=== PATIENT | female | born 1985 | race African-American/Black ===

== ENCOUNTER 2019-03-13 22:31 | Emergency (ER) | payer SELFPAY ==
[2019-03-13] MEDS ORDERED: SMZ./TMP. 800/160 MG TABLET ONE (23:04)
[2019-03-13] MEDS ORDERED: ONDANSETRON 4 MG (ODT) TAB ONE (23:05)
[2019-03-13] MEDS ORDERED: CODEINE 30MG/APAP 300MG TAB ONE (23:05)
--- NOTE | 2019-03-13 23:48 | ER ---
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 ak1 pt c/o nausea and fatigue. pt with steady gait to ER8. Transition of care: patient was not received from another setting of care. Onset of symptoms is unknown. Risk Assessment: Do you want to hurt yourself or someone else? Patient reports no desire to harm self or others. Initial Sepsis Screen: Does the patient meet any 2 criteria? No. Patient's initial sepsis screen is negative. Does the patient have a suspected source of infection? No. Patient's initial sepsis screen is negative. Care prior to arrival: None. 22:44 Method Of Arrival: Ambulatory ak1 22:44 Acuity: ALO 3 ak1 Triage Assessment: 22:45 General: Appears in no apparent distress. Behavior is cooperative. Pain: Complains of ak1 pain in right eye. EENT: No signs and/or symptoms were reported regarding the EENT system. Neuro: Level of Consciousness is awake, alert, obeys commands, Oriented to person, place, time, situation, Appropriate for age Fruit Cutter are equal bilaterally Moves all extremities. Full function Gait is steady, Speech is normal. Cardiovascular: No deficits noted. Respiratory: Airway is patent Respiratory effort is even, unlabored. GI: Abdomen is round obese, Reports nausea. : No signs and/or symptoms were reported regarding the genitourinary system. Derm: abscess to right eye lid. Musculoskeletal: No signs and/or symptoms reported regarding the musculoskeletal system. 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 - Social history:: Smoking status: Patient/guardian denies using tobacco. - Ebola Screening: : No symptoms or risks identified at this time. Screenin:47 Abuse screen: Denies threats or abuse. Denies injuries from another. Nutritional ak1 screening: No deficits noted. Tuberculosis screening: No symptoms or risk factors identified. Fall Risk None identified. Assessment: 03/14 00:04 Reassessment: Patient appears in no apparent distress at this time. Patient and/or jb4 family updated on plan of care and expected duration. Pain level reassessed. Patient is alert, oriented x 3, equal unlabored respirations, skin warm/dry/pink. PT verbalized understanding of d/c and follow up instructions. ambulated out of ED with family. Vital Signs: 03/13 22:44 BP 119 / 74; Pulse 87; Resp 18; Temp 98.1; Pulse Ox 100% on R/A; Weight 138.35 kg (R); ak1 Height 5 ft. 4 in. (162.56 cm) (R); Pain 6/10; 23:17 BP 99 / 52; Pulse 80; Resp 18; Pulse Ox 98% on R/A; ak1 10 00:00 BP 97 / 52; Pulse 80; Resp 16; Pulse Ox 97% on R/A; jb4 03/13 22:44 Body Mass Index 52.35 (138.35 kg, 162.56 cm) ak1 ED Course: 03/13 22:34 Patient arrived in ED. cl3 22:38 Jacqueline Thakkar FNP-C [facility] kb 22:38 Trent Juan MD is Attending Physician. kb 22:44 Arm band placed on Patient placed in an exam room, on a stretcher, on pulse oximetry, ak1 Patient notified of wait time. 22:45 Triage completed. ak1 22:47 Patient has correct armband on for positive identification. Placed in gown. Bed in low ak1 position. Call light in reach. Side rails up X2. Pulse ox on. NIBP on. 22:58 Roly Goff RN is Primary Nurse. jb4 03/14 00:06 No provider procedures requiring assistance completed. Patient did not have IV access jb4 during this emergency room visit. Administered Medications: 03/13 23:13 Drug: Tylenol #3 (300 mg-30 mg) 1 tablet {Note: Rass score 0.} Route: PO; jb4 23:40 Follow up: Response: No adverse reaction; Pain is decreased; RASS: Alert and Calm (0) jb4 23:13 Drug: Bactrim (160 mg-800 mg (DS) 1 tablet Route: PO; jb4 03/14 00:06 Follow up: Response: No adverse reaction jb4 03/13 23:14 Drug: Zofran 4 mg Route: PO; jb4 23:40 Follow up: Response: No adverse reaction; Nausea is decreased jb4 Outcome: 23:47 Discharge ordered by MD. quinn 03/14 00:06 Discharged to home ambulatory, with family. jb4 Condition: stable Discharge instructions given to patient, family, Instructed on discharge instructions, follow up and referral plans. medication usage, Demonstrated understanding of instructions, follow-up care, medications, Prescriptions given X 3. 00:07 Patient left the ED. jb4 Signatures: Jacqueline Thakkar, RUBBER COMPOUNDER-C DELANEY-Rona Andrade RN RN ak1 Roly Goff RN RN jb4 Christine Jackson cl3
--- NOTE | 2019-03-13 23:48 | EDPHYS ---
Physician Documentation [facility] Name: Delmi Cortez Age: 33 yrs Sex: Female : 1985 Arrival Date: 03/13/2019 Time: 22:34 Bed 8 Private MD: ED Physician Trent Juan HPI: 03/13 23:17 This 33 yrs old Female presents to ER via Ambulatory with complaints of Nausea/Vomiting.kb 23:17 The patient presents to the emergency department with nausea. Onset: The kb symptoms/episode began/occurred today. Possible causes: unknown. The symptoms are aggravated by nothing. The symptoms are alleviated by nothing. Associated signs and symptoms: Pertinent positives: nausea, malaise. Severity of symptoms: At their worst the symptoms were mild in the emergency department the symptoms are unchanged. The patient has not experienced similar symptoms in the past. The patient has not recently seen a physician. Pt reports malaise, nausea and abscess to right eyebrow that started today. 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 - Social history:: Smoking status: Patient/guardian denies using tobacco. - Ebola Screening: : No symptoms or risks identified at this time. ROS: 23:17 Neck: Negative for injury, pain, and swelling, Cardiovascular: Negative for chest pain, kb palpitations, and edema, Respiratory: Negative for shortness of breath, cough, wheezing, and pleuritic chest pain, Back: Negative for injury and pain, MS/Extremity: Negative for injury and deformity, Neuro: Negative for headache, weakness, numbness, tingling, and seizure. 23:17 Constitutional: Positive for malaise. 23:17 Abdomen/GI: Positive for nausea. 23:17 Skin: Positive for abscess, of the outer aspect of right eyebrow. Exam: 23:22 Constitutional: This is a well developed, well nourished patient who is awake, alert, kb and in no acute distress. Head/Face: Normocephalic, atraumatic. ENT: Nares patent. No nasal discharge, no septal abnormalities noted. Tympanic membranes are normal and external auditory canals are clear. Oropharynx with no redness, swelling, or masses, exudates, or evidence of obstruction, uvula midline. Mucous membranes moist. Neck: Trachea midline, no thyromegaly or masses palpated, and no cervical lymphadenopathy. Supple, full range of motion without nuchal rigidity, or vertebral point tenderness. No Meningismus. Chest/axilla: Normal chest wall appearance and motion. Nontender with no deformity. No lesions are appreciated. Cardiovascular: Regular rate and rhythm with a normal S1 and S2. No gallops, murmurs, or rubs. Normal PMI, no JVD. No pulse deficits. Respiratory: Lungs have equal breath sounds bilaterally, clear to auscultation and percussion. No rales, rhonchi or wheezes noted. No increased work of breathing, no retractions or nasal flaring. Abdomen/GI: Soft, non-tender, with normal bowel sounds. No distension or tympany. No guarding or rebound. No evidence of tenderness throughout. Back: No spinal tenderness. No costovertebral tenderness. Full range of motion. MS/ Extremity: Pulses equal, no cyanosis. Neurovascular intact. Full, normal range of motion. Neuro: Awake and alert, GCS 15, oriented to person, place, time, and situation. Cranial nerves II-XII grossly intact. Motor strength 5/5 in all extremities. Sensory grossly intact. Cerebellar exam normal. Normal gait. 23:22 Skin: abscess, that is small, of the outer aspect of right eyebrow, with induration. Vital Signs: 22:44 BP 119 / 74; Pulse 87; Resp 18; Temp 98.1; Pulse Ox 100% on R/A; Weight 138.35 kg (R); ak1 Height 5 ft. 4 in. (162.56 cm) (R); Pain 6/10; 23:17 BP 99 / 52; Pulse 80; Resp 18; Pulse Ox 98% on R/A; ak1 03/14 00:00 BP 97 / 52; Pulse 80; Resp 16; Pulse Ox 97% on R/A; jb4 03/13 22:44 Body Mass Index 52.35 (138.35 kg, 162.56 cm) ak1 MDM: 03/13 22:38 Patient medically screened. kb 23:22 Data reviewed: vital signs, nurses notes. Data interpreted: Pulse oximetry: on room air kb is 98 %. Interpretation: normal. Counseling: I had a detailed discussion with the patient and/or guardian regarding: the historical points, exam findings, and any diagnostic results supporting the discharge/admit diagnosis, lab results, the need for outpatient follow up, a family practitioner, to return to the emergency department if symptoms worsen or persist or if there are any questions or concerns that arise at home. 23:23 ED course: Pt denies abd pain. Reports only nausea with malaise ("I just don't feel kb good"). No abd tenderness upon exam. 03/13 23:02 Order name: Flu; Complete Time: 23:44 kb Administered Medications: 23:13 Drug: Tylenol #3 (300 mg-30 mg) 1 tablet {Note: Rass score 0.} Route: PO; [facility] 23:40 Follow up: Response: No adverse reaction; Pain is decreased; RASS: Alert and Calm (0) [facility] 23:13 Drug: Bactrim (160 mg-800 mg (DS) 1 tablet Route: PO; [facility] 03/14 00:06 Follow up: Response: No adverse reaction [facility] 03/13 23:14 Drug: Zofran 4 mg Route: PO; [facility] 23:40 Follow up: Response: No adverse reaction; Nausea is decreased [facility] Disposition: 03/14 07:12 Co-signature as Attending Physician, Trent Juan MD Available for consultation at ps1 all times . Disposition: 03/13/19 23:47 Discharged to Home. Impression: Cutaneous abscess of face - right eyebrow, Nausea, Malaise and fatigue. - Condition is Stable. - Discharge Instructions: Skin Abscess, [id number]. - Prescriptions for Zofran 4 mg Oral Tablet - take 1 tablet by ORAL route every 12 hours As needed; 20 tablet. Bactrim DS 800- 160 mg Oral Tablet - take 1 tablet by ORAL route every 12 hours for 7 days; 14 tablet. Diclofenac Sodium 75 mg Oral Tablet, Delayed Release (E.C.) - take 1 tablet by ORAL route 2 times per day As needed; 30 tablet. - Medication Reconciliation Form, Thank You Letter, Antibiotic Education, Prescription Opioid Use form. - Follow up: Emergency Department; When: As needed; Reason: Worsening of condition. Follow up: Private Physician; When: 2 - 3 days; Reason: Recheck today's complaints, Continuance of care, Re-evaluation by your physician. Signatures: Dispatcher [employer] EDMS Thakkar Jacqueline, DELANEY-C JUNIOR ARCHITECT-Rona Andrade, RN RN ak1 Roly Goff, RN RN jb4 Trent Juan MD MD ps1 Corrections: (The following items were deleted from the chart) 03/13 23:47 23:47 03/13/2019 23:47 Discharged to Home. Impression: Cutaneous abscess of face - kb right eyebrow; Nausea. Condition is Stable. Forms are Medication Reconciliation Form, Thank You Letter, Antibiotic Education, Prescription Opioid Use. Follow up: Emergency Department; When: As needed; Reason: Worsening of condition. Follow up: Private Physician; When: 2 - 3 days; Reason: Recheck today's complaints, Continuance of care, Re-evaluation by your physician. kb 03/14 00:07 03/13 23:47 03/13/2019 23:47 Discharged to Home. Impression: Cutaneous abscess of face jb4 - right eyebrow; Nausea; Malaise and fatigue. Condition is Stable. Discharge Instructions: Skin Abscess, [id number]. Prescriptions for Zofran 4 mg Oral Tablet - take 1 tablet by ORAL route every 12 hours As needed; 20 tablet, Bactrim DS 800-160 mg Oral Tablet - take 1 tablet by ORAL route every 12 hours for 7 days; 14 tablet. and Forms are Medication Reconciliation Form, Thank You Letter, Antibiotic Education, Prescription Opioid Use. Follow up: Emergency Department; When: As needed; Reason: Worsening of condition. Follow up: Private Physician; When: 2 - 3 days; Reason: Recheck today's complaints, Continuance of care, Re-evaluation by your physician. kb
[2019-03-14 00:46] VITALS: TEMP 98.1
[2019-03-14 00:48] VITALS: BP 97/52; O2SAT 97
== END 2019-03-14 00:07 | disposition home or self-care (01) ==
LOC: ER 22:31
DX: L02.01 Cutaneous abscess of face (principal); R53.81 Other malaise; R53.83 Other fatigue
CPT/HCPCS: 87804; 99283

== ENCOUNTER 2019-03-17 02:13 | Emergency (ER) | payer SELFPAY ==
[2019-03-17] MEDS ORDERED: CLINDAMYCIN 600MG/D5W 600 MG/50 ML BAG IV ONE (03:13)
--- NOTE | 2019-03-17 03:26 | EDPHYS ---
Physician Documentation [facility] Name: Victor M Cortez Age: 33 yrs Sex: Female : 1985 Arrival Date: 03/17/2019 Time: 02:16 Bed 7 Private MD: ED Physician Rajendra Bennett HPI: 03/17 03:36 This 33 yrs old Black Female presents to ER via Ambulatory with complaints of Eye gs Swelling. 03:36 The patient presents with an abscess of the right supraorbital ridge and right upper gs eyelid. Description: The affected area is small, confluent, fluctuant, warm. Onset: The symptoms/episode began/occurred 4 day(s) ago. Associated signs and symptoms: Pertinent positives: nausea, Pertinent negatives: fever. Severity of symptoms: At their worst the symptoms were severe, in the emergency department the symptoms are unchanged. The patient has not experienced similar symptoms in the past. 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 - Social history:: Smoking status: Patient/guardian denies using tobacco. - Ebola Screening: : No symptoms or risks identified at this time. ROS: 03:36 All other systems are negative. gs Exam: 03:36 Head/Face: Normocephalic, atraumatic. ENT: Nares patent. No nasal discharge, no gs septal abnormalities noted. Tympanic membranes are normal and external auditory canals are clear. Oropharynx with no redness, swelling, or masses, exudates, or evidence of obstruction, uvula midline. Mucous membranes moist. Neck: Trachea midline, no thyromegaly or masses palpated, and no cervical lymphadenopathy. Supple, full range of motion without nuchal rigidity, or vertebral point tenderness. No Meningismus. Chest/axilla: Normal chest wall appearance and motion. Nontender with no deformity. No lesions are appreciated. Cardiovascular: Regular rate and rhythm with a normal S1 and S2. No gallops, murmurs, or rubs. Normal PMI, no JVD. No pulse deficits. Respiratory: Lungs have equal breath sounds bilaterally, clear to auscultation and percussion. No rales, rhonchi or wheezes noted. No increased work of breathing, no retractions or nasal flaring. Abdomen/GI: Soft, non-tender, with normal bowel sounds. No distension or tympany. No guarding or rebound. No evidence of tenderness throughout. Back: No spinal tenderness. No costovertebral tenderness. Full range of motion. Skin: Warm, dry with normal turgor. Normal color with no rashes, no lesions, and no evidence of cellulitis. MS/ Extremity: Pulses equal, no cyanosis. Neurovascular intact. Full, normal range of motion. Neuro: Awake and alert, GCS 15, oriented to person, place, time, and situation. Cranial nerves II-XII grossly intact. Motor strength 5/5 in all extremities. Sensory grossly intact. Cerebellar exam normal. Normal gait. 03:36 Constitutional: The patient appears alert, awake. 03:36 Eyes: Periorbital structures: cellulitis, swelling, on the right supraorbital ridge and right upper eyelid, Conjunctiva: normal, Anterior chamber: normal. Vital Signs: 02:30 BP 129 / 68; Pulse 91; Resp 16 S; Temp 98.3(O); Pulse Ox 99% on R/A; Weight 138.35 kg bb (R); Height 5 ft. 4 in. (162.56 cm) (R); Pain 10/10; 03:50 BP 138 / 92; Pulse 83; Resp 18; Pulse Ox 100% ; ea 05:07 BP 107 / 53; Pulse 77; Resp 17 S; Pulse Ox 98% on R/A; Pain 4/10; cc3 02:30 Body Mass Index 52.35 (138.35 kg, 162.56 cm) bb MDM: 02:54 Patient medically screened. gs 03:36 Differential diagnosis: abscess. Data reviewed: vital signs, nurses notes. Counseling: gs I had a detailed discussion with the patient and/or guardian regarding: the historical points, exam findings, and any diagnostic results supporting the discharge/admit diagnosis, the need to transfer to another facility, for higher level of care, [facility] does not immediately have the required specialist. 03/17 02:46 Order name: CBC with Diff gs 03/17 02:46 Order name: Basic Metabolic Panel gs Administered Medications: 03:20 Drug: Clindamycin 600 mg Route: IVPB; Infused Over: 30 mins; Site: right antecubital; ea 04:43 Follow up: Response: No adverse reaction; IV Status: Completed infusion; IV Intake: ea 100ml 04:02 Drug: fentaNYL (PF) 50 mcg Route: IVP; Site: right hand; ea 04:57 Follow up: Response: No adverse reaction; Pain is decreased; RASS: Alert and Calm (0) cc3 Disposition: 03/17/19 03:25 Transfer ordered to [facility]. Diagnosis is Cutaneous abscess of face. - Reason for transfer: Higher level of care. - Accepting physician is conor. - Condition is Stable. - Problem is new. - Symptoms have improved. Signatures: Dispatcher [employer] EDTara Gong RN RN Leatha Masterson RN RN ea Starr, Gregory, MD MD gs Cordel, Charlene cc3 Corrections: (The following items were deleted from the chart) 05:13 02:45 Orbits W/Cont ordered. [facility] EDMI 05:19 03:25 03/17/2019 03:25 Transfer ordered to [facility]. Diagnosis is Cutaneous cc3 abscess of face. Reason for transfer: Higher level of care. Accepting physician is conor. Condition is Stable. Problem is new. Symptoms have improved.
--- NOTE | 2019-03-17 03:26 | ER ---
Nurse's Notes [facility] Name: Victor M Cortez Age: 33 yrs Sex: Female : 1985 Arrival Date: 03/17/2019 Time: 02:16 Bed 7 Private MD: Diagnosis: Cutaneous abscess of face Presentation: 03/17 02:28 Presenting complaint: Patient states: she was seen here 3 days ago for swelling to her bb right upper lid and given antibiotics but the swelling is getting worse and the pain is getting worse it is now 10/10 and radiating to her right ear. Transition of care: patient was not received from another setting of care. Onset of symptoms was March 11, 2019. Risk Assessment: Do you want to hurt yourself or someone else? Patient reports no desire to harm self or others. Initial Sepsis Screen: Does the patient meet any 2 criteria? No. Patient's initial sepsis screen is negative. Does the patient have a suspected source of infection? No. Patient's initial sepsis screen is negative. Care prior to arrival: None. 02:28 Method Of Arrival: Ambulatory bb 02:28 Acuity: ALO 3 bb Triage Assessment: 02:25 General: Appears in no apparent distress. uncomfortable, Behavior is cooperative, cc3 appropriate for age. Pain: Complains of pain in right upper eyelid. EENT: Lid(s) abscess on the right upper eyelid. Neuro: Level of Consciousness is awake, alert, obeys commands, Oriented to person, place, time, situation, Appropriate for age. Cardiovascular: Denies chest pain, Heart tones S1 S2 present Capillary refill < 3 seconds in bilateral fingers Patient's skin is warm and dry. Respiratory: Airway is patent Respiratory effort is even, unlabored, Respiratory pattern is regular, symmetrical, Breath sounds are clear bilaterally. GI: Abdomen is round obese, Bowel sounds present X 4 quads. : No signs and/or symptoms were reported regarding the genitourinary system. Derm: Skin is intact, is healthy with good turgor, Skin is pink, warm \\T\\ dry. normal. Musculoskeletal: Circulation, motion, and sensation intact. Range of motion: intact in all extremities. 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 - Social history:: Smoking status: Patient/guardian denies using tobacco. - Ebola Screening: : No symptoms or risks identified at this time. Screenin:25 Abuse screen: Denies threats or abuse. Denies injuries from another. Nutritional cc3 screening: No deficits noted. Tuberculosis screening: No symptoms or risk factors identified. Fall Risk Ambulatory Aid- None/Bed Rest/Nurse Assist (0 pts). Gait- Normal/Bed Rest/Wheelchair (0 pts) Mental Status- Oriented to own ability (0 pts). Assessment: 02:25 General: see triage assessment. cc3 03:20 Reassessment: Report called to Diana MENJIVAR at [facility]. ea 04:45 Reassessment: Patient appears in no apparent distress at this time. Patient and/or cc3 family updated on plan of care and expected duration. Pain level reassessed. Patient is alert, oriented x 3, equal unlabored respirations, skin warm/dry/pink. Patient came back from CT scan department but alarm installation technician Tawanna said CT scan procedure was not done because patient's IV cannula got infiltrated when she pushed the IV contrast and that the patient refused for another IV, Dr. Bennett informed. Moist compress applied to left antecubital area infiltration. 05:10 Reassessment: Patient appears in no apparent distress at this time. Patient and/or cc3 family updated on plan of care and expected duration. Pain level reassessed. Patient is alert, oriented x 3, equal unlabored respirations, skin warm/dry/pink. [facility] came for patient transport. Patient left ER vitally stable by EMS stretcher, no valuables left in the patient's room. Patient denies pain at this time. Vital Signs: 02:30 BP 129 / 68; Pulse 91; Resp 16 S; Temp 98.3(O); Pulse Ox 99% on R/A; Weight 138.35 kg bb (R); Height 5 ft. 4 in. (162.56 cm) (R); Pain 10/10; 03:50 BP 138 / 92; Pulse 83; Resp 18; Pulse Ox 100% ; ea 05:07 BP 107 / 53; Pulse 77; Resp 17 S; Pulse Ox 98% on R/A; Pain 4/10; cc3 02:30 Body Mass Index 52.35 (138.35 kg, 162.56 cm) bb ED Course: 02:16 Patient arrived in ED. cf2 02:19 Rajendra Bennett MD is Attending Physician. gs 02:25 Judith Webb is Primary Nurse. cc3 02:29 Triage completed. bb 02:30 Arm band placed on Patient placed in an exam room, on a stretcher, on pulse oximetry. bb 03:00 Patient has correct armband on for positive identification. Bed in low position. Call ea light in reach. Side rails up X2. 03:17 Radiology exam delayed due to lab results not completed at this time. (BUN/Creatinine) kw1 test not completed at this time. 03:20 Inserted saline lock: 20 gauge in right antecubital area, using aseptic technique. cc3 Blood collected. 03:37 Radiology exam delayed due to lab results not completed at this time. (BUN/Creatinine) kw1 test not completed at this time. 03:45 IV discontinued, intact, bleeding controlled, No redness/swelling at site. Pressure cc3 dressing applied. 04:00 Inserted saline lock: 20 gauge in right hand, using aseptic technique. inserted by RN orin Zhang. 04:12 Radiology exam delayed due to IV insertion attempt and/or patient not having kw1 appropriate IV at this time. Patient requested that original AC IV be DC'd due to "discomfort." Now only has IV in hand. 04:30 Inserted saline lock: 18 gauge in left antecubital area, using aseptic technique. cc3 inserted by charge nurse TIARA Pacheco. 04:50 IV discontinued, intact, bleeding controlled, No redness/swelling at site. Pressure cc3 dressing applied. 04:57 No provider procedures requiring assistance completed. ea Administered Medications: 03:20 Drug: Clindamycin 600 mg Route: IVPB; Infused Over: 30 mins; Site: right antecubital; ea 04:43 Follow up: Response: No adverse reaction; IV Status: Completed infusion; IV Intake: ea 100ml 04:02 Drug: fentaNYL (PF) 50 mcg Route: IVP; Site: right hand; ea 04:57 Follow up: Response: No adverse reaction; Pain is decreased; RASS: Alert and Calm (0) cc3 Intake: 04:43 IV: 100ml; Total: 100ml. ea Outcome: 03:25 ER care complete, transfer ordered by . 04:58 Instructed on the need for transfer. ea 05:10 Transferred by ground EMS Transfer form completed. Note: [facility] cc3 05:10 Condition: stable 05:19 Patient left the ED. cc3 Signatures: Tara Alexandra RN RN bb Antunez, Elena, RN RN ea Starr, Gregory, MD MD gs Wilhelm, Kimberly kw1 Judith Webb cc3 Omari Cabrera cf2 Corrections: (The following items were deleted from the chart) 05:17 04:45 Reassessment: Patient appears in no apparent distress at this time. Patient cc3 and/or family updated on plan of care and expected duration. Pain level reassessed. Patient is alert, oriented x 3, equal unlabored respirations, skin warm/dry/pink. Patient came back from CT scan department but alarm installation technician Tawanna said CT scan procedure was not done because patient's IV cannula got infiltrated when she pushed the IV contrast, Dr. Bennett informed. cc3 05:19 05:07 BP 107 / 53; Pulse 77bpm; Resp 17bpm; Spontaneous; Pulse Ox 98% RA; cc3 cc3 05:19 04:45 Reassessment: Patient appears in no apparent distress at this time. Patient cc3 and/or family updated on plan of care and expected duration. Pain level reassessed. Patient is alert, oriented x 3, equal unlabored respirations, skin warm/dry/pink. Patient came back from CT scan department but alarm installation technician Tawanna said CT scan procedure was not done because patient's IV cannula got infiltrated when she pushed the IV contrast, Dr. Bennett informed. Moist compress applied to left antecubital area infiltration. cc3
[2019-03-17] MEDS ORDERED: FENTANYL CITR 100 MCG/2 ML ONE (03:33)
[2019-03-17 04:06] LABS: Absolute Lymphocytes (CBC) 2.9 K/uL (0.7-4.9); Basophils % 0.5 % (0-1.3); Hematocrit 30.5 % (36.0-45.0); Lymphocytes % 39.7 % (15.3-44.8); MPV 8.9 fL (7.6-11.3); RBC Red Blood Cell Count 3.73 M/uL (3.86-4.86)
[2019-03-17 04:13] LABS: BUN Blood Urea Nitrogen 10 mg/dL (7-18); Bicarbonate 29 mmol/L (21-32); Glucose Level 75 mg/dL (74-106); Potassium 3.6 mmol/L (3.5-5.1); Sodium Level 141 mmol/L (136-145)
[2019-03-17 05:29] VITALS: TEMP 98.3
[2019-03-17 05:31] VITALS: BP 107/53; O2SAT 98
== END 2019-03-17 05:19 | disposition short-term general hospital (02) ==
LOC: ER 02:13
DX: L02.01 Cutaneous abscess of face (principal)
CPT/HCPCS: 36415; 80048; 85025; 96365; 96375; 99285; J3010

== ENCOUNTER 2019-04-11 17:07 | Emergency (ER) | payer OTHER, SELFPAY ==
--- NOTE | 2019-04-11 19:39 | EDPHYS ---
Physician Documentation [facility] Name: Victor M Cortez Age: 33 yrs Sex: Female : 1985 Arrival Date: 04/11/2019 Time: 17:09 Bed 14 Private MD: ED Physician Frederick Lim HPI: 04/11 18:37 This 33 yrs old Black Female presents to ER via Ambulatory with complaints of Flu jr8 Symptoms. 18:37 Patient for two days has had body aches, chills, cough, congestion, and runny nose. jr8 Denies fevers or shortness of breath. Severity of symptoms: At their worst the symptoms were mild in the emergency department the symptoms are unchanged. The patient has not experienced similar symptoms in the past. The patient has not recently seen a physician. 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 - Ebola Screening: : Patient negative for fever greater than or equal to 101.5 degrees Fahrenheit, and additional compatible Ebola Virus Disease symptoms. - Social history:: Smoking status: Patient uses tobacco products, denies chronic smoking, but will smoke occasionally. ROS: 18:37 Constitutional: Positive for body aches, chills, malaise, Negative for fever, poor PO jr8 intake. 18:37 ENT: Positive for rhinorrhea, sinus congestion, Negative for sore throat. 18:37 Respiratory: Positive for cough, Negative for dyspnea on exertion, shortness of breath, sputum production, wheezing. 18:37 All other systems are negative. Exam: 18:37 Eyes: Pupils equal round and reactive to light, extra-ocular motions intact. Lids and jr8 lashes normal. Conjunctiva and sclera are non-icteric and not injected. Cornea within normal limits. Periorbital areas with no swelling, redness, or edema. ENT: Nares patent. No nasal discharge, no septal abnormalities noted. Tympanic membranes are normal and external auditory canals are clear. Oropharynx with no redness, swelling, or masses, exudates, or evidence of obstruction, uvula midline. Mucous membranes moist. Neck: Trachea midline, no thyromegaly or masses palpated, and no cervical lymphadenopathy. Supple, full range of motion without nuchal rigidity, or vertebral point tenderness. No Meningismus. Cardiovascular: Regular rate and rhythm with a normal S1 and S2. No gallops, murmurs, or rubs. Normal PMI, no JVD. No pulse deficits. Respiratory: Lungs have equal breath sounds bilaterally, clear to auscultation and percussion. No rales, rhonchi or wheezes noted. No increased work of breathing, no retractions or nasal flaring. Abdomen/GI: Soft, non-tender, with normal bowel sounds. No distension or tympany. No guarding or rebound. No evidence of tenderness throughout. Back: No spinal tenderness. No costovertebral tenderness. Full range of motion. Skin: Warm, dry with normal turgor. Normal color with no rashes, no lesions, and no evidence of cellulitis. MS/ Extremity: Pulses equal, no cyanosis. Neurovascular intact. Full, normal range of motion. Neuro: Awake and alert, GCS 15, oriented to person, place, time, and situation. Cranial nerves II-XII grossly intact. Motor strength 5/5 in all extremities. Sensory grossly intact. Cerebellar exam normal. Normal gait. Vital Signs: 17:33 Pulse 83; Resp 22; Temp 98.9(O); Pulse Ox 100% ; Weight 145.15 kg; Height 5 ft. 4 in. sv (162.56 cm); 17:46 BP 112 / 58; rb1 18:33 BP 143 / 83; Pulse 79; Resp 19; Pulse Ox 100% on R/A; rb1 19:30 BP 118 / 73; Pulse 77; Resp 16; Pulse Ox 100% on R/A; jb4 17:33 Body Mass Index 54.93 (145.15 kg, 162.56 cm) sv MDM: 18:04 Patient medically screened. jr8 19:38 Data reviewed: vital signs, nurses notes, lab test result(s), Flu: negative and as a jr8 result, I will discharge patient. Data interpreted: Pulse oximetry: on room air is 100 %. Interpretation: normal. Counseling: I had a detailed discussion with the patient and/or guardian regarding: the historical points, exam findings, and any diagnostic results supporting the discharge/admit diagnosis, lab results, the need for outpatient follow up, a family practitioner, to return to the emergency department if symptoms worsen or persist or if there are any questions or concerns that arise at home. 04/11 18:05 Order name: Flu; Complete Time: 19:37 rb1 Administered Medications: No medications were administered Disposition: 04/12 07:20 Co-signature as Attending Physician, Frederick Lim MD I agree with the assessment and kdr plan of care. Disposition: 04/11/19 19:38 Discharged to Home. Impression: Acute upper respiratory infection, unspecified. - Condition is Stable. - Discharge Instructions: Upper Respiratory Infection, Adult. - Prescriptions for Prednisone 20 mg Oral Tablet - take 1 tablet by ORAL route once daily for 5 days; 5 tablet. Zithromax Z- Ravi 250 mg Oral Tablet - take 1 tablet by ORAL route as directed for 5 days Day 1 - take two (2) tablets one time. Day 2, 3, 4 , 5 take one (1) tablet once daily.; 6 tablet. Guaifenesin AC 10- 100 mg/5 mL Oral Liquid - take 10 milliliter by ORAL route every 4 hours As needed; 240 milliliter. - Medication Reconciliation Form, Thank You Letter, Antibiotic Education, Prescription Opioid Use form. - Follow up: Private Physician; When: 2 - 3 days; Reason: Recheck today's complaints, Continuance of care, Re-evaluation by your physician. - Problem is new. - Symptoms have improved. Signatures: Dispatcher [employer] EDND Sole Valencia RN RN sv Rittger, Kevin, MD MD [facility] Krishna Manuel PA PA jr8 Nina Aguilera, RN RN rb1 Roly Goff RN RN jb4 Corrections: (The following items were deleted from the chart) 04/11 17:33 17:33 PMHx: None; sv sv 20:01 19:38 04/11/2019 19:38 Discharged to Home. Impression: Acute upper respiratory jb4 infection, unspecified. Condition is Stable. Forms are Medication Reconciliation Form, Thank You Letter, Antibiotic Education, Prescription Opioid Use. Follow up: Private Physician; When: 2 - 3 days; Reason: Recheck today's complaints, Continuance of care, Re-evaluation by your physician. Problem is new. Symptoms have improved. jr8
--- NOTE | 2019-04-11 19:39 | ER ---
Nurse's Notes [facility] Name: Victor M Cortez Age: 33 yrs Sex: Female : 1985 Arrival Date: 04/11/2019 Time: 17:09 Bed 14 Private MD: Diagnosis: Acute upper respiratory infection, unspecified Presentation: 04/11 17:32 Presenting complaint: Patient states: cough, body aches, subjective fever,fatigue 2 sv days. Transition of care: patient was not received from another setting of care. Onset of symptoms was April 09, 2019. Risk Assessment: Do you want to hurt yourself or someone else? Patient reports no desire to harm self or others. Care prior to arrival: None. 17:32 Method Of Arrival: Ambulatory sv 17:32 Acuity: ALO 4 sv 17:35 Initial Sepsis Screen: Does the patient have a suspected source of infection? No. rb1 Patient's initial sepsis screen is negative. 17:47 Initial Sepsis Screen: Does the patient meet any 2 criteria? No. Patient's initial rb1 sepsis screen is negative. 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 - Ebola Screening: : Patient negative for fever greater than or equal to 101.5 degrees Fahrenheit, and additional compatible Ebola Virus Disease symptoms. - Social history:: Smoking status: Patient uses tobacco products, denies chronic smoking, but will smoke occasionally. Screenin:35 Abuse screen: Denies threats or abuse. Nutritional screening: No deficits noted. rb1 Tuberculosis screening: No symptoms or risk factors identified. Fall Risk None identified. Assessment: 17:35 General: Appears uncomfortable, obese, Behavior is cooperative, Reports fever for rb1 fatigue for x 2 days. Pain: Complains of pain in bodyaches Pain currently is 8 out of 10 on a pain scale. Pain began x 2 days. Neuro: Level of Consciousness is awake, alert, obeys commands, Oriented to person, place, time, situation. Cardiovascular: Capillary refill < 3 seconds is brisk in bilateral fingers. Respiratory: Reports cough that is Airway is patent Respiratory effort is even, unlabored, Respiratory pattern is regular, symmetrical. GI: Reports nausea, vomiting, since x 2 days. : No signs and/or symptoms were reported regarding the genitourinary system. Derm: Skin is dry, Skin is normal, Skin temperature is warm. 18:33 Reassessment: Patient appears in no apparent distress at this time. No changes from rb1 previously documented assessment. 19:15 Reassessment: Patient appears in no apparent distress at this time. Patient and/or jb4 family updated on plan of care and expected duration. Pain level reassessed. PT is resting in bed with family at the bedside. Respirations are even and unlabored, no s/s of distress noted. 20:00 Reassessment: Patient appears in no apparent distress at this time. Patient and/or jb4 family updated on plan of care and expected duration. Pain level reassessed. Patient is alert, oriented x 3, equal unlabored respirations, skin warm/dry/pink. PT verbalized understanding of d/c and follow up instructions. Vital Signs: 17:33 Pulse 83; Resp 22; Temp 98.9(O); Pulse Ox 100% ; Weight 145.15 kg; Height 5 ft. 4 in. sv (162.56 cm); 17:46 BP 112 / 58; rb1 18:33 BP 143 / 83; Pulse 79; Resp 19; Pulse Ox 100% on R/A; rb1 19:30 BP 118 / 73; Pulse 77; Resp 16; Pulse Ox 100% on R/A; jb4 17:33 Body Mass Index 54.93 (145.15 kg, 162.56 cm) sv ED Course: 17:09 Patient arrived in ED. as 17:33 Triage completed. sv 17:34 Nina Aguilera, RN is Primary Nurse. rb1 17:34 Arm band placed on. sv 17:35 Patient has correct armband on for positive identification. Bed in low position. Call rb1 light in reach. Side rails up X 1. Pulse ox on. NIBP on. 18:04 Krishna Manuel PA is PHCP. jr8 18:04 Frederick Lim MD is Attending Physician. 8 18:10 Flu Sent. 5 18:12 Warm blanket given. Pillow given. 5 18:12 Flu and/or RSV swab sent to lab. 5 20:00 No provider procedures requiring assistance completed. Patient did not have IV access jb4 during this emergency room visit. Administered Medications: No medications were administered Outcome: 19:38 Discharge ordered by . kimberley 20:00 Discharged to home ambulatory, with family. jb4 20:00 Condition: stable 20:00 Discharge instructions given to patient, Instructed on discharge instructions, follow up and referral plans. medication usage, Demonstrated understanding of instructions, follow-up care, medications, Prescriptions given X 3. 20:01 Patient left the ED. jb4 Signatures: Sole Valencia, TIARA RN Gisel Varela Josh, PA PA jr8 Barber, Rebecca, RN RN [facility] Roly Goff RN RN jb4 Martinez, Maria [facility] Corrections: (The following items were deleted from the chart) 17:33 17:33 PMHx: None; sv sv 17:35 17:33 145.15 kg; Height 5 ft. 4 in.; BMI: 54.9; sv sv 17:35 17:33 Pulse 83bpm; Resp 22bpm; Pulse Ox 100%; Temp 98.9F Oral; 145.15 kg; Height 5 ft. sv 4 in.; BMI: 54.9; sv 17:36 17:33 Pulse 83bpm; Resp 22bpm; Pulse Ox 100%; Temp 98.9F Oral; 145.15 kg; Height 5 ft. sv 4 in.; BMI: 54.9; sv
[2019-04-11 20:39] VITALS: TEMP 98.9; O2SAT 100
[2019-04-11 20:44] VITALS: BP 118/73
--- OUTSIDE RECORDS SUMMARY | 2019-04-15 04:30 | XMS REPORT ---
:1985 [facility] Address [address] [place] [address] Care Team Providers Name Role Phone DR GIANA HODGE Unavailable Unavailable PUNEET, MS GUEVARA Rodriguez Unavailable Unavailable MERLE NICHOLS Unavailable Unavailable Payers Payer Name Policy Type Policy Number Effective Date Expiration Date Problems This patient has no known problems. Allergies, Adverse Reactions, Alerts Allergy Allergy Status Severity Reaction(s) Onset Inactive Treating Comments Name Type Date Date Clinician aspirin DA Active DE 2015-03 00:00:0 0 Medications This patient has no known medications. Encounters Start End Encounter Admission Attending Care Care Encounter Date/Time Date/Time Type Type Clinicians Facility Department ID 2018-07-08 2018-07-08 Emergency E [facility] [id number] 17:05:00 18:50:00 GIANA 2018-07-08 2018-07-08 Emergency E [facility] [id number] 17:03:00 17:03:00 2017-09-18 2017-09-18 Emergency E [facility] [id number] 07:05:00 08:40:00 GUEVARA 2017-02-17 2017-02-17 Emergency E [facility] [id number] 13:04:00 13:45:00 GIANA Results Test Description Test Time Test Comments Text Results Atomic Results Result Comments - XR FOREARM 2 VIEWS RT 2019-03-03 17:02:00 Name: MARIAM CURIEL [facility] : 1985 Age/S: 33 / F [address] [address] Unit #: [id number] Loc: [place]io [place] [address] Phys: Lina Blair MD Acct: [id number] Dis Date: Status: REG ER PHONE #: [phone] Exam Date: 03/03/2019 1651 FAX #: Reason: right forearm and hand injury EXAMS: CPT: [id number] XR [place] [address] [place] [address] Fluoro Time: DAP (Gy m2): Air Kerma (mGy): EXAMINATION: - XR HAND 3+V RT, - XR FOREARM 2 VIEWS RT. LOCATION: R16. HISTORY: Right forearm and hand injury. COMPARISON: None. FINDINGS/ IMPRESSION: Two views of RIGHT forearm demonstrates no radiographic evidence of acute osseous abnormality no radiopaque foreign body. Visualized left elbow joint appears intact. Three views of RIGHT hand demonstrates no dorsal soft tissue swelling. No radiographic evidence of acute osseous abnormality. Articular spaces are well-maintained. There are lucencies involving capitate, nonspecific. at 1702 Reported and signed by: Iza Granados M.D. CC: Lina Blair MD; Kirsten PLASENCIA PAGE 1 Signed Report Name: MARIAM CURIEL : 1985 Age/S: 33 / F [address] [facility] Unit #: [id number] Loc: Buffy Mag[place] [address] Phys: Lina Blair MD Acct: [id number] Dis Date: Status: REG ER PHONE #: [phone] Exam Date: 03/03/2019 1651 FAX #: Reason: right forearm and hand injury EXAMS: CPT: [id number] XR FORE[place] [address] [place] [address] Fluoro Time: DAP (Gy m2): Air Kerma (mGy): <Continued> Technologist: Nayana Hodge, RT(R)(CT)(MRI) Trnscb Date/Time: 03/03/2019 (1702) [email or web address] Orig Print D/T: S: 03/03/2019 (2978) PAGE 2 Signed Report - XR HAND 3+V RT 2019-03-03 17:02:00 Name: MARIAM CURIEL [facility] : 1985 Age/S: 33 / F [address] [address] Unit #: [id number] Loc: [place]y Mag[place]anes [address] Phys: Lina Blair MD Acct: [id number] Dis Date: Status: REG ER PHONE #: [phone] Exam Date: 03/03/2019 1651 FAX #: Reason: right forearm and hand injury EXAMS: CPT: [id number] XR HAND 3+[place] [address] Fluoro Time: DAP (Gy m2): Air Kerma (mGy): EXAMINATION: - XR HAND 3+V RT, - XR FOREARM 2 VIEWS RT. LOCATION: R16. HISTORY: Right forearm and hand injury. COMPARISON: None. FINDINGS/ IMPRESSION: Two views of RIGHT forearm demonstrates no radiographic evidence of acute osseous abnormality no radiopaque foreign body. Visualized left elbow joint appears intact. Three views of RIGHT hand demonstrates no dorsal soft tissue swelling. No radiographic evidence of acute osseous abnormality. Articular spaces are well-maintained. There are lucencies involving capitate, nonspecific. at 1702 Reported and signed by: Iza Granados M.D. CC: Lina Blair MD; Kirsten PLASENCIA PAGE 1 Signed Report [facility] 1985 Age/S: 33 / F [address] [facility] Unit #: [id number] Loc: Buffy Magallanes [address] Phys: Lina Blair MD Acct: [id number] Dis Date: Status: REG ER PHONE #: [phone] Exam Date: 03/03/2019 165 FAX #: Reason: right forearm and hand injury EXAMS: CPT: [id number] XR HAND 3+[place] [address] Fluoro Time: DAP (Gy m2): Air Kerma (mGy): <Continued> Technologist: Nayana Hodge, RT(R)(CT)(MRI) Trnscb Date/Time: 03/03/2019 (1702) [email or web address] Orig Print D/T: S: 03/03/2019 (1706) PAGE 2 Signed Report UR HCG QUAL 2019-03-03 16:35:00 Test Item Value Reference Range Comments UR HCG QUAL (test code=HCGQLU) NEGATIVE NEGATIVE XR CHEST 1 VIEW [id number] 18:54:47LOCATION: V20 EXAM: XR CHEST 1 VIEW PORTABLEHISTORY: [id number]: Chest pain TECHNIQUE: Frontal view ofthe chest.COMPARISON: None.FINDINGS:The study is limited due to underpenetration of the overlying soft tissues.No confluent consolidation. No evidence of pneumothorax or pleural effusion. The heart is normal in size. The mediastinal contours are unremarkable. Osseous structures are intact. IMPRESSION:Limited examination, without evidence of acute cardiopulmonary disease.COMPREHENSIVE METABOLIC [id number] 18:20:00 Test Item Value Reference Range Comments GLUCOSE (test code=06D) 85 mg/dL 75-100 SODIUM (test code=01A) 139 mmol/L 136-145 POTASSIUM (test code=01B) 3.6 mmol/L 3.6-5.1 CHLORIDE (test code=04A) 105 mmol/L 98-107 CO2 (test code=02A) 27 mmol/L 22-32 ANION GAP (test code=ANG) 10.6 mmol/L BUN (test code=05D) 14 mg/dL 7-18 CREATININE (test code=03E) 0.8 mg/dL 0.4-1.1 BUN/CREA (test code=BCR) 18 12-20 CALCIUM (test code=09D) 8.3 mg/dL 8.3-9.5 BILI TOTAL (test code=11A) 0.3 mg/dL 0.2-1.0 PROTEIN (test code=07D) 7.9 g/dL 6.4-8.2 ALBUMIN (test code=08D) 3.6 g/dL 3.5-4.8 GLOBULIN (test code=GLB) 4.3 g/dL 1.5-3.8 ALB/GLOB (test code=AGRR) 0.8 1.0-2.6 ALK PHOS (test code=35A) 80 IU/L 42-121 AST (test code=30A) 77 IU/L <=42 ALT (test code=31A) 47 IU/L <=78 TROPONIN [id number] 18:19:00 Test Item Value Reference Range Comments TROPONIN I (test code=A84) <0.015 ng/mL 0.000-0.045 CBC (INCLUDES AUTOMATED DIFFERENTIAL)2018-07-08 18:02:00 Test Item Value Reference Range Comments WBC (test code=WBC) 9.7 10\S\3/uL 4.5-11.0 RBC (test code=RBC) 4.19 10\S\6/uL 4.30-5.70 HGB (test code=HBG) 11.0 g/dL 12.0-15.5 HCT (test code=HCT) 35.4 % 35.0-44.0 MCV (test code=MCV) 84.5 fL 81.0-99.0 MCH (test code=MCH) 26.3 pg 27.0-31.0 MCHC (test code=MCHC) 31.1 g/dL 32.0-36.0 RDW (test code=RDW) 15.9 % 11.5-14.5 PLT (test code=PLT) 237 10\S\3/uL 130-400 MPV (test code=MPV) 10.4 fL 9.4-12.4 NEUTROP # (test code=NE#) 6.9 10\S\3/uL 1.6-8.0 LYMPH # (test code=LY#) 2.0 10\S\3/uL 1.1-3.5 MONOCYTE # (test code=MO#) 0.7 10\S\3/uL 0.0-1.1 EOSINOPH # (test code=EO#) 0.1 10\S\3/uL 0.0-0.7 BASOPHIL # (test code=BA#) 0.0 10\S\3/uL 0.0-0.3 IG # (test code=IG#) 0.03 10\S\3/uL 0.00-0.06 NRBC # (test code=NRBC#) 0.00 10\S\3/uL 0.00-0.01 NEUTROPH % (test code=NE%) 70.9 % 35.0-73.0 LYMPH % (test code=LY%) 20.6 % 20.0-55.0 MONO % (test code=MO%) 7.3 % 2.5-10.0 EOSINOPH % (test code=EO%) 0.6 % 0.0-5.0 BASOPHIL % (test code=BA%) 0.3 % 0.0-2.0 IG % (test code=IG%) 0.3 % 0.0-0.8 NRBC% (test code=NRBC%) 0.0 % 0.0-0.2 MANDIFF (test code=MDIFF) NO NO RBC MORPH (test code=RBCMOR) NORMAL DIRECT CHLAMYDIA [id number] 15:43:00 Test Item Value Reference Range Comments CHLAMYDIA TRACHOMATIS NOT DETECTED NOT DETECTED (test pora=[id number]) NEISSERIA GONORRHOEAE NOT DETECTED NOT DETECTED (test uhbs=[id number]) Endnote (test This test was performed using shey=[id number]) the APTIMA COMBO2 Assay([employer]The analytical performance characteristics of thisassay, when used to test SurePath specimens havebeen determined by [employer].TEST PERFORMED AT:[employer] [id number] [place] [id number] ORO M.D. URINALYSIS WITH [id number] 08:22:00 Test Item Value Reference Range Comments COLOR (test code=COLU) YELLOW YELLOW CLARITY (test code=CLA) CLOUDY CLEAR GLUCOSE UR (test code=UA GLUCOSE) NEGATIVE NEGATIVE BILI UR (test code=BILE) NEGATIVE NEGATIVE KETONES UR (test code=DELIA) NEGATIVE NEGATIVE SP GRAVITY (test code=SPGR) 1.022 1.005-1.030 PH UR (test code=PH) 6.0 4.5-8.0 PROTEIN UR (test code=PU) NEGATIVE NEGATIVE UROBIL UR (test code=UROQ) 1.0 EU/dL 0.2-1.0 NITRITE UR (test code=NITRITE) NEGATIVE NEGATIVE BLOOD UR (test code=UA BLOOD) NEGATIVE NEGATIVE LEUK ES UR (test code=LEUK) NEGATIVE NEGATIVE WBC UR (test code=UWBC) 0 /HPF 0-5 RBC UR (test code=URBC) 0 /HPF 0-2 EPITH UR (test code=UEPC) MODERATE /LPF FEW BACTERIA UR (test code=UBACT) FEW /HPF NONE CAST UR (test code=CAST) /LPF NONE CRYSTAL UR (test code=CRYU) / LPF NONE MUCUS UR (test code=MUC) / HPF NONE AMORPH UR (test code=LORI) MANY / HPF NONE TRICH UR (test code=UTRICH) /HPF NONE YEAST UR (test code=UY) /HPF NONE SPERM UR (test code=USPERM) /HPF NONE WET [id number] 08:06:00 Test Item Value Reference Range Comments Direct Exam (test code=DE1) RARE WHITE BLOOD CELLS SEEN Direct Exam (test code=DE2) FEW CLUE CELLS SEEN Direct Exam (test code=DE3) NO TRICHOMONAS SEEN Direct Exam (test code=DE4) NO YEAST SEEN CREATINE KINASE (CK), TOTAL AND [id number] 09:27:00 Test Item Value Reference Range Comments CREATINE KINASE TOTAL (BEAKER) (test gktd=695) 224 U/L 25-235 CREATINE KINASE-MB (BEAKER) (test kwsn=645) 1.0 ng/mL 0.0-4.9 CREATINE KINASE-MB INDEX (BEAKER) (test xoxd=423) 0.4 % CK-MB Reference Range:<5 Normal5-10 Borderline>10 AbnormalTROPONIN [id number] 09:27:00 Test Item Value Reference Range Comments TROPONIN I (BEAKER) (test oqul=644) < ng/mL 0.00-0.15 Troponin I (TnI) levels must be interpreted in the context of the presenting symptoms and the clinical findings. Elevated TnI levels indicate myocardial damage, but are not specific for ischemic heart disease. Elevated TnI levels are seen in patients with other cardiac conditions (including myocarditis and congestive heart failure), and slight TnI elevations occur in patients with other conditions, including sepsis, renal failure, acidosis, acute neurological disease, and persistent tachyarrhythmia.TROPONIN [id number] 22:50:00 Test Item Value Reference Range Comments TROPONIN I (BEAKER) (test tmui=425) < ng/mL 0.00-0.15 Troponin I (TnI) levels must be interpreted in the context of the presenting symptoms and the clinical findings. Elevated TnI levels indicate myocardial damage, but are not specific for ischemic heart disease. Elevated TnI levels are seen in patients with other cardiac conditions (including myocarditis and congestive heart failure), and slight TnI elevations occur in patients with other conditions, including sepsis, renal failure, acidosis, acute neurological disease, and persistent tachyarrhythmia.CREATINE KINASE (CK), TOTAL AND [id number] 22:49:00 Test Item Value Reference Range Comments CREATINE KINASE TOTAL (BEAKER) (test gaad=361) 264 U/L 25-235 CREATINE KINASE-MB (BEAKER) (test uriu=884) 1.4 ng/mL 0.0-4.9 CREATINE KINASE-MB INDEX (BEAKER) (test jitt=235) 0.5 % CK-MB Reference Range:<5 Normal5-10 Borderline>10 AbnormalCBC W/PLT COUNT & AUTO [id number] 15:34:00 Test Item Value Reference Range Comments WHITE BLOOD CELL COUNT (BEAKER) (test vbgh=677) 8.8 K/ L 4.0-10.0 RED BLOOD CELL COUNT (BEAKER) (test gmfz=459) 4.14 M/ L 4.00-5.00 HEMOGLOBIN (BEAKER) (test olbo=183) 10.1 GM/DL 12.0-15.0 HEMATOCRIT (BEAKER) (test fqve=364) 31.9 % 36.0-45.0 MEAN CORPUSCULAR VOLUME (BEAKER) (test wuib=260) 77.1 fL 82.0-99.0 MEAN CORPUSCULAR HEMOGLOBIN (BEAKER) (test 24.4 pg 27.0-33.0 loes=757) MEAN CORPUSCULAR HEMOGLOBIN CONC (BEAKER) (test 31.6 GM/DL 32.0-36.0 vsnh=120) RED CELL DISTRIBUTION WIDTH (BEAKER) (test 17.4 % 10.3-14.2 kzcy=769) PLATELET COUNT (BEAKER) (test dffd=866) 263 K/CU MM 150-430 MEAN PLATELET VOLUME (BEAKER) (test vxzq=720) 8.5 fL 6.5-10.5 NEUTROPHILS RELATIVE PERCENT (BEAKER) (test 52 % jlbp=382) LYMPHOCYTES RELATIVE PERCENT (BEAKER) (test 37 % qcct=165) MONOCYTES RELATIVE PERCENT (BEAKER) (test 8 % ozfq=759) EOSINOPHILS RELATIVE PERCENT (BEAKER) (test 3 % mbmg=698) BASOPHILS RELATIVE PERCENT (BEAKER) (test 1 % vwid=855) NEUTROPHILS ABSOLUTE COUNT (BEAKER) (test 4.50 K/ L 1.80-8.00 bdlx=309) LYMPHOCYTES ABSOLUTE COUNT (BEAKER) (test 3.30 K/ L 1.48-4.50 yicc=156) MONOCYTES ABSOLUTE COUNT (BEAKER) (test 0.70 K/ L 0.00-1.30 xzps=883) EOSINOPHILS ABSOLUTE COUNT (BEAKER) (test 0.30 K/ L 0.00-0.50 zuxf=651) BASOPHILS ABSOLUTE COUNT (BEAKER) (test 0.00 K/ L 0.00-0.20 yghm=235) (MANUAL DIFFERENTIAL)[id number] 15:34:00 Test Item Value Reference Range Comments NEUTROPHILS - REL (DIFF) (BEAKER) (test 48 % hghq=4618) LYMPHOCYTES - REL (DIFF) (BEAKER) (test 43 % fdeh=4258) MONOCYTES - REL (DIFF) (BEAKER) (test ffji=3037) 5 % EOSINOPHILS - REL (DIFF) (BEAKER) (test 2 % rqzt=1205) BANDS - REL (DIFF) (BEAKER) (test ntua=7410) 2 % 0-10 NEUTROPHILS - ABS (DIFF) (BEAKER) (test 4.22 K/ L 1.80-8.00 nptu=6251) LYMPHOCYTES - ABS (DIFF) (BEAKER) (test 3.78 K/ L 1.48-4.50 tiof=1764) MONOCYTES - ABS (DIFF) (BEAKER) (test pnsf=3347) 0.44 K/ L 0.00-1.30 EOSINOPHILS - ABS (DIFF) (BEAKER) (test 0.18 K/ L 0.00-0.50 rref=6344) BANDS-ABS (DIFF) (BEAKER) (test udxh=6770) 0.2 K/ L 0.0-0.8 TOTAL COUNTED (BEAKER) (test rcck=6152) 100 BANDS + SEGMENTED NEUTROPHILS (BEAKER) (test 4.40 ifta=2145) WBC MORPHOLOGY (BEAKER) (test plyq=632) Normal PLT MORPHOLOGY (BEAKER) (test ipvx=150) Normal HYPOCHROMIA (BEAKER) (test dsjr=735) 2+ moderate [id number] 15:30:00 Test Item Value Reference Range Comments D-DIMER QUANTITATIVE (BEAKER) (test chsd=286) 0.33 MG/L FEU <0.50 REGARDING D-DIMER RESULTS: The 98% NPV (Negative Predictive Value) for DVT/PE exclusion is 0.50 mg/LFEU as suggested by the brace maker and as approved by the FDA.RAPID DRUG SCREEN, [id number] 15:16:00 Test Item Value Reference Range Comments BARBITURATE URINE (BEAKER) (test alqm=050) Negative Negative BENZODIAZEPINE SCREEN URINE (BEAKER) (test Negative Negative zfuw=225) COCAINE (METAB.) SCREEN (BEAKER) (test lfws=8330) Negative Negative METHADONE SCREEN (BEAKER) (test xwso=8868) Negative Negative OPIATE SCREEN URINE (BEAKER) (test nkcr=428) Negative Negative CANNABINOID SCREEN URINE (BEAKER) (test agax=063) Negative Negative AMPH/METHAMPH SCREEN (BEAKER) (test smwk=9806) Negative Negative PHENCYCLIDINE SCREEN URINE (BEAKER) (test qtkr=153) Negative Negative DRUG CUTOFF CONC.Cocaine 300 ng/mL Cannabinoid 50 ng/mLBenzodiazepine 200 ng/mLBarbiturate 200 ng/ mLPhencyclidine 25 ng/mLOpiate 300 ng/mLMethadone 300 ng/mLAmphetamine/ 1000 ng/mL MethamphetamineThis assay provides an unconfirmed qualitative test result for the clinical management of patients in emergency situations. Chain of custody not maintained. Some izlk-yfx-fpxfrgy medications, as well as adulterants, may cause inaccurate results. Clinical correlation should be applied. A more comprehensivedrug screen or confirmation of a detected drug may be performed upon request.CREATINE KINASE (CK), TOTAL AND [id number] 15:13:00 Test Item Value Reference Range Comments CREATINE KINASE TOTAL (BEAKER) (test mzeq=503) 329 U/L 25-235 CREATINE KINASE-MB (BEAKER) (test gkzh=544) 1.5 ng/mL 0.0-4.9 CREATINE KINASE-MB INDEX (BEAKER) (test ftmc=633) 0.5 % CK-MB Reference Range:<5 Normal5-10 Borderline>10 AbnormalTROPONIN [id number] 15:13:00 Test Item Value Reference Range Comments TROPONIN I (BEAKER) (test dupm=609) < ng/mL 0.00-0.15 Troponin I (TnI) levels must be interpreted in the context of the presenting symptoms and the clinical findings. Elevated TnI levels indicate myocardial damage, but are not specific for ischemic heart disease. Elevated TnI levels are seen in patients with other cardiac conditions (including myocarditis and congestive heart failure), and slight TnI elevations occur in patients with other conditions, including sepsis, renal failure, acidosis, acute neurological disease, and persistent tachyarrhythmia.URINALYSIS W/ REFLEX URINE [id number] 15:12:00 Test Item Value Reference Range Comments COLOR (BEAKER) (test emvm=013) Yellow CLARITY (BEAKER) (test drca=288) Clear SPECIFIC GRAVITY UA (BEAKER) (test wxfk=002) 1.010 1.001-1.035 PH UA (BEAKER) (test hcbd=538) 7.0 5.0-8.0 PROTEIN UA (BEAKER) (test hayo=896) Negative Negative GLUCOSE UA (BEAKER) (test oawd=787) Negative Negative KETONES UA (BEAKER) (test altr=255) Negative Negative BILIRUBIN UA (BEAKER) (test igtv=612) Negative Negative BLOOD UA (BEAKER) (test ucrm=992) Negative Negative NITRITE UA (BEAKER) (test tgyv=662) Negative Negative LEUKOCYTE ESTERASE UA (BEAKER) (test regi=473) Negative Negative UROBILINOGEN UA (BEAKER) (test ddrb=173) 1.0 mg/dL 0.2-1.0 BACTERIA (BEAKER) (test qimx=854) Few RBC UA-MANUAL (BEAKER) (test yrmk=2805) <5 /HPF WBC UA-MANUAL (BEAKER) (test beij=9227) <5 /HPF SQUAMOUS EPITHELIAL MANUAL (BEAKER) (test 5-10 /HPF qnhb=2487) SOURCE(BEAKER) (test aesg=3707) B-TYPE NATRIURETIC FACTOR (BNP)2016-11-21 15:12:00 Test Item Value Reference Range Comments B-TYPE NATRIURETIC PEPTIDE (BEAKER) (test epjg=950) < pg/mL 0-100 COMPREHENSIVE METABOLIC [id number] 15:05:00 Test Item Value Reference Range Comments TOTAL PROTEIN (BEAKER) 7.5 gm/dL 6.0-8.5 (test omgb=278) ALBUMIN (BEAKER) (test 3.8 g/dL 3.5-5.0 mcif=5238) ALKALINE PHOSPHATASE 78 U/L 30-115 (BEAKER) (test oiob=068) BILIRUBIN TOTAL (BEAKER) 0.2 mg/dL 0.1-1.2 (test atwi=447) SODIUM (BEAKER) (test 141 meq/L 135-148 fovr=428) POTASSIUM (BEAKER) (test 3.8 meq/L 3.6-5.5 ujqc=037) CHLORIDE (BEAKER) (test 107 meq/L 98-106 lrmt=477) CO2 (BEAKER) (test 26 meq/L 20-29 hcuk=678) BLOOD UREA NITROGEN 13 mg/dL 10-26 (BEAKER) (test sdpj=767) CREATININE (BEAKER) (test 0.90 mg/dL 0.50-1.20 oavd=722) GLUCOSE RANDOM (BEAKER) 89 mg/dL 70-110 (test iewm=386) CALCIUM (BEAKER) (test 8.8 mg/dL 8.5-10.5 vdoq=819) AST (SGOT) (BEAKER) (test 16 U/L 5-40 rlbm=947) ALT (SGPT) (BEAKER) (test 11 U/L 5-50 fcef=518) EGFR (BEAKER) (test 90 mL/min/1.73 sq m ESTIMATED GFR IS NOT vlsv=9914) ACCURATE CREATININE CLEARANCE IN PREDICTING GLOMERULAR FILTRATION RATE. ESTIMATED GFR IS NOT APPLICABLE FOR DIALYSIS PATIENTS. SCREEN, [id number] 15:02:00 Test Item Value Reference Range Comments TEST URINE (BEAKER) (test jnjf=710) Negative
== END 2019-04-11 20:01 | disposition home or self-care (01) ==
LOC: ER 17:07
DX: J06.9 Acute upper respiratory infection, unspecified (principal)
CPT/HCPCS: 87804; 99283

== ENCOUNTER 2019-06-16 09:21 | Emergency (ER) | payer OTHER ==
--- OUTSIDE RECORDS SUMMARY | 2019-06-16 09:23 | XMS REPORT ---
:1985 [facility] Address [address] [place] [address] Care Team Providers Name Role Phone DR GIANA HODGE Unavailable Unavailable PUNEET, RICHARD Unavailable Unavailable SIMONEMERLE Unavailable Unavailable Payers Payer Name Policy Type Policy Number Effective Date Expiration Date Problems This patient has no known problems. Allergies, Adverse Reactions, Alerts Allergy Allergy Status Severity Reaction(s) Onset Inactive Treating Comments Name Type Date Date Clinician aspirin DA Active PA 2015-03 00:00:0 0 Medications This patient has no known medications. Encounters Start End Encounter Admission Attending Care Care Encounter Date/Time Date/Time Type Type Clinicians Facility Department ID 2018-07-08 2018-07-08 Emergency E AYESHA [facility] [id number] 17:05:00 18:50:00 GIANA 2018-07-08 2018-07-08 Emergency E [facility] [id number] 17:03:00 17:03:00 2017-09-18 2017-09-18 Emergency E PUNEET [facility] [id number] 07:05:00 08:40:00 GUEVARA 2017-02-17 2017-02-17 Emergency E AYESHA [facility] [id number] 13:04:00 13:45:00 GIANA Results Test Description Test Time Test Comments Text Results Atomic Results Result Comments - XR FOREARM 2 VIEWS RT 2019-03-03 17:02:00 Name: MARIAM CURIEL [facility] [place] : 1985 Age/S: 33 / F [address] [address] [place] Unit #: [id number] Loc: [place] [address] Phys: Lina Blair MD Acct: [id number] Dis Date: Status: REG ER PHONE #: [phone] Exam Date: 03/03/2019 1651 FAX #: Reason: right forearm and hand injury EXAMS: CPT: [id number] XR FOREARM [address] [place] [address] Fluoro Time: DAP (Gy m2): Air Kerma [...] PLASENCIA PAGE 1 Signed [facility] 1985 Age/S: 33 / F [address] [facility] [place] Unit #: [id number] Loc: [place] [address] Phys: Lina Blair MD Acct: [id number] Dis Date: Status: REG ER PHONE #: [phone] Exam Date: 03/03/2019 1651 FAX #: Reason: right forearm and hand injury EXAMS: CPT: [id number] XR FOREARM [address] [place] [address] Fluoro Time: DAP (Gy m2): Air Kerma (mGy): <Continued> Technologist: Nayana Hodge RT(R)(CT)(MRI) Trnscb Date/Time: 03/03/2019 (170) NereidaANS4 Orig Print D/T: S: 03/03/2019 (1706) PAGE 2 Signed Report - XR HAND 3+V RT 2019-03-03 17:02:00 Name: MARIAM CURIEL [facility] : 1985 Age/S: 33 / F [address] [facility] Unit #: [id number] Loc: [place] [address] Phys: Lina Blair MD Acct: [id number] Dis Date: Status: REG ER PHONE #: [phone] Exam Date: 03/03/2019 1651 FAX #: Reason: right forearm and hand injury EXAMS: CPT: [id number] XR HAND 3+[place] [address] Fluoro Time: DAP (Gy m2): Air Kerma [...] PLASENCIA PAGE 1 Signed Report [facility] 1985 Age/S: 33 / F [id number] [place] [address] Unit #: [id number] Loc: [place] [address] Phys: Lina Blair MD Acct: [id number] Dis Date: Status: REG ER PHONE #: [phone] Exam Date: 03/03/2019 1651 FAX #: Reason: right forearm and hand injury EXAMS: CPT: [id number] XR HAND 3+[place] [address] Fluoro Time: DAP (Gy m2): Air Kerma (mGy): <Continued> Technologist: Nayana Hodge RT(R)(CT)(MRI) Trnscb Date/Time: 03/03/2019 (1702) NereidaANS4 Orig Print D/T: S: 03/03/2019 (2573) PAGE 2 Signed Report UR HCG QUAL 2019-03-03 16:35:00 Test Item Value Reference Range Comments UR HCG QUAL (test code=HCGQLU) NEGATIVE NEGATIVE XR CHEST 1 VIEW [id number] 18:54:47LOCATION: V20 EXAM: XR CHEST 1 VIEW PORTABLEHISTORY: [id number]: Chest pain TECHNIQUE: Frontal view ofthe chest.COMPARISON: None.FINDINGS:The study is limited due to underpenetration of the overlying soft tissues.No confluent consolidation. No evidence of pneumothorax or pleural effusion. The heart is normal in size. The mediastinal contours are unremarkable. Osseous structures are intact. IMPRESSION:Limited examination, without evidence of acute cardiopulmonary disease.COMPREHENSIVE METABOLIC [id number] 18:20:00 Test Item Value Reference Range Comments [...] ALT (test code=31A) 47 IU/L <=78 TROPONIN [id number] 18:19:00 Test Item Value Reference Range Comments [...] RBC MORPH (test code=RBCMOR) NORMAL DIRECT CHLAMYDIA [id number] 15:43:00 Test Item Value Reference Range Comments CHLAMYDIA TRACHOMATIS NOT DETECTED NOT DETECTED (test jcyz=45279022) NEISSERIA GONORRHOEAE NOT DETECTED NOT DETECTED (test lxxc=47149436) Endnote (test This test was performed using phxq=84985475) the APTIMA COMBO2 Assay([employer]The analytical performance characteristics of thisassay, when used to test SurePath specimens havebeen determined by [facility].TEST PERFORMED AT:[employer] [address] [address]CTYVWGRAYSON ORO M.D. URINALYSIS WITH [id number] 08:22:00 Test Item Value Reference Range Comments [...] SPERM UR (test code=USPERM) /HPF NONE WET [id number] 08:06:00 Test Item Value Reference Range Comments Direct Exam (test code=DE1) RARE WHITE BLOOD CELLS SEEN Direct Exam (test code=DE2) FEW CLUE CELLS SEEN Direct Exam (test code=DE3) NO TRICHOMONAS SEEN Direct Exam (test code=DE4) NO YEAST SEEN CREATINE KINASE (CK), TOTAL AND [id number] 09:27:00 Test Item Value Reference Range Comments CREATINE KINASE TOTAL (BEAKER) (test mmpt=825) 224 U/L 25-235 CREATINE KINASE-MB (BEAKER) (test bjyk=306) 1.0 ng/mL 0.0-4.9 CREATINE KINASE-MB INDEX (BEAKER) (test swdu=490) 0.4 % CK-MB Reference Range:<5 Normal5-10 Borderline>10 AbnormalTROPONIN [id number] 09:27:00 Test Item Value Reference Range Comments TROPONIN I (BEAKER) (test vzhu=725) < ng/mL 0.00-0.15 Troponin I (TnI) levels [...] acidosis, acute neurological disease, and persistent tachyarrhythmia.TROPONIN [id number] 22:50:00 Test Item Value Reference Range Comments TROPONIN I (BEAKER) (test qmqc=196) < ng/mL 0.00-0.15 Troponin I (TnI) levels [...] and persistent tachyarrhythmia.CREATINE KINASE (CK), TOTAL AND [id number] 22:49:00 Test Item Value Reference Range Comments CREATINE KINASE TOTAL (BEAKER) (test nmvf=194) 264 U/L 25-235 CREATINE KINASE-MB (BEAKER) (test wiaj=339) 1.4 ng/mL 0.0-4.9 CREATINE KINASE-MB INDEX (BEAKER) (test rqbl=428) 0.5 % CK-MB Reference Range:<5 Normal5-10 Borderline>10 AbnormalCBC W/PLT COUNT & AUTO [id number] 15:34:00 Test Item Value Reference Range Comments WHITE BLOOD CELL COUNT (BEAKER) (test uass=760) 8.8 K/ L 4.0-10.0 RED BLOOD CELL COUNT (BEAKER) (test ygjp=448) 4.14 M/ L 4.00-5.00 HEMOGLOBIN (BEAKER) (test ghdg=180) 10.1 GM/DL 12.0-15.0 HEMATOCRIT (BEAKER) (test aztj=399) 31.9 % 36.0-45.0 MEAN CORPUSCULAR VOLUME (BEAKER) (test hnwn=823) 77.1 fL 82.0-99.0 MEAN CORPUSCULAR HEMOGLOBIN (BEAKER) (test 24.4 pg 27.0-33.0 blpn=509) MEAN CORPUSCULAR HEMOGLOBIN CONC (BEAKER) (test 31.6 GM/DL 32.0-36.0 mdzy=839) RED CELL DISTRIBUTION WIDTH (BEAKER) (test 17.4 % 10.3-14.2 fkuf=556) PLATELET COUNT (BEAKER) (test vgmh=152) 263 K/CU MM 150-430 MEAN PLATELET VOLUME (BEAKER) (test xzpb=156) 8.5 fL 6.5-10.5 NEUTROPHILS RELATIVE PERCENT (BEAKER) (test 52 % vffv=099) LYMPHOCYTES RELATIVE PERCENT (BEAKER) (test 37 % jwnp=346) MONOCYTES RELATIVE PERCENT (BEAKER) (test 8 % nayj=032) EOSINOPHILS RELATIVE PERCENT (BEAKER) (test 3 % ihsc=485) BASOPHILS RELATIVE PERCENT (BEAKER) (test 1 % msdg=207) NEUTROPHILS ABSOLUTE COUNT (BEAKER) (test 4.50 K/ L 1.80-8.00 kgrd=455) LYMPHOCYTES ABSOLUTE COUNT (BEAKER) (test 3.30 K/ L 1.48-4.50 rowd=250) MONOCYTES ABSOLUTE COUNT (BEAKER) (test 0.70 K/ L 0.00-1.30 meof=978) EOSINOPHILS ABSOLUTE COUNT (BEAKER) (test 0.30 K/ L 0.00-0.50 vuow=574) BASOPHILS ABSOLUTE COUNT (BEAKER) (test 0.00 K/ L 0.00-0.20 brgr=896) (MANUAL DIFFERENTIAL)2016-11-21 15:34:00 Test Item Value Reference Range Comments NEUTROPHILS - REL (DIFF) (BEAKER) (test 48 % bdlx=8314) LYMPHOCYTES - REL (DIFF) (BEAKER) (test 43 % tnrm=3129) MONOCYTES - REL (DIFF) (BEAKER) (test aasz=5776) 5 % EOSINOPHILS - REL (DIFF) (BEAKER) (test 2 % gfad=6083) BANDS - REL (DIFF) (BEAKER) (test yfsa=0591) 2 % 0-10 NEUTROPHILS - ABS (DIFF) (BEAKER) (test 4.22 K/ L 1.80-8.00 ekwt=4027) LYMPHOCYTES - ABS (DIFF) (BEAKER) (test 3.78 K/ L 1.48-4.50 hwrk=0060) MONOCYTES - ABS (DIFF) (BEAKER) (test lgil=6649) 0.44 K/ L 0.00-1.30 EOSINOPHILS - ABS (DIFF) (BEAKER) (test 0.18 K/ L 0.00-0.50 sdgq=0146) BANDS-ABS (DIFF) (BEAKER) (test gonp=4191) 0.2 K/ L 0.0-0.8 TOTAL COUNTED (BEAKER) (test cgci=2070) 100 BANDS + SEGMENTED NEUTROPHILS (BEAKER) (test 4.40 eqfg=5603) WBC MORPHOLOGY (BEAKER) (test ytph=563) Normal PLT MORPHOLOGY (BEAKER) (test jecv=361) Normal HYPOCHROMIA (BEAKER) (test vbwx=173) 2+ moderate [id number] 15:30:00 Test Item Value Reference Range Comments D-DIMER QUANTITATIVE (BEAKER) (test bvfv=358) 0.33 MG/L FEU <0.50 REGARDING D-DIMER RESULTS: The 98% NPV (Negative Predictive Value) for DVT/PE exclusion is 0.50 mg/LFEU as suggested by the product advisor and as approved by the FDA.RAPID DRUG SCREEN, [id number] 15:16:00 Test Item Value Reference Range Comments BARBITURATE URINE (BEAKER) (test tavj=107) Negative Negative BENZODIAZEPINE SCREEN URINE (BEAKER) (test Negative Negative rrct=239) COCAINE (METAB.) SCREEN (BEAKER) (test ovjy=0961) Negative Negative METHADONE SCREEN (BEAKER) (test jvpn=0148) Negative Negative OPIATE SCREEN URINE (BEAKER) (test kypx=935) Negative Negative CANNABINOID SCREEN URINE (BEAKER) (test msbx=908) Negative Negative AMPH/METHAMPH SCREEN (BEAKER) (test txdm=3411) Negative Negative PHENCYCLIDINE SCREEN URINE (BEAKER) (test gbvd=810) Negative Negative DRUG CUTOFF CONC.Cocaine 300 ng/mL Cannabinoid 50 ng/mLBenzodiazepine 200 ng/mLBarbiturate 200 ng/ mLPhencyclidine 25 ng/mLOpiate 300 ng/mLMethadone 300 ng/mLAmphetamine/ 1000 ng/mL MethamphetamineThis assay provides an unconfirmed qualitative test result for the clinical management of patients in emergency situations. Chain of custody not maintained. Some solo-dyf-cvefxmy medications, as well as adulterants, may cause inaccurate results. Clinical correlation should be applied. A more comprehensivedrug screen or confirmation of a detected drug may be performed upon request.CREATINE KINASE (CK), TOTAL AND [id number] 15:13:00 Test Item Value Reference Range Comments CREATINE KINASE TOTAL (BEAKER) (test rlos=838) 329 U/L 25-235 CREATINE KINASE-MB (BEAKER) (test fsxg=015) 1.5 ng/mL 0.0-4.9 CREATINE KINASE-MB INDEX (BEAKER) (test oihc=490) 0.5 % CK-MB Reference Range:<5 Normal5-10 Borderline>10 AbnormalTROPONIN [id number] 15:13:00 Test Item Value Reference Range Comments TROPONIN I (BEAKER) (test vrjm=196) < ng/mL 0.00-0.15 Troponin I (TnI) levels [...] disease, and persistent tachyarrhythmia.URINALYSIS W/ REFLEX URINE [id number] 15:12:00 Test Item Value Reference Range Comments COLOR (BEAKER) (test svbi=241) Yellow CLARITY (BEAKER) (test addv=521) Clear SPECIFIC GRAVITY UA (BEAKER) (test rmjw=927) 1.010 1.001-1.035 PH UA (BEAKER) (test mrcy=058) 7.0 5.0-8.0 PROTEIN UA (BEAKER) (test tvcu=639) Negative Negative GLUCOSE UA (BEAKER) (test pifq=110) Negative Negative KETONES UA (BEAKER) (test wpdf=119) Negative Negative BILIRUBIN UA (BEAKER) (test vqlf=983) Negative Negative BLOOD UA (BEAKER) (test pfzm=863) Negative Negative NITRITE UA (BEAKER) (test haem=383) Negative Negative LEUKOCYTE ESTERASE UA (BEAKER) (test fbvw=846) Negative Negative UROBILINOGEN UA (BEAKER) (test yrhl=725) 1.0 mg/dL 0.2-1.0 BACTERIA (BEAKER) (test tigh=791) Few RBC UA-MANUAL (BEAKER) (test psoh=5270) <5 /HPF WBC UA-MANUAL (BEAKER) (test ckgi=1450) <5 /HPF SQUAMOUS EPITHELIAL MANUAL (BEAKER) (test 5-10 /HPF vqwt=0656) SOURCE(BEAKER) (test szsx=2266) B-TYPE NATRIURETIC FACTOR (BNP)2016-11-21 15:12:00 Test Item Value Reference Range Comments B-TYPE NATRIURETIC PEPTIDE (BEAKER) (test odsu=629) < pg/mL 0-100 COMPREHENSIVE METABOLIC [id number] 15:05:00 Test Item Value Reference Range Comments TOTAL PROTEIN (BEAKER) 7.5 gm/dL 6.0-8.5 (test oteh=485) ALBUMIN (BEAKER) (test 3.8 g/dL 3.5-5.0 oybl=0573) ALKALINE PHOSPHATASE 78 U/L 30-115 (BEAKER) (test bufx=606) BILIRUBIN TOTAL (BEAKER) 0.2 mg/dL 0.1-1.2 (test cptd=923) SODIUM (BEAKER) (test 141 meq/L 135-148 fibw=767) POTASSIUM (BEAKER) (test 3.8 meq/L 3.6-5.5 gufz=047) CHLORIDE (BEAKER) (test 107 meq/L 98-106 mfik=698) CO2 (BEAKER) (test 26 meq/L 20-29 fhjg=033) BLOOD UREA NITROGEN 13 mg/dL 10-26 (BEAKER) (test ouot=605) CREATININE (BEAKER) (test 0.90 mg/dL 0.50-1.20 gqfp=624) GLUCOSE RANDOM (BEAKER) 89 mg/dL 70-110 (test ufxv=691) CALCIUM (BEAKER) (test 8.8 mg/dL 8.5-10.5 nnyq=948) AST (SGOT) (BEAKER) (test 16 U/L 5-40 pgrb=123) ALT (SGPT) (BEAKER) (test 11 U/L 5-50 dsas=886) EGFR (BEAKER) (test 90 mL/min/1.73 sq m ESTIMATED GFR IS NOT irig=7505) ACCURATE CREATININE CLEARANCE IN PREDICTING GLOMERULAR FILTRATION RATE. ESTIMATED GFR IS NOT APPLICABLE FOR DIALYSIS PATIENTS. SCREEN, [id number] 15:02:00 Test Item Value Reference Range Comments TEST URINE (BEAKER) (test tpew=960) Negative
[2019-06-16] MEDS ORDERED: IBUPROFEN 200 MG TAB PO ONE (10:27)
[2019-06-16] MEDS ORDERED: IBUPROFEN 400 MG TAB ONE (10:27)
[2019-06-16] MEDS ORDERED: ONDANSETRON 4 MG (ODT) TAB ONE (10:27)
--- NOTE | 2019-06-16 11:29 | EDPHYS ---
Physician Documentation [facility] Name: Victor M Cortez Age: 34 yrs Sex: Female : 1985 Arrival Date: 06/16/2019 Time: 09:23 Bed 15 Private MD: ED Physician Prince Johansen HPI: 06/16 10:26 This 34 yrs old Black Female presents to ER via Ambulatory with complaints of snw Congestion, Chest Pain, Headache, High Blood Pressure. 10:26 Onset: The symptoms/episode began/occurred suddenly, 3 day(s) ago, and became snw persistent. Associated signs and symptoms: Pertinent positives: chest pain, congestion, cough, earache, fever, headache, nasal discharge, sore throat. It is unknown whether or not the patient has had similar symptoms in the past. It is unknown whether or not the patient has recently seen a physician. DISPLAY TRIMMER: 09:50 LMP N/A - tw2 Historical: - Allergies: 09:40 No Known Allergies; ss - PMHx: 09:40 CHF; Hypertension; Bipolar disorder; ss - PSHx: 09:40 ; ss - Immunization history:: Flu vaccine is not up to date. - Social history:: Smoking status: Patient/guardian denies using tobacco. - Ebola Screening: : Patient denies exposure to infectious person Patient denies travel to an Ebola-affected area in the 21 days before illness onset. ROS: 10:21 Eyes: Negative for injury, pain, redness, and discharge, Neck: Negative for injury, snw pain, and swelling. 10:21 Cardiovascular: Negative for chest pain, palpitations, and edema, Respiratory: Negative for shortness of breath, cough, wheezing, and pleuritic chest pain, Abdomen/GI: Negative for abdominal pain, nausea, vomiting, diarrhea, and constipation, Back: Negative for injury and pain, : Negative for injury, bleeding, discharge, and swelling, MS/Extremity: Negative for injury and deformity, Skin: Negative for injury, rash, and discoloration. 10:21 Constitutional: Positive for body aches, fatigue, malaise. 10:21 ENT: Positive for nasal discharge, sinus congestion, sore throat. 10:21 Neuro: Positive for headache. Exam: 10:21 Constitutional: This is a well developed, well nourished patient who is awake, alert, snw and in no acute distress. Head/Face: Normocephalic, atraumatic. Eyes: Pupils equal round and reactive to light, extra-ocular motions intact. Lids and lashes normal. Conjunctiva and sclera are non-icteric and not injected. Cornea within normal limits. Periorbital areas with no swelling, redness, or edema. 10:21 Neck: Trachea midline, no thyromegaly or masses palpated, and no cervical lymphadenopathy. Supple, full range of motion without nuchal rigidity, or vertebral point tenderness. No Meningismus. Chest/axilla: Normal chest wall appearance and motion. Nontender with no deformity. No lesions are appreciated. Cardiovascular: Regular rate and rhythm with a normal S1 and S2. No gallops, murmurs, or rubs. Normal PMI, no JVD. No pulse deficits. Respiratory: Lungs have equal breath sounds bilaterally, clear to auscultation and percussion. No rales, rhonchi or wheezes noted. No increased work of breathing, no retractions or nasal flaring. Abdomen/GI: Soft, non-tender, with normal bowel sounds. No distension or tympany. No guarding or rebound. No evidence of tenderness throughout. Back: No spinal tenderness. No costovertebral tenderness. Full range of motion. Skin: Warm, dry with normal turgor. Normal color with no rashes, no lesions, and no evidence of cellulitis. MS/ Extremity: Pulses equal, no cyanosis. Neurovascular intact. Full, normal range of motion. Neuro: Awake and alert, GCS 15, oriented to person, place, time, and situation. Cranial nerves II-XII grossly intact. Motor strength 5/5 in all extremities. Sensory grossly intact. Cerebellar exam normal. Normal gait. 10:21 ENT: TM's: are normal, Nose: Nasal mucosa: edematous, nasal drainage, that is moderate, and is seen coming from both nares, that is thick, Mouth: is normal, Posterior pharynx: is normal, Voice: is normal. Vital Signs: 09:40 BP 138 / 81; Pulse 81; Resp 20; Temp 97.2(TE); Pulse Ox 100% on R/A; Weight 138.35 kg; ss Height 5 ft. 4 in. (162.56 cm); Pain 6/10; 11:53 BP 118 / 90; Pulse 48; Pulse Ox 100% on R/A; tw2 09:40 Body Mass Index 52.35 (138.35 kg, 162.56 cm) ss MDM: 10:03 Patient medically screened. snw 11:33 Data reviewed: vital signs, nurses notes. Data interpreted: Pulse oximetry: on room air snw is 100 %. Interpretation: normal. Counseling: I had a detailed discussion with the patient and/or guardian regarding: the historical points, exam findings, and any diagnostic results supporting the discharge/admit diagnosis, the presence of at least one elevated blood pressure reading (>120/80) during this emergency department visit, lab results, the need for outpatient follow up, to return to the emergency department if symptoms worsen or persist or if there are any questions or concerns that arise at home. Response to treatment: There is no appreciated change of the patient's symptoms at this time. Special discussion: I have referred the patient to see his PCP for further evaluation of high blood pressure. Based on the history and exam findings, there is no indication for further emergent testing or inpatient evaluation. I discussed with the patient/guardian the need to see the primary care provider for further evaluation of the symptoms. 06/16 10:20 Order name: Flu; Complete Time: 11:03 snw 06/16 10:20 Order name: Strep; Complete Time: 10:50 snw 06/16 10:50 Order name: Throat Culture EDMS Administered Medications: 10:30 Drug: Zofran 4 mg Route: PO; tw2 11:13 Follow up: Response: No adverse reaction; Nausea is decreased tw2 10:50 Drug: Motrin 600 mg Route: PO; tw2 11:13 Follow up: Response: No adverse reaction tw2 11:47 Drug: Rocephin (cefTRIAXone) 1 grams Route: IM; Site: right gluteus; tw2 12:02 Follow up: Response: No adverse reaction tw2 Disposition: 13:51 Co-signature as Attending Physician, Prince Johansen MD. rn Disposition: 06/16/19 11:28 Discharged to Home. Impression: Chest pain, unspecified, Acute sinusitis, unspecified. - Condition is Stable. - Discharge Instructions: Hypertension, Sinusitis, Adult, Upper Respiratory Infection, Adult. - Prescriptions for Augmentin 875- 125 mg Oral Tablet - take 1 tablet by ORAL route every 12 hours for 10 days; 20 tablet. Mobic 7.5 mg Oral Tablet - take 1 tablet by ORAL route 2 times per day take with food; 20 tablet. - Medication Reconciliation Form, Thank You Letter, Antibiotic Education, Prescription Opioid Use, Work release form form. - Follow up: Emergency Department; When: As needed; Reason: Worsening of condition. Follow up: Private Physician; When: 2 - 3 days; Reason: Recheck today's complaints, Continuance of care, Re-evaluation by your physician. Signatures: Dispatcher [employer] EDOH Veronica Galvez, [employer] Prince Johansen MD MD rn MauriceShannon RN RN ss Chyna Feliciano RN RN tw2 Corrections: (The following items were deleted from the chart) 12:03 11:28 06/16/2019 11:28 Discharged to Home. Impression: Chest pain, unspecified; Acute tw2 sinusitis, unspecified. Condition is Stable. Forms are Work release form, Medication Reconciliation Form, Thank You Letter, Antibiotic Education, Prescription Opioid Use. Follow up: Emergency Department; When: As needed; Reason: Worsening of condition. Follow up: Private Physician; When: 2 - 3 days; Reason: Recheck today's complaints, Continuance of care, Re-evaluation by your physician. snw
--- NOTE | 2019-06-16 11:29 | ER ---
Nurse's Notes [facility] Name: Victor M Cortez Age: 34 yrs Sex: Female : 1985 Arrival Date: 06/16/2019 Time: 09:23 Bed 15 Private MD: Diagnosis: Chest pain, unspecified;Acute sinusitis, unspecified Presentation: 06/16 09:39 Presenting complaint: Patient states: cough, sneezing, body aches and headaches that ss began 2 days ago. Transition of care: patient was not received from another setting of care. Resp Distress? No respiratory distress is noted at this time. Onset of symptoms was June 14, 2019. Risk Assessment: Do you want to hurt yourself or someone else? Patient reports no desire to harm self or others. Initial Sepsis Screen: Does the patient meet any 2 criteria? No. Patient's initial sepsis screen is negative. Does the patient have a suspected source of infection? No. Patient's initial sepsis screen is negative. Care prior to arrival: None. 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 - Social history:: Smoking status: Patient/guardian denies using tobacco. - Ebola Screening: : Patient denies exposure to infectious person Patient denies travel to an Ebola-affected area in the 21 days before illness onset. Screenin:49 Abuse screen: Denies threats or abuse. Nutritional screening: No deficits noted. tw2 Tuberculosis screening: No symptoms or risk factors identified. Fall Risk None identified. Assessment: 09:45 General: Appears in no apparent distress. obese, Behavior is calm, cooperative, tw2 appropriate for age. Pain: Complains of pain in "Body aches and chest congestion". Neuro: Level of Consciousness is awake, alert, obeys commands, Oriented to person, place, time, situation. Cardiovascular: Heart tones S1 S2 Patient's skin is warm and dry. Respiratory: Reports cough that is non-productive, Airway is patent Respiratory effort is even, unlabored, Respiratory pattern is regular, symmetrical, Breath sounds are clear bilaterally. GI: Abdomen is round non-distended, obese, Bowel sounds present X 4 quads. : No signs and/or symptoms were reported regarding the genitourinary system. EENT: Reports nasal congestion nasal discharge. Derm: No signs and/or symptoms reported regarding the dermatologic system. Musculoskeletal: Range of motion: intact in all extremities. 11:13 Reassessment: Patient appears in no apparent distress at this time. Patient and/or tw2 family updated on plan of care and expected duration. Pain level reassessed. Patient is alert, oriented x 3, equal unlabored respirations, skin warm/dry/pink. 11:53 Reassessment: Patient appears in no apparent distress at this time. Patient and/or tw2 family updated on plan of care and expected duration. Pain level reassessed. Patient is alert, oriented x 3, equal unlabored respirations, skin warm/dry/pink. 12:02 Reassessment: Patient appears in no apparent distress at this time. Patient and/or tw2 family updated on plan of care and expected duration. Pain level reassessed. Patient is alert, oriented x 3, equal unlabored respirations, skin warm/dry/pink. Vital Signs: 09:40 BP 138 / 81; Pulse 81; Resp 20; Temp 97.2(TE); Pulse Ox 100% on R/A; Weight 138.35 kg; ss Height 5 ft. 4 in. (162.56 cm); Pain 6/10; 11:53 BP 118 / 90; Pulse 48; Pulse Ox 100% on R/A; tw2 09:40 Body Mass Index 52.35 (138.35 kg, 162.56 cm) ED Course: 09:23 Patient arrived in ED. as 09:24 [facility]C [facility] snw 09:24 Prince Johansen MD is Attending Physician. snw 09:40 Triage completed. ss 09:40 Arm band placed on right wrist. ss 09:49 Chyna Feliciano, TIARA is Primary Nurse. tw2 09:50 Bed in low position. Call light in reach. tw2 12:02 No provider procedures requiring assistance completed. IV discontinued, intact, tw2 bleeding controlled, No redness/swelling at site. Pressure dressing applied. Administered Medications: 10:30 Drug: Zofran 4 mg Route: PO; tw2 11:13 Follow up: Response: No adverse reaction; Nausea is decreased tw2 10:50 Drug: Motrin 600 mg Route: PO; tw2 11:13 Follow up: Response: No adverse reaction tw2 11:47 Drug: Rocephin (cefTRIAXone) 1 grams Route: IM; Site: right gluteus; tw2 12:02 Follow up: Response: No adverse reaction tw2 Outcome: 11:28 Discharge ordered by . carla 12:02 Discharged to home ambulatory, with significant other. tw2 12:02 Condition: stable 12:02 Discharge instructions given to patient, significant other, Instructed on discharge instructions, follow up and referral plans. medication usage, Demonstrated understanding of instructions, follow-up care, medications, Prescriptions given X 2. 12:03 Patient left the ED. tw2 Signatures: Veronica Galvez, DRILL SHARPENER-C DRILL SHARPENER-Csnw Gisel Lock Shelby, RN RN Chyna Feliciano RN RN tw2
[2019-06-16] MEDS ORDERED: CEFTRIAXONE 1000 MG/VIAL ONE (11:38)
[2019-06-16] MEDS ORDERED: WATER FOR INJ,STERILE 10 ML ONE (11:38)
[2019-06-16 12:40] VITALS: TEMP 97.2; O2SAT 100
[2019-06-16 12:41] VITALS: BP 118/90
== END 2019-06-16 12:03 | disposition home or self-care (01) ==
LOC: ER 09:21
DX: J01.90 Acute sinusitis, unspecified (principal); I10 Essential (primary) hypertension
CPT/HCPCS: 87070; 87081; 87804; 96372; 99283

== ENCOUNTER 2019-08-12 17:15 | Emergency (ER) | payer OTHER ==
--- OUTSIDE RECORDS SUMMARY | 2019-08-12 17:17 | XMS REPORT ---
:1985 [facility] Address [address] [place] [address] Care Team Providers Name Role Phone DR GIANA HODGE Unavailable Unavailable PUNEET, MS GUEVARA Rodriguez Unavailable Unavailable MERLE NICHOLS Unavailable Unavailable Payers Payer Name Policy Type Policy Number Effective Date Expiration Date Problems This patient has no known problems. Allergies, Adverse Reactions, Alerts Allergy Allergy Status Severity Reaction(s) Onset Inactive Treating Comments Name Type Date Date Clinician aspirin DA Active SC 2015-03 00:00:0 0 Medications This patient has no known medications. Encounters Start End Encounter Admission Attending Care Care Encounter Date/Time Date/Time Type Type Clinicians Facility Department ID 2018-07-08 2018-07-08 Emergency E AYESHA [facility] [id number] 17:05:00 18:50:00 GIANA 2018-07-08 2018-07-08 Emergency E [facility] [id number] 17:03:00 17:03:00 2017-09-18 2017-09-18 Emergency E PUNEET [facility] [id number] 07:05:00 08:40:00 GUEVARA 2017-02-17 2017-02-17 Emergency E AYESHA [facility] [id number] 13:04:00 13:45:00 GIANA Results Test Description Test Time Test Comments Text Results Atomic Results Result Comments - XR FOREARM 2 VIEWS RT 2019-03-03 17:02:00 Name: MARIAM CURIEL [facility] : 1985 Age/S: 33 / F [id number] Unit #: [id number] Loc: [place] [address] Phys: Lina Blair MD Acct: [id number] Dis Date: Status: REG ER PHONE #: [phone] Exam Date: 03/03/2019 1651 FAX #: Reason: right forearm and hand injury EXAMS: CPT: [id number] XR [place] [address] [place] [address] Fluoro Time: DAP (Gy m2): Air Kerma [...] nonspecific. at 1702 Reported and signed by: Iaz Granados M.D. CC: Lina Blair MD; Kirsten PLASENCIA PAGE 1 Signed Report Name: MARIAM CURIEL : 1985 Age/S: 33 / F [address] [address] Unit #: [id number] Loc: [place] [address] Phys: Lina Blair MD Acct: [id number] Dis Date: Status: REG ER PHONE #: [phone] Exam Date: 03/03/2019 1651 FAX #: Reason: right forearm and hand injury EXAMS: CPT: [id number] XR FOREARM [address] [place] [address] Fluoro Time: DAP (Gy m2): Air Kerma (mGy): <Continued> Technologist: Nayana Hodge, RT(R)(CT)(MRI) Trnscb Date/Time: 03/03/2019 (1702) NereidaANS4 Orig Print D/T: S: 03/03/2019 (1434) PAGE 2 Signed Report - XR HAND 3+V RT 2019-03-03 17:02:00 Name: MARIAM CURIEL [facility] : 1985 Age/S: 33 / F [address] [address] Unit #: [id number] Loc: [place] [address] Phys: Lina Blair MD Acct: [id number] Dis Date: Status: REG ER PHONE #: [phone] Exam Date: 03/03/2019 1651 FAX #: Reason: right forearm and hand injury EXAMS: CPT: [id number] XR HAND 3+[place] [address] Fluoro Time: DAP (Gy m2): Air Kerma [...] PAGE 1 Signed [facility] [place] [facility] 1985 Age/S: 33 / F [address] [address] Unit #: [id number] Loc: [place] [address] Phys: Lina Blair MD Acct: [id number] Dis Date: Status: REG ER PHONE #: [phone] Exam Date: 03/03/2019 1650 FAX #: Reason: right forearm and hand injury EXAMS: CPT: [id number] XR HAND 3+[place] [address] Fluoro Time: DAP (Gy m2): Air Kerma (mGy): <Continued> Technologist: Nayana Hodge, RT(R)(CT)(MRI) Trnscb Date/Time: 03/03/2019 (1702) [email or web address] Orig Print D/T: S: 03/03/2019 (1706) PAGE 2 Signed Report UR HCG QUAL 2019-03-03 16:35:00 Test Item Value Reference Range Comments UR HCG QUAL (test code=HCGQLU) NEGATIVE NEGATIVE XR CHEST 1 VIEW [id number] 18:54:47LOCATION: V20 EXAM: XR CHEST 1 VIEW PORTABLEHISTORY: [id number]: Chest pain TECHNIQUE: Frontal view ofthe chest.COMPARISON: None.FINDINGS:The study is limited due to underpenetration of the overlying soft tissues.No confluent consolidation. No evidence of pneumothorax or pleural effusion. The heart is normal in size. The mediastinal contours are unremarkable. Osseous structures are intact. IMPRESSION:Limited examination, without evidence of acute cardiopulmonary disease.COMPREHENSIVE METABOLIC [id number] 18:20:00 Test Item Value Reference Range Comments [...] ALT (test code=31A) 47 IU/L <=78 TROPONIN [id number] 18:19:00 Test Item Value Reference Range Comments [...] RBC MORPH (test code=RBCMOR) NORMAL DIRECT CHLAMYDIA [id number] 15:43:00 Test Item Value Reference Range Comments CHLAMYDIA TRACHOMATIS NOT DETECTED NOT DETECTED (test sjiq=[id number]) NEISSERIA GONORRHOEAE NOT DETECTED NOT DETECTED (test oytj=73414641) Endnote (test This test was performed using laqc=[id number]) the APTIMA COMBO2 Assay([employer]The analytical performance characteristics of thisassay, when used to test SurePath specimens havebeen determined by [employer].TEST PERFORMED AT:[facility] [id number] [place] [id number] ORO M.D. URINALYSIS WITH [id number] 08:22:00 Test Item Value Reference Range Comments [...] SPERM UR (test code=USPERM) /HPF NONE WET [id number] 08:06:00 Test Item Value Reference Range Comments Direct Exam (test code=DE1) RARE WHITE BLOOD CELLS SEEN Direct Exam (test code=DE2) FEW CLUE CELLS SEEN Direct Exam (test code=DE3) NO TRICHOMONAS SEEN Direct Exam (test code=DE4) NO YEAST SEEN CREATINE KINASE (CK), TOTAL AND [id number] 09:27:00 Test Item Value Reference Range Comments CREATINE KINASE TOTAL (BEAKER) (test ielu=927) 224 U/L 25-235 CREATINE KINASE-MB (BEAKER) (test xqnf=462) 1.0 ng/mL 0.0-4.9 CREATINE KINASE-MB INDEX (BEAKER) (test grgn=233) 0.4 % CK-MB Reference Range:<5 Normal5-10 Borderline>10 AbnormalTROPONIN [id number] 09:27:00 Test Item Value Reference Range Comments TROPONIN I (BEAKER) (test awgc=201) < ng/mL 0.00-0.15 Troponin I (TnI) levels [...] acidosis, acute neurological disease, and persistent tachyarrhythmia.TROPONIN [id number] 22:50:00 Test Item Value Reference Range Comments TROPONIN I (BEAKER) (test lpvp=120) < ng/mL 0.00-0.15 Troponin I (TnI) levels [...] and persistent tachyarrhythmia.CREATINE KINASE (CK), TOTAL AND [id number] 22:49:00 Test Item Value Reference Range Comments CREATINE KINASE TOTAL (BEAKER) (test twhr=575) 264 U/L 25-235 CREATINE KINASE-MB (BEAKER) (test vefm=179) 1.4 ng/mL 0.0-4.9 CREATINE KINASE-MB INDEX (BEAKER) (test jxik=710) 0.5 % CK-MB Reference Range:<5 Normal5-10 Borderline>10 AbnormalCBC W/PLT COUNT & AUTO [id number] 15:34:00 Test Item Value Reference Range Comments WHITE BLOOD CELL COUNT (BEAKER) (test ykgf=632) 8.8 K/ L 4.0-10.0 RED BLOOD CELL COUNT (BEAKER) (test sadr=273) 4.14 M/ L 4.00-5.00 HEMOGLOBIN (BEAKER) (test bjlv=771) 10.1 GM/DL 12.0-15.0 HEMATOCRIT (BEAKER) (test vtgm=628) 31.9 % 36.0-45.0 MEAN CORPUSCULAR VOLUME (BEAKER) (test vbke=108) 77.1 fL 82.0-99.0 MEAN CORPUSCULAR HEMOGLOBIN (BEAKER) (test 24.4 pg 27.0-33.0 bowx=545) MEAN CORPUSCULAR HEMOGLOBIN CONC (BEAKER) (test 31.6 GM/DL 32.0-36.0 ghyp=618) RED CELL DISTRIBUTION WIDTH (BEAKER) (test 17.4 % 10.3-14.2 rbyt=296) PLATELET COUNT (BEAKER) (test qcnl=012) 263 K/CU MM 150-430 MEAN PLATELET VOLUME (BEAKER) (test lahk=312) 8.5 fL 6.5-10.5 NEUTROPHILS RELATIVE PERCENT (BEAKER) (test 52 % tmet=174) LYMPHOCYTES RELATIVE PERCENT (BEAKER) (test 37 % lcmu=899) MONOCYTES RELATIVE PERCENT (BEAKER) (test 8 % jlhs=578) EOSINOPHILS RELATIVE PERCENT (BEAKER) (test 3 % khxo=723) BASOPHILS RELATIVE PERCENT (BEAKER) (test 1 % bebr=287) NEUTROPHILS ABSOLUTE COUNT (BEAKER) (test 4.50 K/ L 1.80-8.00 qqcf=775) LYMPHOCYTES ABSOLUTE COUNT (BEAKER) (test 3.30 K/ L 1.48-4.50 rgaq=068) MONOCYTES ABSOLUTE COUNT (BEAKER) (test 0.70 K/ L 0.00-1.30 gatn=730) EOSINOPHILS ABSOLUTE COUNT (BEAKER) (test 0.30 K/ L 0.00-0.50 mqqo=678) BASOPHILS ABSOLUTE COUNT (BEAKER) (test 0.00 K/ L 0.00-0.20 kzlb=587) (MANUAL DIFFERENTIAL)[id number] 15:34:00 Test Item Value Reference Range Comments NEUTROPHILS - REL (DIFF) (BEAKER) (test 48 % ybhy=7119) LYMPHOCYTES - REL (DIFF) (BEAKER) (test 43 % gpmu=4504) MONOCYTES - REL (DIFF) (BEAKER) (test ijyv=6850) 5 % EOSINOPHILS - REL (DIFF) (BEAKER) (test 2 % kdyd=8791) BANDS - REL (DIFF) (BEAKER) (test ohya=2170) 2 % 0-10 NEUTROPHILS - ABS (DIFF) (BEAKER) (test 4.22 K/ L 1.80-8.00 erfo=1935) LYMPHOCYTES - ABS (DIFF) (BEAKER) (test 3.78 K/ L 1.48-4.50 shmg=5666) MONOCYTES - ABS (DIFF) (BEAKER) (test pppc=4028) 0.44 K/ L 0.00-1.30 EOSINOPHILS - ABS (DIFF) (BEAKER) (test 0.18 K/ L 0.00-0.50 vyhv=9215) BANDS-ABS (DIFF) (BEAKER) (test srdm=0544) 0.2 K/ L 0.0-0.8 TOTAL COUNTED (BEAKER) (test mxks=2999) 100 BANDS + SEGMENTED NEUTROPHILS (BEAKER) (test 4.40 jntc=0668) WBC MORPHOLOGY (BEAKER) (test bgdo=330) Normal PLT MORPHOLOGY (BEAKER) (test xcjj=511) Normal HYPOCHROMIA (BEAKER) (test kfcx=957) 2+ moderate [id number] 15:30:00 Test Item Value Reference Range Comments D-DIMER QUANTITATIVE (BEAKER) (test oatj=353) 0.33 MG/L FEU <0.50 REGARDING D-DIMER RESULTS: The 98% NPV (Negative Predictive Value) for DVT/PE exclusion is 0.50 mg/LFEU as suggested by the clinical resource manager and as approved by the FDA.RAPID DRUG SCREEN, [id number] 15:16:00 Test Item Value Reference Range Comments BARBITURATE URINE (BEAKER) (test eijo=166) Negative Negative BENZODIAZEPINE SCREEN URINE (BEAKER) (test Negative Negative acod=857) COCAINE (METAB.) SCREEN (BEAKER) (test ikmd=9869) Negative Negative METHADONE SCREEN (BEAKER) (test ykax=3197) Negative Negative OPIATE SCREEN URINE (BEAKER) (test qdbb=487) Negative Negative CANNABINOID SCREEN URINE (BEAKER) (test tyjo=200) Negative Negative AMPH/METHAMPH SCREEN (BEAKER) (test ratg=7660) Negative Negative PHENCYCLIDINE SCREEN URINE (BEAKER) (test ccce=970) Negative Negative DRUG CUTOFF CONC.Cocaine 300 ng/mL Cannabinoid 50 ng/mLBenzodiazepine 200 ng/mLBarbiturate 200 ng/ mLPhencyclidine 25 ng/mLOpiate 300 ng/mLMethadone 300 ng/mLAmphetamine/ 1000 ng/mL MethamphetamineThis assay provides an unconfirmed qualitative test result for the clinical management of patients in emergency situations. Chain of custody not maintained. Some udvh-nmh-hoztjxd medications, as well as adulterants, may cause inaccurate results. Clinical correlation should be applied. A more comprehensivedrug screen or confirmation of a detected drug may be performed upon request.CREATINE KINASE (CK), TOTAL AND [id number] 15:13:00 Test Item Value Reference Range Comments CREATINE KINASE TOTAL (BEAKER) (test kspv=568) 329 U/L 25-235 CREATINE KINASE-MB (BEAKER) (test qgcm=657) 1.5 ng/mL 0.0-4.9 CREATINE KINASE-MB INDEX (BEAKER) (test nnmz=743) 0.5 % CK-MB Reference Range:<5 Normal5-10 Borderline>10 AbnormalTROPONIN [id number] 15:13:00 Test Item Value Reference Range Comments TROPONIN I (BEAKER) (test pngc=057) < ng/mL 0.00-0.15 Troponin I (TnI) levels [...] disease, and persistent tachyarrhythmia.URINALYSIS W/ REFLEX URINE [id number] 15:12:00 Test Item Value Reference Range Comments COLOR (BEAKER) (test tipy=182) Yellow CLARITY (BEAKER) (test pwnu=603) Clear SPECIFIC GRAVITY UA (BEAKER) (test wpul=016) 1.010 1.001-1.035 PH UA (BEAKER) (test ntcx=706) 7.0 5.0-8.0 PROTEIN UA (BEAKER) (test obfi=048) Negative Negative GLUCOSE UA (BEAKER) (test mzbw=905) Negative Negative KETONES UA (BEAKER) (test yspn=203) Negative Negative BILIRUBIN UA (BEAKER) (test oril=836) Negative Negative BLOOD UA (BEAKER) (test dmtn=787) Negative Negative NITRITE UA (BEAKER) (test yjhi=838) Negative Negative LEUKOCYTE ESTERASE UA (BEAKER) (test odhn=145) Negative Negative UROBILINOGEN UA (BEAKER) (test cyhr=830) 1.0 mg/dL 0.2-1.0 BACTERIA (BEAKER) (test iqtg=803) Few RBC UA-MANUAL (BEAKER) (test pbgs=2333) <5 /HPF WBC UA-MANUAL (BEAKER) (test iodr=2868) <5 /HPF SQUAMOUS EPITHELIAL MANUAL (BEAKER) (test 5-10 /HPF pyeg=8976) SOURCE(BEAKER) (test dihz=6230) B-TYPE NATRIURETIC FACTOR (BNP)2016-11-21 15:12:00 Test Item Value Reference Range Comments B-TYPE NATRIURETIC PEPTIDE (BEAKER) (test ixso=921) < pg/mL 0-100 COMPREHENSIVE METABOLIC [id number] 15:05:00 Test Item Value Reference Range Comments TOTAL PROTEIN (BEAKER) 7.5 gm/dL 6.0-8.5 (test phfe=434) ALBUMIN (BEAKER) (test 3.8 g/dL 3.5-5.0 iahm=5665) ALKALINE PHOSPHATASE 78 U/L 30-115 (BEAKER) (test voyt=182) BILIRUBIN TOTAL (BEAKER) 0.2 mg/dL 0.1-1.2 (test abku=201) SODIUM (BEAKER) (test 141 meq/L 135-148 vmlt=459) POTASSIUM (BEAKER) (test 3.8 meq/L 3.6-5.5 otiy=092) CHLORIDE (BEAKER) (test 107 meq/L 98-106 wyie=715) CO2 (BEAKER) (test 26 meq/L 20-29 xowm=971) BLOOD UREA NITROGEN 13 mg/dL 10-26 (BEAKER) (test iomm=997) CREATININE (BEAKER) (test 0.90 mg/dL 0.50-1.20 pcib=513) GLUCOSE RANDOM (BEAKER) 89 mg/dL 70-110 (test zjkc=506) CALCIUM (BEAKER) (test 8.8 mg/dL 8.5-10.5 nsdb=145) AST (SGOT) (BEAKER) (test 16 U/L 5-40 wkzi=202) ALT (SGPT) (BEAKER) (test 11 U/L 5-50 walr=847) EGFR (BEAKER) (test 90 mL/min/1.73 sq m ESTIMATED GFR IS NOT ybgi=2752) ACCURATE CREATININE CLEARANCE IN PREDICTING GLOMERULAR FILTRATION RATE. ESTIMATED GFR IS NOT APPLICABLE FOR DIALYSIS PATIENTS. SCREEN, [id number] 15:02:00 Test Item Value Reference Range Comments TEST URINE (BEAKER) (test zvhh=881) Negative
--- NOTE | 2019-08-12 17:53 | EDPHYS ---
Physician Documentation [facility] Name: Victor M Cortez Age: 34 yrs Sex: Female : 1985 Arrival Date: 08/12/2019 Time: 17:16 Bed 10 Private MD: ED Physician Prince Johansen HPI: 08/11 17:48 This 34 yrs old Black Female presents to ER via Ambulatory with complaints of Eye rn Problem. 17:48 The patient is experiencing burning, matting or discharge, pain, redness, tearing. rn Onset: The symptoms/episode began/occurred 1 week(s) ago. Duration: the symptoms are continuous. Aggravated by rubbing, Alleviated by nothing. Severity of symptoms: At their worst the symptoms were mild in the emergency department the symptoms are unchanged. The patient has not experienced similar symptoms in the past. Reports 1 week of eye pain and drainage, began in left eye, then involved right eye. Gage snot wear contacts and denies trauma. NO vision changes. . Historical: - Allergies: 17:29 No Known Allergies; ss - Home Meds: 17:29 None [Active]; ss - PMHx: 17:29 Bipolar disorder; CHF; Hypertension; ss - PSHx: 17:29 None; ss - Immunization history:: Adult Immunizations unknown. - Social history:: Smoking status: Patient reports the use of cigarette tobacco products, denies chronic smoking, but will smoke occasionally. - Family history:: not pertinent. - Hospitalizations: : No recent hospitalization is reported. ROS: 17:48 Constitutional: Negative for fever, chills, and weight loss, Eyes: + bilateral eye pain rn and drainage. ENT: Negative for injury, pain, and discharge, Neuro: Negative for weakness, numbness, tingling, and seizure. Exam: 17:48 Constitutional: This is a well developed, well nourished patient who is awake, alert, rn and in no acute distress. Head/Face: Normocephalic, atraumatic. Eyes: Pupils equal round and reactive to light, extra-ocular motions intact.+ mild swelling bilateral upper eyelids with mild erythema, no fluctuance, + clear ocular drainage, no foreign body identified. No periorbital erythema or tenderness. Vital Signs: 17:28 BP 126 / 94; Pulse 86; Resp 16; Temp 98.0(TE); Pulse Ox 99% on R/A; Weight 138.35 kg; ss Height 5 ft. 4 in. (162.56 cm); 17:28 Body Mass Index 52.35 (138.35 kg, 162.56 cm) ss MDM: 17:44 Patient medically screened. rn 17:48 Differential diagnosis: Data reviewed: vital signs, nurses notes, and as a result, I rn will discharge patient. Counseling: I had a detailed discussion with the patient and/or guardian regarding: the historical points, exam findings, and any diagnostic results supporting the discharge/admit diagnosis, the need for outpatient follow up, to return to the emergency department if symptoms worsen or persist or if there are any questions or concerns that arise at home. Special discussion: I discussed with the patient/guardian in detail that at this point there is no indication for admission to the hospital. It is understood, however, that if the symptoms persist or worsen the patient needs to return immediately for re-evaluation. Administered Medications: No medications were administered Disposition: 08/12/19 17:52 Discharged to Home. Impression: Conjunctivitis. - Condition is Stable. - Discharge Instructions: Chemical Conjunctivitis, Adult, Bacterial Conjunctivitis, Viral Conjunctivitis. - Prescriptions for Vigamox 0.5 % Ophthalmic Drops - instill 1 drop by OPHTHALMIC route every 8 hours for 7 days; 5 milliliter. - Medication Reconciliation Form, Thank You Letter, Antibiotic Education, Prescription Opioid Use form. - Follow up: Private Physician; When: As needed; Reason: Recheck today's complaints, Re-evaluation by your physician. - Problem is new. - Symptoms are unchanged. Signatures: Prince Johansen MD MD rn Smirch, Shelby, RN RN ss Corrections: (The following items were deleted from the chart) 18:02 17:52 08/12/2019 17:52 Discharged to Home. Impression: Conjunctivitis. Condition is ss Stable. Forms are Medication Reconciliation Form, Thank You Letter, Antibiotic Education, Prescription Opioid Use. Follow up: Private Physician; When: As needed; Reason: Recheck today's complaints, Re-evaluation by your physician. Problem is new. Symptoms are unchanged. rn
--- NOTE | 2019-08-12 17:53 | ER ---
Nurse's Notes [facility] Name: Victor M Cortez Age: 34 yrs Sex: Female : 1985 Arrival Date: 08/12/2019 Time: 17:16 Bed 10 Private MD: Diagnosis: Conjunctivitis Presentation: 08/11 17:28 Chief complaint: Patient states: pain, redness, swelling and drainage to L eye x 2 ss weeks. Coronavirus screen: The patient has NOT traveled to a country currently being monitored by the CDC within the last 14 days. Ebola Screen: Patient denies exposure to infectious person. Patient denies travel to an Ebola-affected area in the 21 days before illness onset. Initial Sepsis Screen: Does the patient meet any 2 criteria? No. Patient's initial sepsis screen is negative. Does the patient have a suspected source of infection? No. Patient's initial sepsis screen is negative. Risk Assessment: Do you want to hurt yourself or someone else? Patient reports no desire to harm self or others. 17:28 Method Of Arrival: Ambulatory ss 17:28 Acuity: ALO 5 ss Historical: - Allergies: 17:29 No Known Allergies; ss - Home Meds: 17:29 None [Active]; ss - PMHx: 17:29 Bipolar disorder; CHF; Hypertension; ss - PSHx: 17:29 None; ss - Immunization history:: Adult Immunizations unknown. - Social history:: Smoking status: Patient reports the use of cigarette tobacco products, denies chronic smoking, but will smoke occasionally. - Family history:: not pertinent. - Hospitalizations: : No recent hospitalization is reported. Screenin:30 Abuse screen: Denies threats or abuse. Denies injuries from another. Nutritional ss screening: No deficits noted. Tuberculosis screening: Never had TB. Fall Risk None identified. Assessment: 17:30 General: Appears in no apparent distress. comfortable, Behavior is calm, cooperative, ss Denies fever, feeling ill, fatigue, chills. Pain: Complains of pain in left eye Pain currently is 10 out of 10 on a pain scale. Quality of pain is described as tender. Neuro: Level of Consciousness is awake, alert, obeys commands, Oriented to person, place, time, situation. Respiratory: Respiratory effort is even, unlabored. EENT: Eyes with exudate noted from outer aspect of conjuctiva of left eye and inner aspect of conjunctiva of left eye. Derm: Skin is pink, warm \T\ dry. normal. Musculoskeletal: Swelling present in left upper eyelid. Vital Signs: 17:28 BP 126 / 94; Pulse 86; Resp 16; Temp 98.0(TE); Pulse Ox 99% on R/A; Weight 138.35 kg; ss Height 5 ft. 4 in. (162.56 cm); 17:28 Body Mass Index 52.35 (138.35 kg, 162.56 cm) ED Course: 17:16 Patient arrived in ED. rg4 17:29 Triage completed. ss 17:29 Arm band placed on right wrist. ss 17:30 Patient has correct armband on for positive identification. Bed in low position. ss 17:33 Shannon Edwards RN is Primary Nurse. 17:44 Prince Johansen MD is Attending Physician. rn 18:01 No provider procedures requiring assistance completed. Patient did not have IV access ss during this emergency room visit. Administered Medications: No medications were administered Outcome: 17:52 Discharge ordered by . rn 18:01 Discharged to home ambulatory. ss 18:01 Condition: good 18:01 Discharge instructions given to patient, family, Instructed on discharge instructions, follow up and referral plans. medication usage, Demonstrated understanding of instructions, follow-up care, medications, Prescriptions given X 1. 18:02 Patient left the ED. Signatures: Prince Johansen MD MD rn Smirch, Shelby, RN RN ss Garcia, Rubi rg4
== END 2019-08-12 18:02 | disposition home or self-care (01) ==
LOC: ER 17:15
DX: H10.9 Unspecified conjunctivitis (principal); F17.210 Nicotine dependence, cigarettes, uncomplicated
CPT/HCPCS: 99282

== ENCOUNTER 2019-08-13 12:52 | Emergency (ER) | payer OTHER ==
--- OUTSIDE RECORDS SUMMARY | 2019-08-13 12:55 | XMS REPORT ---
:1985 [facility] Address [address] [place] [address] Care Team Providers Name Role Phone DR GIANA HODGE Unavailable Unavailable UP[place], MS GUEVARA Rodriguez Unavailable Unavailable MERLE NICHOLS Unavailable Unavailable Payers Payer Name Policy Type Policy Number Effective Date Expiration Date Problems This patient has no known problems. Allergies, Adverse Reactions, Alerts Allergy Allergy Status Severity Reaction(s) Onset Inactive Treating Comments Name Type Date Date Clinician aspirin DA Active MD 2015-03 00:00:0 0 Medications This patient has no known medications. Encounters Start End Encounter Admission Attending Care Care Encounter Date/Time Date/Time Type Type Clinicians Facility Department ID 2018-07-08 2018-07-08 Emergency E AYESHA [facility] [id number] 17:05:00 18:50:00 GIANA 2018-07-08 2018-07-08 Emergency E [facility] [id number] 17:03:00 17:03:00 2017-09-18 2017-09-18 Emergency E PUNEET [facility] [id number] 07:05:00 08:40:00 GUEVARA 2017-02-17 2017-02-17 Emergency E AYESHA [facility] [id number] 13:04:00 13:45:00 GIANA Results Test Description Test Time Test Comments Text Results Atomic Results Result Comments - XR FOREARM 2 VIEWS RT 2019-03-03 17:02:00 Name: MARIAM CURIEL [facility] : 1985 Age/S: 33 / F [address] [address] [place] Unit #: [id number] Loc: [place] [address] Phys: Lina Blair MD Acct: [id number] Dis Date: Status: REG ER PHONE #: [phone] Exam Date: 03/03/2019 1651 FAX #: Reason: right forearm and hand injury EXAMS: CPT: [id number] XR FOREARM [address] [place] [address] Fluoro Time: DAP (Gy m2): Air Kerma [...] signed by: Iza Granados M.D. CC: Lina Blari MD; Kirsten PLASENCIA PAGE 1 Signed Report Name: MARIAM CURIEL : 1985 Age/S: 33 / F [address] [facility]ly [facility] Unit #: [id number] Loc: [place] [address] Phys: Lina Blair MD Acct: [id number] Dis Date: Status: REG ER PHONE #: [phone] Exam Date: 03/03/2019 1651 FAX #: Reason: right forearm and hand injury EXAMS: CPT: [id number] XR FOREARM [address] [place] [address] Fluoro Time: DAP (Gy m2): Air Kerma (mGy): <Continued> Technologist: Nayana Hodge, RT(R)(CT)(MRI) Trnscb Date/Time: 03/03/2019 (1702) NereidaANS4 Orig Print D/T: S: 03/03/2019 (2660) PAGE 2 Signed Report - XR HAND 3+V RT 2019-03-03 17:02:00 Name: MARIAM CURIEL [facility] : 1985 Age/S: 33 / F [address] [address] [place] Unit #: [id number] Loc: [place] [address] Phys: Lina Blair MD Acct: [id number] Dis Date: Status: REG ER PHONE #: [phone] Exam Date: 03/03/2019 1651 FAX #: Reason: right forearm and hand injury EXAMS: CPT: [id number] XR HAND 3+[place] [address] Fluoro Time: DAP (Gy m2): Air Kerma [...] PAGE 1 Signed Report [facility] 1985 Age/S: 33 / F [address] [facility] Unit #: [id number] Loc: [place] [address] Phys: Lina Blair MD Acct: [id number] Dis Date: Status: REG ER PHONE #: [phone] Exam Date: 03/03/2019 1654 FAX #: Reason: right forearm and hand injury EXAMS: CPT: [id number] XR HAND 3+[place] [address] Fluoro Time: DAP (Gy m2): Air Kerma (mGy): <Continued> Technologist: Nayana Hodge, RT(R)(CT)(MRI) Trnscb Date/Time: 03/03/2019 (1702) [email or web address] Orig Print D/T: S: 03/03/2019 (1706) PAGE 2 Signed Report UR HCG QUAL 2019-03-03 16:35:00 Test Item Value Reference Range Comments UR HCG QUAL (test code=HCGQLU) NEGATIVE NEGATIVE XR CHEST 1 VIEW [id number] 18:54:47LOCATION: V20 EXAM: XR CHEST 1 VIEW PORTABLEHISTORY: [id number]: Chest pain TECHNIQUE: Frontal view ofthe chest.COMPARISON: None.FINDINGS:The study is limited due to underpenetration of the overlying soft tissues.No confluent consolidation. No evidence of pneumothorax or pleural effusion. The heart is normal in size. The mediastinal contours are unremarkable. Osseous structures are intact. IMPRESSION:Limited examination, without evidence of acute cardiopulmonary disease.COMPREHENSIVE METABOLIC [id number] 18:20:00 Test Item Value Reference Range Comments [...] ALT (test code=31A) 47 IU/L <=78 TROPONIN [id number] 18:19:00 Test Item Value Reference Range Comments [...] RBC MORPH (test code=RBCMOR) NORMAL DIRECT CHLAMYDIA [id number] 15:43:00 Test Item Value Reference Range Comments CHLAMYDIA TRACHOMATIS NOT DETECTED NOT DETECTED (test bxpo=25764156) NEISSERIA GONORRHOEAE NOT DETECTED NOT DETECTED (test gkgi=19213087) Endnote (test This test was performed using vpid=[id number]) the APTIMA COMBO2 Assay([employer]The analytical performance characteristics of thisassay, when used to test SurePath specimens havebeen determined by [employer].TEST PERFORMED AT:[employer] [id number] [place] [id number] ORO M.D. URINALYSIS WITH [id number] 08:22:00 Test Item Value Reference Range Comments [...] SPERM UR (test code=USPERM) /HPF NONE WET [id number] 08:06:00 Test Item Value Reference Range Comments Direct Exam (test code=DE1) RARE WHITE BLOOD CELLS SEEN Direct Exam (test code=DE2) FEW CLUE CELLS SEEN Direct Exam (test code=DE3) NO TRICHOMONAS SEEN Direct Exam (test code=DE4) NO YEAST SEEN CREATINE KINASE (CK), TOTAL AND [id number] 09:27:00 Test Item Value Reference Range Comments CREATINE KINASE TOTAL (BEAKER) (test ipvr=364) 224 U/L 25-235 CREATINE KINASE-MB (BEAKER) (test ixgj=717) 1.0 ng/mL 0.0-4.9 CREATINE KINASE-MB INDEX (BEAKER) (test hjtd=940) 0.4 % CK-MB Reference Range:<5 Normal5-10 Borderline>10 AbnormalTROPONIN [id number] 09:27:00 Test Item Value Reference Range Comments TROPONIN I (BEAKER) (test qfql=079) < ng/mL 0.00-0.15 Troponin I (TnI) levels [...] acidosis, acute neurological disease, and persistent tachyarrhythmia.TROPONIN [id number] 22:50:00 Test Item Value Reference Range Comments TROPONIN I (BEAKER) (test nzmc=043) < ng/mL 0.00-0.15 Troponin I (TnI) levels [...] and persistent tachyarrhythmia.CREATINE KINASE (CK), TOTAL AND [id number] 22:49:00 Test Item Value Reference Range Comments CREATINE KINASE TOTAL (BEAKER) (test cibk=002) 264 U/L 25-235 CREATINE KINASE-MB (BEAKER) (test nhli=892) 1.4 ng/mL 0.0-4.9 CREATINE KINASE-MB INDEX (BEAKER) (test qzhr=259) 0.5 % CK-MB Reference Range:<5 Normal5-10 Borderline>10 AbnormalCBC W/PLT COUNT & AUTO [id number] 15:34:00 Test Item Value Reference Range Comments WHITE BLOOD CELL COUNT (BEAKER) (test ngmq=484) 8.8 K/ L 4.0-10.0 RED BLOOD CELL COUNT (BEAKER) (test fwvh=166) 4.14 M/ L 4.00-5.00 HEMOGLOBIN (BEAKER) (test mwxc=849) 10.1 GM/DL 12.0-15.0 HEMATOCRIT (BEAKER) (test vmgu=330) 31.9 % 36.0-45.0 MEAN CORPUSCULAR VOLUME (BEAKER) (test ptyy=883) 77.1 fL 82.0-99.0 MEAN CORPUSCULAR HEMOGLOBIN (BEAKER) (test 24.4 pg 27.0-33.0 zvsg=988) MEAN CORPUSCULAR HEMOGLOBIN CONC (BEAKER) (test 31.6 GM/DL 32.0-36.0 fzjn=014) RED CELL DISTRIBUTION WIDTH (BEAKER) (test 17.4 % 10.3-14.2 rlxu=805) PLATELET COUNT (BEAKER) (test xidz=536) 263 K/CU MM 150-430 MEAN PLATELET VOLUME (BEAKER) (test breg=605) 8.5 fL 6.5-10.5 NEUTROPHILS RELATIVE PERCENT (BEAKER) (test 52 % imfm=114) LYMPHOCYTES RELATIVE PERCENT (BEAKER) (test 37 % azqz=386) MONOCYTES RELATIVE PERCENT (BEAKER) (test 8 % itue=239) EOSINOPHILS RELATIVE PERCENT (BEAKER) (test 3 % ihjm=393) BASOPHILS RELATIVE PERCENT (BEAKER) (test 1 % akfl=440) NEUTROPHILS ABSOLUTE COUNT (BEAKER) (test 4.50 K/ L 1.80-8.00 rvar=278) LYMPHOCYTES ABSOLUTE COUNT (BEAKER) (test 3.30 K/ L 1.48-4.50 pzwg=086) MONOCYTES ABSOLUTE COUNT (BEAKER) (test 0.70 K/ L 0.00-1.30 dmdv=329) EOSINOPHILS ABSOLUTE COUNT (BEAKER) (test 0.30 K/ L 0.00-0.50 wsui=829) BASOPHILS ABSOLUTE COUNT (BEAKER) (test 0.00 K/ L 0.00-0.20 tlqa=080) (MANUAL DIFFERENTIAL)2016-11-21 15:34:00 Test Item Value Reference Range Comments NEUTROPHILS - REL (DIFF) (BEAKER) (test 48 % ffwc=6057) LYMPHOCYTES - REL (DIFF) (BEAKER) (test 43 % ceeq=8434) MONOCYTES - REL (DIFF) (BEAKER) (test gcmf=4860) 5 % EOSINOPHILS - REL (DIFF) (BEAKER) (test 2 % fbyc=0708) BANDS - REL (DIFF) (BEAKER) (test ikke=1191) 2 % 0-10 NEUTROPHILS - ABS (DIFF) (BEAKER) (test 4.22 K/ L 1.80-8.00 flme=3494) LYMPHOCYTES - ABS (DIFF) (BEAKER) (test 3.78 K/ L 1.48-4.50 ysft=8313) MONOCYTES - ABS (DIFF) (BEAKER) (test fjcm=5018) 0.44 K/ L 0.00-1.30 EOSINOPHILS - ABS (DIFF) (BEAKER) (test 0.18 K/ L 0.00-0.50 nwln=0190) BANDS-ABS (DIFF) (BEAKER) (test elsh=8118) 0.2 K/ L 0.0-0.8 TOTAL COUNTED (BEAKER) (test znen=7046) 100 BANDS + SEGMENTED NEUTROPHILS (BEAKER) (test 4.40 dbjq=0569) WBC MORPHOLOGY (BEAKER) (test rziu=163) Normal PLT MORPHOLOGY (BEAKER) (test hcak=864) Normal HYPOCHROMIA (BEAKER) (test mcxl=761) 2+ moderate [id number] 15:30:00 Test Item Value Reference Range Comments D-DIMER QUANTITATIVE (BEAKER) (test nwvw=728) 0.33 MG/L FEU <0.50 REGARDING D-DIMER RESULTS: The 98% NPV (Negative Predictive Value) for DVT/PE exclusion is 0.50 mg/LFEU as suggested by the chain builder loom control and as approved by the FDA.RAPID DRUG SCREEN, [id number] 15:16:00 Test Item Value Reference Range Comments BARBITURATE URINE (BEAKER) (test aymc=667) Negative Negative BENZODIAZEPINE SCREEN URINE (BEAKER) (test Negative Negative skdg=114) COCAINE (METAB.) SCREEN (BEAKER) (test adir=0394) Negative Negative METHADONE SCREEN (BEAKER) (test nsau=7014) Negative Negative OPIATE SCREEN URINE (BEAKER) (test pbky=072) Negative Negative CANNABINOID SCREEN URINE (BEAKER) (test ouiy=966) Negative Negative AMPH/METHAMPH SCREEN (BEAKER) (test rfoe=1929) Negative Negative PHENCYCLIDINE SCREEN URINE (BEAKER) (test wrtz=440) Negative Negative DRUG CUTOFF CONC.Cocaine 300 ng/mL Cannabinoid 50 ng/mLBenzodiazepine 200 ng/mLBarbiturate 200 ng/ mLPhencyclidine 25 ng/mLOpiate 300 ng/mLMethadone 300 ng/mLAmphetamine/ 1000 ng/mL MethamphetamineThis assay provides an unconfirmed qualitative test result for the clinical management of patients in emergency situations. Chain of custody not maintained. Some zxjd-rzi-lbswezy medications, as well as adulterants, may cause inaccurate results. Clinical correlation should be applied. A more comprehensivedrug screen or confirmation of a detected drug may be performed upon request.CREATINE KINASE (CK), TOTAL AND [id number] 15:13:00 Test Item Value Reference Range Comments CREATINE KINASE TOTAL (BEAKER) (test roap=966) 329 U/L 25-235 CREATINE KINASE-MB (BEAKER) (test wxwx=250) 1.5 ng/mL 0.0-4.9 CREATINE KINASE-MB INDEX (BEAKER) (test cjfp=339) 0.5 % CK-MB Reference Range:<5 Normal5-10 Borderline>10 AbnormalTROPONIN [id number] 15:13:00 Test Item Value Reference Range Comments TROPONIN I (BEAKER) (test hdzx=898) < ng/mL 0.00-0.15 Troponin I (TnI) levels [...] disease, and persistent tachyarrhythmia.URINALYSIS W/ REFLEX URINE [id number] 15:12:00 Test Item Value Reference Range Comments COLOR (BEAKER) (test jyto=529) Yellow CLARITY (BEAKER) (test mqyb=191) Clear SPECIFIC GRAVITY UA (BEAKER) (test xbbk=444) 1.010 1.001-1.035 PH UA (BEAKER) (test jtfg=739) 7.0 5.0-8.0 PROTEIN UA (BEAKER) (test cumk=113) Negative Negative GLUCOSE UA (BEAKER) (test zoxf=479) Negative Negative KETONES UA (BEAKER) (test rxly=585) Negative Negative BILIRUBIN UA (BEAKER) (test rrxl=603) Negative Negative BLOOD UA (BEAKER) (test nhjb=825) Negative Negative NITRITE UA (BEAKER) (test nsan=585) Negative Negative LEUKOCYTE ESTERASE UA (BEAKER) (test zwgc=316) Negative Negative UROBILINOGEN UA (BEAKER) (test asnh=570) 1.0 mg/dL 0.2-1.0 BACTERIA (BEAKER) (test rpcc=970) Few RBC UA-MANUAL (BEAKER) (test gcjn=6331) <5 /HPF WBC UA-MANUAL (BEAKER) (test nbim=8550) <5 /HPF SQUAMOUS EPITHELIAL MANUAL (BEAKER) (test 5-10 /HPF etpt=7382) SOURCE(BEAKER) (test ocme=4562) B-TYPE NATRIURETIC FACTOR (BNP)2016-11-21 15:12:00 Test Item Value Reference Range Comments B-TYPE NATRIURETIC PEPTIDE (BEAKER) (test ldhm=571) < pg/mL 0-100 COMPREHENSIVE METABOLIC [id number] 15:05:00 Test Item Value Reference Range Comments TOTAL PROTEIN (BEAKER) 7.5 gm/dL 6.0-8.5 (test ajbp=798) ALBUMIN (BEAKER) (test 3.8 g/dL 3.5-5.0 mlkt=0678) ALKALINE PHOSPHATASE 78 U/L 30-115 (BEAKER) (test shhs=422) BILIRUBIN TOTAL (BEAKER) 0.2 mg/dL 0.1-1.2 (test unrl=240) SODIUM (BEAKER) (test 141 meq/L 135-148 qytq=121) POTASSIUM (BEAKER) (test 3.8 meq/L 3.6-5.5 uhhq=143) CHLORIDE (BEAKER) (test 107 meq/L 98-106 wlkv=317) CO2 (BEAKER) (test 26 meq/L 20-29 pzfr=720) BLOOD UREA NITROGEN 13 mg/dL 10-26 (BEAKER) (test vghd=353) CREATININE (BEAKER) (test 0.90 mg/dL 0.50-1.20 nvvb=878) GLUCOSE RANDOM (BEAKER) 89 mg/dL 70-110 (test bhnf=016) CALCIUM (BEAKER) (test 8.8 mg/dL 8.5-10.5 vwrl=346) AST (SGOT) (BEAKER) (test 16 U/L 5-40 ifbx=573) ALT (SGPT) (BEAKER) (test 11 U/L 5-50 swkq=515) EGFR (BEAKER) (test 90 mL/min/1.73 sq m ESTIMATED GFR IS NOT iase=4734) ACCURATE CREATININE CLEARANCE IN PREDICTING GLOMERULAR FILTRATION RATE. ESTIMATED GFR IS NOT APPLICABLE FOR DIALYSIS PATIENTS. SCREEN, [id number] 15:02:00 Test Item Value Reference Range Comments TEST URINE (BEAKER) (test tlzi=116) Negative
--- NOTE | 2019-08-13 14:37 | ER ---
Nurse's Notes [facility] Name: Victor M Cortez Age: 34 yrs Sex: Female : 1985 Arrival Date: 08/13/2019 Time: 12:55 Bed 16 Private MD: Diagnosis: Abscess of eyelid Presentation: 08/12 13:31 Chief complaint: Patient states: Pt seen this morning and diagnosed with eye infection. ss Given antibiotics, but states Medicaid does not pay for that certain medication and she needs pain medication other than over the counter meds. Coronavirus screen: The patient has NOT traveled to a country currently being monitored by the [facility] within the last 14 days. Ebola Screen: Patient denies exposure to infectious person. Patient denies travel to an Ebola-affected area in the 21 days before illness onset. Initial Sepsis Screen: Does the patient meet any 2 criteria? No. Patient's initial sepsis screen is negative. Does the patient have a suspected source of infection? No. Patient's initial sepsis screen is negative. Risk Assessment: Do you want to hurt yourself or someone else? Patient reports no desire to harm self or others. 13:31 Method Of Arrival: Ambulatory ss 13:31 Acuity: ALO 5 ss Historical: - Allergies: 13:33 No Known Allergies; ss - PMHx: 13:33 Bipolar disorder; CHF; Hypertension; ss - PSHx: 13:33 None; ss - Immunization history:: Adult Immunizations unknown. - Social history:: Smoking status: Patient reports the use of cigarette tobacco products, denies chronic smoking, but will smoke occasionally. - Family history:: not pertinent. Screenin:49 Abuse screen: Denies threats or abuse. Nutritional screening: No deficits noted. tw2 Tuberculosis screening: No symptoms or risk factors identified. Fall Risk None identified. Assessment: 13:48 General: Appears in no apparent distress. obese, Behavior is cooperative, appropriate tw2 for age. Pain: Complains of pain in left eye. Neuro: Level of Consciousness is awake, alert, obeys commands, Oriented to person, place, time, situation. Cardiovascular: Patient's skin is warm and dry. Respiratory: Airway is patent Respiratory effort is even, unlabored, Respiratory pattern is regular, symmetrical. GI: No signs and/or symptoms were reported involving the gastrointestinal system. EENT: Reports pain in left eye. Derm: Skin is intact, multiple bumps noted on pts face, arms and legs that are raised Skin temperature is warm. 14:45 Reassessment: pt states " i have been taking the ibuprofen it hasnt helped man they tw2 gonna have to give me something stronger", pt educated as to the need for warm compressed and oral and topical ointment will help and to make a follow up appt with the eye dtr. pt on phone at this time states "man they are getting on my nerves with this". 14:47 Reassessment: Patient appears in no apparent distress at this time. No changes from tw2 previously documented assessment. Patient and/or family updated on plan of care and expected duration. Pain level reassessed. Patient is alert, oriented x 3, equal unlabored respirations, skin warm/dry/pink. 14:52 Reassessment: Patient appears in no apparent distress at this time. No changes from tw2 previously documented assessment. Patient and/or family updated on plan of care and expected duration. Pain level reassessed. Patient is alert, oriented x 3, equal unlabored respirations, skin warm/dry/pink. Vital Signs: 13:31 BP 136 / 85; Pulse 80; Resp 16; Temp 98.0(TE); Pulse Ox 100% on R/A; ss ED Course: 12:55 Patient arrived in ED. rg4 13:33 Triage completed. ss 13:33 Arm band placed on right wrist. ss 13:42 Bed in low position. Call light in reach. tw2 13:43 Gadiel Donahue MD is Attending Physician. tee 13:45 Chyna Feliciano RN is Primary Nurse. tw2 14:35 Robert Toro MD is Referral Physician. tee 14:46 No provider procedures requiring assistance completed. Patient did not have IV access tw2 during this emergency room visit. Administered Medications: 14:34 CANCELLED (Duplicate Order): Doxycycline 100 mg PO once tee 14:36 Drug: Tobramycin Ointment (0.3 %) 1 application Route: Ophthalmic; Site: left eye; tw2 14:36 Drug: Bactrim (160 mg-800 mg (DS) 1 tablet Route: PO; tw2 14:51 Follow up: Response: No adverse reaction tw2 14:36 Drug: Motrin 600 mg Route: PO; tw2 14:51 Follow up: Response: No adverse reaction tw2 14:36 Drug: Doxycycline 200 mg Route: PO; tw2 14:51 Follow up: Response: No adverse reaction tw2 Outcome: 14:36 Discharge ordered by MD. oliveira 14:46 Discharged to home ambulatory, with significant other. tw2 14:46 Condition: stable 14:46 Discharge instructions given to patient, significant other, Instructed on discharge instructions, follow up and referral plans. medication usage, Demonstrated understanding of instructions, follow-up care, medications, Prescriptions given X 4. 14:52 Patient left the ED. tw2 Signatures: Gadiel Donahue MD MD cha Smirch, Shelby, RN RN ss Chyna Feliciano RN RN tw2 Elly Young rg4
--- NOTE | 2019-08-13 14:38 | EDPHYS ---
Physician Documentation [facility] Name: Victor M Cortez Age: 34 yrs Sex: Female : 1985 Arrival Date: 08/13/2019 Time: 12:55 Bed 16 Private MD: ED Physician Gadiel Donahue HPI: 08/12 14:31 This 34 yrs old Black Female presents to ER via Ambulatory with complaints of Eye tee Problem. 14:31 The patient is experiencing pain, redness, The patient sustained None. Onset: The tee symptoms/episode began/occurred 2 day(s) ago. Duration: the symptoms are continuous. Aggravated by closing eye, Alleviated by blinking. Associated signs and symptoms: Pertinent positives: None. Pertinent negatives: None. Severity of symptoms: At their worst the symptoms were mild in the emergency department the symptoms are worse. Historical: - Allergies: 13:33 No Known Allergies; ss - PMHx: 13:33 Bipolar disorder; CHF; Hypertension; ss - PSHx: 13:33 None; ss - Immunization history:: Adult Immunizations unknown. - Social history:: Smoking status: Patient reports the use of cigarette tobacco products, denies chronic smoking, but will smoke occasionally. - Family history:: not pertinent. ROS: 14:31 Constitutional: Negative for fever, chills, and weight loss, ENT: Negative for injury, tee pain, and discharge, Neck: Negative for injury, pain, and swelling, Cardiovascular: Negative for chest pain, palpitations, and edema, Respiratory: Negative for shortness of breath, cough, wheezing, and pleuritic chest pain, Abdomen/GI: Negative for abdominal pain, nausea, vomiting, diarrhea, and constipation, Back: Negative for injury and pain, : Negative for injury, bleeding, discharge, and swelling, MS/Extremity: Negative for injury and deformity, Skin: Negative for injury, rash, and discoloration, Neuro: Negative for headache, weakness, numbness, tingling, and seizure, Psych: Negative for depression, anxiety, suicide ideation, homicidal ideation, and hallucinations, Allergy/Immunology: Negative for hives, rash, and allergies, Endocrine: Negative for neck swelling, polydipsia, polyuria, polyphagia, and marked weight changes, Hematologic/Lymphatic: Negative for swollen nodes, abnormal bleeding, and unusual bruising. 14:31 Eyes: Positive for pain, redness. Exam: 14:31 Constitutional: This is a well developed, well nourished patient who is awake, alert, tee and in no acute distress. Head/Face: Normocephalic, atraumatic. ENT: Nares patent. No nasal discharge, no septal abnormalities noted. Tympanic membranes are normal and external auditory canals are clear. Oropharynx with no redness, swelling, or masses, exudates, or evidence of obstruction, uvula midline. Mucous membranes moist. Neck: Trachea midline, no thyromegaly or masses palpated, and no cervical lymphadenopathy. Supple, full range of motion without nuchal rigidity, or vertebral point tenderness. No Meningismus. Chest/axilla: Normal chest wall appearance and motion. Nontender with no deformity. No lesions are appreciated. Cardiovascular: Regular rate and rhythm with a normal S1 and S2. No gallops, murmurs, or rubs. Normal PMI, no JVD. No pulse deficits. Respiratory: Lungs have equal breath sounds bilaterally, clear to auscultation and percussion. No rales, rhonchi or wheezes noted. No increased work of breathing, no retractions or nasal flaring. Abdomen/GI: Soft, non-tender, with normal bowel sounds. No distension or tympany. No guarding or rebound. No evidence of tenderness throughout. Back: No spinal tenderness. No costovertebral tenderness. Full range of motion. Skin: Warm, dry with normal turgor. Normal color with no rashes, no lesions, and no evidence of cellulitis. MS/ Extremity: Pulses equal, no cyanosis. Neurovascular intact. Full, normal range of motion. Neuro: Awake and alert, GCS 15, oriented to person, place, time, and situation. Cranial nerves II-XII grossly intact. Motor strength 5/5 in all extremities. Sensory grossly intact. Cerebellar exam normal. Normal gait. Psych: Awake, alert, with orientation to person, place and time. Behavior, mood, and affect are within normal limits. 14:31 Eyes: Lids and lashes: edema, of the left eye, erythema. Vital Signs: 13:31 BP 136 / 85; Pulse 80; Resp 16; Temp 98.0(TE); Pulse Ox 100% on R/A; ss MDM: 13:43 Patient medically screened. [facility] 14:33 Data reviewed: vital signs, nurses notes. [facility] Administered Medications: 14:34 CANCELLED (Duplicate Order): Doxycycline 100 mg PO once [facility] 14:36 Drug: Tobramycin Ointment (0.3 %) 1 application Route: Ophthalmic; Site: left eye; tw2 14:36 Drug: Bactrim (160 mg-800 mg (DS) 1 tablet Route: PO; tw2 14:51 Follow up: Response: No adverse reaction tw2 14:36 Drug: Motrin 600 mg Route: PO; tw2 14:51 Follow up: Response: No adverse reaction tw2 14:36 Drug: Doxycycline 200 mg Route: PO; tw2 14:51 Follow up: Response: No adverse reaction tw2 Disposition: 08/13/19 14:36 Discharged to Home. Impression: Abscess of eyelid. - Condition is Stable. - Discharge Instructions: Skin Abscess, Stye. - Prescriptions for Tobrex 0.3 % Ophthalmic ointment - apply 1 inch ribbon by OPHTHALMIC route 2-3 times daily; 3.5 gram. Ibuprofen 600 mg Oral Tablet - take 1 tablet by ORAL route every 6 hours As needed take with food; 20 tablet. Doxycycline Hyclate 100 mg Oral Tablet - take 1 tablet by ORAL route every 12 hours; 20 tablet. Bactrim DS 800- 160 mg Oral Tablet - take 1 tablet by ORAL route every 12 hours for 10 days; 20 tablet. - Medication Reconciliation Form, Thank You Letter, Antibiotic Education, Prescription Opioid Use form. - Follow up: Private Physician; When: 2 - 3 days; Reason: Recheck today's complaints, Continuance of care, Re-evaluation by your physician. Follow up: Robert Toro MD; When: 2 - 3 days; Reason: Recheck today's complaints, Continuance of care, Re-evaluation by your physician. - Problem is new. - Symptoms have improved. Signatures: Gadiel Donahue MD MD cha Smirch, Shelby, RN RN Chyna Nixon RN RN tw2 Corrections: (The following items were deleted from the chart) 14:34 14:31 Doxycycline 100 mg PO once ordered. [facility] 14:52 14:36 08/13/2019 14:36 Discharged to Home. Impression: Abscess of eyelid. Condition is tw2 Stable. Forms are Medication Reconciliation Form, Thank You Letter, Antibiotic Education, Prescription Opioid Use. Follow up: Private Physician; When: 2 - 3 days; Reason: Recheck today's complaints, Continuance of care, Re-evaluation by your physician. Follow up: Robert Toro; When: 2 - 3 days; Reason: Recheck today's complaints, Continuance of care, Re-evaluation by your physician. Problem is new. Symptoms have improved. tee
[2019-08-13] MEDS ORDERED: SMZ./TMP. 800/160 MG TABLET ONE (14:44)
[2019-08-13] MEDS ORDERED: TOBRAMYCIN SULF 0.3% OPTH OINT ONE (14:44)
[2019-08-13] MEDS ORDERED: DOXYCYCLINE 100 MG CAP PO ONE (14:45)
[2019-08-13] MEDS ORDERED: IBUPROFEN 200 MG TAB PO ONE (14:45)
[2019-08-13] MEDS ORDERED: IBUPROFEN 400 MG TAB ONE (14:45)
[2019-08-13 15:02] VITALS: BP 136/85; TEMP 98; O2SAT 100
== END 2019-08-13 14:52 | disposition home or self-care (01) ==
LOC: ER 12:52
DX: H00.036 Abscess of eyelid left eye, unspecified eyelid (principal); F17.210 Nicotine dependence, cigarettes, uncomplicated
CPT/HCPCS: 99283

== ENCOUNTER 2019-09-24 20:12 | Emergency (ER) | payer OTHER ==
--- OUTSIDE RECORDS SUMMARY | 2019-09-24 20:15 | XMS REPORT ---
:1985 Author Organization [facility] t Address [address] [place] [address] Care Team Providers Name Role Phone DR AYESHA Unavailable Unavailable PUNEET MS Michael Unavailable Unavailable SIMONE Unavailable Unavailable Payers Payer Name Policy Type Policy Number Effective Date Expiration D ate Problems This patient has no known problems. Allergies, Adverse Reactions, Alerts Allergy Allergy Status Severity Reaction(s) Onset Inactive Treating C omments Name Type Date Date Clinician aspirin DA Active DE 2015-03 00:00:0 0 Medications This patient has no known medications. Encounters Start End Encounter Admission Attending Care Care Encounter Date/Time Date/Time Type Type Clinicians Facility Department ID 2018-07-08 2018-07-08 Emergency E AYESHA [facility] [id number] 17:05:00 18:50:00 GIANA 2018-07-08 2018-07-08 Emergency E [facility] [id number] 84 17:03:00 17:03:00 2017-09-18 2017-09-18 Emergency E PUNEET [facility] [id number] 07:05:00 08:40:00 GUEVARA 2017-02-17 2017-02-17 Emergency E AYESHA [facility] [id number] 13:04:00 13:45:00 GIANA Results Test Description Test Time Test Comments Text Results Atomic Results Result Comments - XR FOREARM 2 VIEWS RT 2019-03-03 17:02:00 Name: MARIAM LONGORIA [facility] [place] : 1985 Age/S: 33 / F [id number] [address] [place] Unit #: [id number] Loc: [place] [address] Phys: Lina Blair Acct: [id number] Dis Date : Status: REG ER PHONE #: Exam Date: 03/03/2019 1 651 FAX #: Reason: right forearm and gabriel nd injury EXAMS: CPT: [id number] XR FOREARM 2 [place] [id number] Fluoro Time: DAP (Gy m2): Air Kerma (mGy): EXAMINATION: - XR HAND 3+V RT, - XR FOREARM 2 VIEWS RT . LOCATION: R16. HISTORY: Right forearm and h and injury. COMPAR SHAWN: None. FINDINGS / IMPRESSION: Two views of RIGHT forearm demon strates no radiographic evidence of acute osseous abnormality no radiopaque foreign body. Vi sualized left elbow joint vinh ears intact. Th ree views of RIGHT hand demonstrates n o dorsal soft tissue swelling. No radiographic evidence of acu te osseous abnormality. Articu lar spaces are well-maintained . There are lucencies involving capi celis, nonspecific. at 1 278 Reported and signed by: Keira Granados M.D. CC: Lina Blair MD; Kirsten PLASENCIA PAGE 1 Sign ed Report Name: MARIAM CURIELland : 1985 Age/S: 33 / F [id number] [address] Unit #: [id number] Loc: [place] [address] Phys: Lina Blair Acct: [id number] Dis Date : Status: REG ER PHONE #: Exam Date: 03/03/2019 1 651 FAX #: Reason: right forearm and gabriel nd injury EXAMS: CPT: [id number] XR FOREARM [address] [place] [id number] Fluoro Time: DAP (Gy m2): Air Kerma (mGy): <Continued> Technologis t: Tri Ayesha, RT(R)(CT)(MRI) Trnscb Date/Viraj e: 03/03/2019 (5644) [email or web address] Orig Print D/T: S: 03/03/2019 (1171) PAGE 2 Signed Repor t - XR HAND 3+V RT 2019-03-03 17:02:00 Name: HARPAL CURIEL [facility] : 1985 Age/S: 33 / F [address] [facility] Unit #: [id number] Loc: [place] [address] Phys: Lina Blair Acct: [id number] Dis Date : Status: REG ER PHONE #: [phone] Exam Date: 03/03/2019 1 651 FAX #: Reason: right forearm and gabriel nd injury EXAMS: CPT: [id number] XR HAND 3+[place] [id number] Fluoro Time: DAP (Gy m2): Air Ke rma (mGy): EXAMINAT ION: - XR HAND 3+V RT, - XR FOREAR M 2 VIEWS RT. LOCATION: R16. HISTORY: Right fore arm and hand injury. COMPARISON: None. FINDINGS/ IMPRESSION : Two views of RIGHT forearm demonstrates no radiographic evidence of acute osseous abn ormality no radiopaque foreign body. Visualized left elbo w joint appears intact. Three views of RIGHT hand demonstrates no dorsal soft tissue swelling. No radiog raphic evidence of acute osseous abnormality. Articular spaces are well-maintained. There are lucencies involving capi celis, nonspecific. at 1 082 Reported and signed by: Keira Granados M.D. CC: Lina Blair MD; Kirsten PLASENCIA PAGE 1 Sign ed Report Name: MARIAM CURIEL [facility] : 1985 Age/S: 33 / F [address] [facility] Unit #: [id number] Loc: [place] [address] Phys: Lina Blair Acct: [id number] Dis Date : Status: REG ER PHONE #: Exam Date: 03/03/2019 1 651 FAX #: Reason: right forearm and gabriel nd injury EXAMS: CPT: [id number] XR HAND 3+[place] [id number] Fluoro Time: DAP (Gy m2): Air Ke rma (mGy): <Continued> Technologist: Nayana Marrufo, RT(R)(CT)(MRI) Trnscb Date/Time: 03/03 (2554) t.[email or web address] Orig Print D/T: S: 019 (6035) PAGE 2 Signed Report UR HCG QUAL 2019-03-03 16:35:00 Test Item Value Reference Range Comments UR HCG QUAL (test code = HCGQLU) NEGATIVE NEGATIVE XR CHEST 1 VIEW [id number] 18:54:47LOCATION: V20 EXAM: XR CHEST 1 VIEW PORTABLEHISTORY: [id number]: Chest pain TECHNIQUE: Frontal view ofthe chest.COMPARISON: None.FINDINGS:The study is limited due to underpenetration of the overlying soft tissues.No confluent consolidation. No evidence of pneumothorax or pleural effusion. The heart is normal in size. The mediastinal contours are unremarkable. Osseous structures are intact. IMPRESSION:Limited examination, without evidence of acute cardiopulmonary disease.COMPREHENSIVE METABOLIC [id number] 18:20:00 Test Item Value Reference Range Comments GLUCOSE (test code = 06D) 85 mg/dL 75-100 SODIUM (test code = 01A) 139 mmol/L 136-145 POTASSIUM (test code = 01B) 3.6 mmol/L 3.6-5.1 CHLORIDE (test code = 04A) 105 mmol/L 98-107 CO2 (test code = 02A) 27 mmol/L 22-32 ANION GAP (test code = ANG) 10.6 mmol/L BUN (test code = 05D) 14 mg/dL 7-18 CREATININE (test code = 03E) 0.8 mg/dL 0.4-1.1 BUN/CREA (test code = BCR) 18 12-20 CALCIUM (test code = 09D) 8.3 mg/dL 8.3-9.5 BILI TOTAL (test code = 11A) 0.3 mg/dL 0.2-1.0 PROTEIN (test code = 07D) 7.9 g/dL 6.4-8.2 ALBUMIN (test code = 08D) 3.6 g/dL 3.5-4.8 GLOBULIN (test code = GLB) 4.3 g/dL 1.5-3.8 ALB/GLOB (test code = AGRR) 0.8 1.0-2.6 ALK PHOS (test code = 35A) 80 IU/L 42-121 AST (test code = 30A) 77 IU/L <=42 ALT (test code = 31A) 47 IU/L <=78 TROPONIN [id number] 18:19:00 Test Item Value Reference Range Comments TROPONIN I (test code = A84) <0.015 ng/mL 0.000-0.045 CBC (INCLUDES AUTOMATED DIFFERENTIAL)2018-07-08 18:02:00 Test Item Value Reference Range Comments WBC (test code = WBC) 9.7 10\S\3/uL 4.5-11.0 RBC (test code = RBC) 4.19 10\S\6/uL 4.30-5.70 HGB (test code = HBG) 11.0 g/dL 12.0-15.5 HCT (test code = HCT) 35.4 % 35.0-44.0 MCV (test code = MCV) 84.5 fL 81.0-99.0 MCH (test code = MCH) 26.3 pg 27.0-31.0 MCHC (test code = MCHC) 31.1 g/dL 32.0-36.0 RDW (test code = RDW) 15.9 % 11.5-14.5 PLT (test code = PLT) 237 10\S\3/uL 130-400 MPV (test code = MPV) 10.4 fL 9.4-12.4 NEUTROP # (test code = NE#) 6.9 10\S\3/uL 1.6-8.0 LYMPH # (test code = LY#) 2.0 10\S\3/uL 1.1-3.5 MONOCYTE # (test code = MO#) 0.7 10\S\3/uL 0.0-1.1 EOSINOPH # (test code = EO#) 0.1 10\S\3/uL 0.0-0.7 BASOPHIL # (test code = BA#) 0.0 10\S\3/uL 0.0-0.3 IG # (test code = IG#) 0.03 10\S\3/uL 0.00-0.06 NRBC # (test code = NRBC#) 0.00 10\S\3/uL 0.00-0.01 NEUTROPH % (test code = NE%) 70.9 % 35.0-73.0 LYMPH % (test code = LY%) 20.6 % 20.0-55.0 MONO % (test code = MO%) 7.3 % 2.5-10.0 EOSINOPH % (test code = EO%) 0.6 % 0.0-5.0 BASOPHIL % (test code = BA%) 0.3 % 0.0-2.0 IG % (test code = IG%) 0.3 % 0.0-0.8 NRBC% (test code = NRBC%) 0.0 % 0.0-0.2 MANDIFF (test code = MDIFF) NO NO RBC MORPH (test code = RBCMOR) NORMAL DIRECT CHLAMYDIA [id number] 15:43:00 Test Item Value Reference Range Comments CHLAMYDIA TRACHOMATIS NOT DETECTED NOT DETECTED (test code = 28887678) NEISSERIA GONORRHOEAE NOT DETECTED NOT DETECTED (test code = 52197462) Endnote (test code = This test w as performed using [id number]) the APTIMA COMBO 2 Assay([employer]The analytical perfo rmance characteristics of thisassay, when used to izabel t [employer] specimens havebe en determined by [employer].TEST PERFORMED AT:[facility] [employer] [address] [id number] ORO M.D. URINALYSIS WITH [id number] 08:22:00 Test Item Value Reference Range Comments COLOR (test code = COLU) YELLOW YELLOW CLARITY (test code = CLA) CLOUDY CLEAR GLUCOSE UR (test code = UA GLUCOSE) NEGATIVE NEGATIVE BILI UR (test code = BILE) NEGATIVE NEGATIVE KETONES UR (test code = DELIA) NEGATIVE NEGATIVE SP GRAVITY (test code = SPGR) 1.022 1.005-1.030 PH UR (test code = PH) 6.0 4.5-8.0 PROTEIN UR (test code = PU) NEGATIVE NEGATIVE UROBIL UR (test code = UROQ) 1.0 EU/dL 0.2-1.0 NITRITE UR (test code = NITRITE) NEGATIVE NEGATIVE BLOOD UR (test code = UA BLOOD) NEGATIVE NEGATIVE LEUK ES UR (test code = LEUK) NEGATIVE NEGATIVE WBC UR (test code = UWBC) 0 /HPF 0-5 RBC UR (test code = URBC) 0 /HPF 0-2 EPITH UR (test code = UEPC) MODERATE /LPF FEW BACTERIA UR (test code = UBACT) FEW /HPF NONE CAST UR (test code = CAST) /LPF NONE CRYSTAL UR (test code = CRYU) / LPF NONE MUCUS UR (test code = MUC) / HPF NONE AMORPH UR (test code = LORI) MANY / HPF NONE TRICH UR (test code = UTRICH) /HPF NONE YEAST UR (test code = UY) /HPF NONE SPERM UR (test code = USPERM) /HPF NONE WET [id number] 08:06:00 Test Item Value Reference Range Comments Direct Exam (test code = DE1) RARE WHITE BLOOD CELLS SEEN Direct Exam (test code = DE2) FEW CLUE CELLS SEEN Direct Exam (test code = DE3) NO TRICHOMONAS SEEN Direct Exam (test code = DE4) NO YEAST SEEN CREATINE KINASE (CK), TOTAL AND [id number] 09:27:00 Test Item Value Reference Range Comments CREATINE KINASE TOTAL (BEAKER) (test code = 380) 224 U/L 25-235 CREATINE KINASE-MB (BEAKER) (test code = 750) 1.0 ng/mL 0. 0-4.9 CREATINE KINASE-MB INDEX (BEAKER) (test code = 0.4 % 395) CK-MB Reference Range:<5 Normal5-10 Borderline>10 AbnormalTROPONIN I 2016-11-22 09:27:00 Test Item Value Reference Range Comments TROPONIN I (BEAKER) (test code = 397) < ng/mL 0.00-0.15 Troponin I (TnI) levels [...] acidosis, acute neurological disease, and persistent tachyarrhythmia.TROPONIN [id number] 22:50:00 Test Item Value Reference Range Comments TROPONIN I (BEAKER) (test code = 397) < ng/mL 0.00-0.15 Troponin I (TnI) levels [...] and persistent tachyarrhythmia.CREATINE KINASE (CK), TOTAL AND MB 2016-11-21 22:49:00 Test Item Value Reference Range Comments CREATINE KINASE TOTAL (BEAKER) (test code = 380) 264 U/L 25-235 CREATINE KINASE-MB (BEAKER) (test code = 750) 1.4 ng/mL 0. 0-4.9 CREATINE KINASE-MB INDEX (BEAKER) (test code = 0.5 % 395) CK-MB Reference Range:<5 Normal5-10 Borderline>10 AbnormalCBC W/PLT COUNT & AUTO [id number] 15:34:00 Test Item Value Reference Range Comments WHITE BLOOD CELL COUNT (BEAKER) (test code = 8.8 K/ L 4.0 -10.0 775) RED BLOOD CELL COUNT (BEAKER) (test code = 761) 4.14 M/ L 4.00-5.00 HEMOGLOBIN (BEAKER) (test code = 410) 10.1 GM/DL 12.0-15.0 HEMATOCRIT (BEAKER) (test code = 411) 31.9 % 36.0-45.0 MEAN CORPUSCULAR VOLUME (BEAKER) (test code = 77.1 fL 82 .0-99.0 753) MEAN CORPUSCULAR HEMOGLOBIN (BEAKER) (test code 24.4 pg 27.0-33.0 = 751) MEAN CORPUSCULAR HEMOGLOBIN CONC (BEAKER) (test 31.6 GM/DL 32.0-36.0 code = 752) RED CELL DISTRIBUTION WIDTH (BEAKER) (test code 17.4 % 10.3-14.2 = 412) PLATELET COUNT (BEAKER) (test code = 756) 263 K/CU MM 150-43 0 MEAN PLATELET VOLUME (BEAKER) (test code = 754) 8.5 fL 6.5-10.5 NEUTROPHILS RELATIVE PERCENT (BEAKER) (test code 52 % = 429) LYMPHOCYTES RELATIVE PERCENT (BEAKER) (test code 37 % = 430) MONOCYTES RELATIVE PERCENT (BEAKER) (test code = 8 % 431) EOSINOPHILS RELATIVE PERCENT (BEAKER) (test code 3 % = 432) BASOPHILS RELATIVE PERCENT (BEAKER) (test code = 1 % 437) NEUTROPHILS ABSOLUTE COUNT (BEAKER) (test code = 4.50 K/ L 1.80-8.00 670) LYMPHOCYTES ABSOLUTE COUNT (BEAKER) (test code = 3.30 K/ L 1.48-4.50 414) MONOCYTES ABSOLUTE COUNT (BEAKER) (test code = 0.70 K/ L 0 .00-1.30 415) EOSINOPHILS ABSOLUTE COUNT (BEAKER) (test code = 0.30 K/ L 0.00-0.50 416) BASOPHILS ABSOLUTE COUNT (BEAKER) (test code = 0.00 K/ L 0 .00-0.20 417) (MANUAL DIFFERENTIAL)2016-11-21 15:34:00 Test Item Value Reference Range Comments NEUTROPHILS - REL (DIFF) (BEAKER) (test code = 48 % 1359) LYMPHOCYTES - REL (DIFF) (BEAKER) (test code = 43 % 1360) MONOCYTES - REL (DIFF) (BEAKER) (test code = 5 % 1361) EOSINOPHILS - REL (DIFF) (BEAKER) (test code = 2 % 1362) BANDS - REL (DIFF) (BEAKER) (test code = 1348) 2 % 0 -10 NEUTROPHILS - ABS (DIFF) (BEAKER) (test code = 4.22 K/ L 1 .80-8.00 1365) LYMPHOCYTES - ABS (DIFF) (BEAKER) (test code = 3.78 K/ L 1 .48-4.50 1366) MONOCYTES - ABS (DIFF) (BEAKER) (test code = 0.44 K/ L 0.0 0-1.30 1367) EOSINOPHILS - ABS (DIFF) (BEAKER) (test code = 0.18 K/ L 0 .00-0.50 1368) BANDS-ABS (DIFF) (BEAKER) (test code = 1349) 0.2 K/ L 0.0 -0.8 TOTAL COUNTED (BEAKER) (test code = 1351) 100 BANDS + SEGMENTED NEUTROPHILS (BEAKER) (test 4.40 code = 1352) WBC MORPHOLOGY (BEAKER) (test code = 487) Normal PLT MORPHOLOGY (BEAKER) (test code = 486) Normal HYPOCHROMIA (BEAKER) (test code = 963) 2+ moderate [id number] 15:30:00 Test Item Value Reference Range Comments D-DIMER QUANTITATIVE (BEAKER) (test code = 0.33 MG/L FEU <0.50 671) REGARDING D-DIMER RESULTS: The 98% NPV (Negative Predictive Value) for DVT/PE exclusion is 0.50 mg/LFEU as suggested by the front desk lead and as approved by the FDA.RAPID DRUG SCREEN, [id number] 15:16:00 Test Item Value Reference Range Comments BARBITURATE URINE (BEAKER) (test code = 725) Negative Neg ative BENZODIAZEPINE SCREEN URINE (BEAKER) (test code = Negative Negative 726) COCAINE (METAB.) SCREEN (BEAKER) (test code = 1164) Negative Negative METHADONE SCREEN (BEAKER) (test code = 1436) Negative Neg ative OPIATE SCREEN URINE (BEAKER) (test code = 734) Negative N egative CANNABINOID SCREEN URINE (BEAKER) (test code = 727) Negative Negative AMPH/METHAMPH SCREEN (BEAKER) (test code = 1438) Negative Negative PHENCYCLIDINE SCREEN URINE (BEAKER) (test code = Negative Negative 608) DRUG CUTOFF CONC.Cocaine 300 ng/mL Cannabinoid 50 ng/mLBenzodiazepine 200 ng/mLBarbiturate 200 ng/mLPhencyclidine 25 ng/mLOpiate 300 ng/mLMethadone 300 ng/mLAmphetamine/ 1000 ng/mL MethamphetamineThis assay provides an unconfirmed qualitative test result for the clinical management of patients in emergency situations. Chain of custody not maintained. Some bfuh-wsr-hdruseg medications, as well as adulterants, may cause inaccurate results. Clinical correlation should be applied. A more comprehensivedrug screen or confirmation of a detected drug may be performed upon request.CREATINE KINASE (CK), TOTAL AND [id number] 15:13:00 Test Item Value Reference Range Comments CREATINE KINASE TOTAL (BEAKER) (test code = 380) 329 U/L 25-235 CREATINE KINASE-MB (BEAKER) (test code = 750) 1.5 ng/mL 0. 0-4.9 CREATINE KINASE-MB INDEX (BEAKER) (test code = 0.5 % 395) CK-MB Reference Range:<5 Normal5-10 Borderline>10 AbnormalTROPONIN I 2016-11-21 15:13:00 Test Item Value Reference Range Comments TROPONIN I (BEAKER) (test code = 397) < ng/mL 0.00-0.15 Troponin I (TnI) levels [...] disease, and persistent tachyarrhythmia.URINALYSIS W/ REFLEX URINE CULTURE 2016-11-21 15:12:00 Test Item Value Reference Range Comments COLOR (BEAKER) (test code = 470) Yellow CLARITY (BEAKER) (test code = 469) Clear SPECIFIC GRAVITY UA (BEAKER) (test code = 468) 1.010 1 .001-1.035 PH UA (BEAKER) (test code = 467) 7.0 5.0-8.0 PROTEIN UA (BEAKER) (test code = 464) Negative Negative GLUCOSE UA (BEAKER) (test code = 365) Negative Negative KETONES UA (BEAKER) (test code = 371) Negative Negative BILIRUBIN UA (BEAKER) (test code = 462) Negative Negative BLOOD UA (BEAKER) (test code = 461) Negative Negative NITRITE UA (BEAKER) (test code = 465) Negative Negative LEUKOCYTE ESTERASE UA (BEAKER) (test code = 466) Negative Negative UROBILINOGEN UA (BEAKER) (test code = 463) 1.0 mg/dL 0.2-1 .0 BACTERIA (BEAKER) (test code = 517) Few RBC UA-MANUAL (BEAKER) (test code = 1659) <5 /HPF WBC UA-MANUAL (BEAKER) (test code = 1661) <5 /HPF SQUAMOUS EPITHELIAL MANUAL (BEAKER) (test code = 5-10 /HPF 1663) SOURCE(BEAKER) (test code = 9860) B-TYPE NATRIURETIC FACTOR (BNP)2016-11-21 15:12:00 Test Item Value Reference Range Comments B-TYPE NATRIURETIC PEPTIDE (BEAKER) (test code = < pg/mL 0-100 700) COMPREHENSIVE METABOLIC [id number] 15:05:00 Test Item Value Reference Range Comments TOTAL PROTEIN (BEAKER) 7.5 gm/dL 6.0-8.5 (test code = 770) ALBUMIN (BEAKER) (test 3.8 g/dL 3.5-5.0 code = 1145) ALKALINE PHOSPHATASE 78 U/L 30-115 (BEAKER) (test code = 346) BILIRUBIN TOTAL (BEAKER) 0.2 mg/dL 0.1-1.2 (test code = 377) SODIUM (BEAKER) (test code 141 meq/L 135-148 = 381) POTASSIUM (BEAKER) (test 3.8 meq/L 3.6-5.5 code = 379) CHLORIDE (BEAKER) (test 107 meq/L 98-106 code = 382) CO2 (BEAKER) (test code = 26 meq/L 20-29 355) BLOOD UREA NITROGEN 13 mg/dL 10-26 (BEAKER) (test code = 354) CREATININE (BEAKER) (test 0.90 mg/dL 0.50-1.20 code = 358) GLUCOSE RANDOM (BEAKER) 89 mg/dL 70-110 (test code = 652) CALCIUM (BEAKER) (test 8.8 mg/dL 8.5-10.5 code = 697) AST (SGOT) (BEAKER) (test 16 U/L 5-40 code = 353) ALT (SGPT) (BEAKER) (test 11 U/L 5-50 code = 347) EGFR (BEAKER) (test code = 90 mL/min/1.73 sq m E STIMATED GFR IS NOT 1092) ACCURATE CREA TININE CLEARANCE IN PRE DICTING GLOMERULAR FILTR ATION RATE. ESTIMATED GFR IS NOT APPLICABLE F OR DIALYSIS PATIENT S. SCREEN, [id number] 15:02:00 Test Item Value Reference Range Comments TEST URINE (BEAKER) (test code = 583) Negative
[2019-09-24] MEDS ORDERED: NA CHLORIDE 0.9% 1,000 ML ONE (21:14)
[2019-09-24] MEDS ORDERED: MORPHINE 4 MG/ML SYR ONE (21:14)
[2019-09-24 21:44] LABS: Absolute Lymphocytes (CBC) 3.1 K/uL (0.7-4.9); Basophils % 0.6 % (0-1.3); Hematocrit 31.2 % (36.0-45.0); Lymphocytes % 37.3 % (15.3-44.8); MPV 8.9 fL (7.6-11.3)
--- NOTE | 2019-09-24 21:45 | RAD REPORT ---
EXAM DESCRIPTION: CT - Stone Protocol - 09/24/2019 9:36 pm CLINICAL HISTORY: Flank pain. FLANK PAIN COMPARISON: <Comparisons> TECHNIQUE: Axial images were obtained without oral or IV contrast. Lack of contrast limits solid org an and vascular assessment. The [id number] spans the entirety of the system partially obscuring uppermost abdomen and lung bases. Coronal reformatted images were obtained and reviewed. All CT scans are performed using dose optimization technique as appropriate and may include automated exposure control or mA/KV adjustment according to patient size. FINDINGS: The lower lung gomez are clear. Imaged portions of the liver and spleen show no suspicious findings on non-contrast imaging. The panc reas and adrenal glands are normal. No pathologic lymphadenopathy in the abdomen or pelvis. No urinary tract stones or obstructive uropathy. No bowel obstruction, free air, free fluid or abscess. Normal appendix noted. No significant bony abnormality. IMPRESSION: No urinary tract stones or obstructive uropathy.
[2019-09-24 21:56] LABS: ALT/SGPT 15 U/L (12-78); AST/SGOT 12 U/L (15-37); Albumin 2.8 g/dL (3.4-5.0); Alkaline Phosphatase 68 U/L (45-117); BUN Blood Urea Nitrogen 14 mg/dL (7-18); Bicarbonate 30 mmol/L (21-32); Bilirubin Direct < 0.1 mg/dL (0-0.2); Glucose Level 89 mg/dL (74-106); Lipase 165 U/L (73-393); Potassium 3.6 mmol/L (3.5-5.1); Protein, Total 6.8 g/dL (6.4-8.2); Sodium Level 141 mmol/L (136-145)
[2019-09-24 21:58] LABS: Bilirubin Total 0.1 mg/dL (0.2-1.0)
[2019-09-24 22:54] LABS: Urine Bacteria <20 /HPF (<20); Urine Culture Reflex Order NOT NEEDED; Urine RBC <5 /HPF (NONE SEEN)
--- NOTE | 2019-09-24 23:18 | EDPHYS ---
Physician Documentation [facility] Name: Victor M Cortez Age: 34 yrs Sex: Female : 1985 Arrival Date: 09/24/2019 Time: 20:14 Bed 13 Private MD: ED Physician Honorio Elkins HPI: 09/23 20:50 This 34 yrs old Black Female presents to ER via Ambulatory with complaints of Kidney cp Pain. 20:50 The patient complains of pain in the mid back area. The pain does not radiate. Onset: cp The symptoms/episode began/occurred 3 week(s) ago. 20:50 Associated signs and symptoms: Pertinent positives: dysuria, Pertinent negatives: cp diarrhea, fever, pain radiating to the lower extremities, vomiting. 20:50 Severity of pain: in the emergency department the pain is unchanged despite home cp interventions. 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 - Social history:: Smoking status: Patient denies any tobacco usage or history of. ROS: 21:00 Constitutional: Negative for body aches, chills, fever, poor PO intake. cp 21:00 Eyes: Negative for injury, pain, redness, and discharge. cp 21:00 ENT: Negative for drainage from ear(s), ear pain, sore throat, difficulty swallowing, difficulty handling secretions. 21:00 Cardiovascular: Negative for chest pain, palpitations. 21:00 Respiratory: Negative for cough, shortness of breath, wheezing. 21:00 Abdomen/GI: Negative for abdominal pain, nausea, vomiting, and diarrhea. 21:00 : Positive for urinary symptoms, flank pain. 21:00 Neuro: Negative for altered mental status, headache, weakness. 21:00 All other systems are negative. Exam: 21:05 Constitutional: The patient appears in no acute distress, alert, awake, non-toxic, well cp developed, well nourished, obese. 21:05 Head/Face: Normocephalic, atraumatic. cp 21:05 Eyes: Periorbital structures: appear normal, Conjunctiva: normal, no exudate, no injection, Sclera: no appreciated abnormality, Lids and lashes: appear normal, bilaterally. 21:05 ENT: External ear(s): are unremarkable, Nose: is normal, Mouth: Lips: moist, Oral mucosa: pink and intact, moist, Posterior pharynx: is normal, airway is patent, no erythema, no exudate. 21:05 Chest/axilla: Inspection: normal, Palpation: is normal, no crepitus, no tenderness. 21:05 Cardiovascular: Rate: normal, Rhythm: regular. 21:05 Respiratory: the patient does not display signs of respiratory distress, Respirations: normal, no use of accessory muscles, no retractions, labored breathing, is not present, Breath sounds: are clear throughout, no decreased breath sounds. 21:05 Abdomen/GI: Inspection: abdomen appears normal, Bowel sounds: active, all quadrants, Palpation: soft, in all quadrants, mild abdominal tenderness, in the right upper quadrant and right lower quadrant, voluntary guarding, is not appreciated, involuntary guarding, is not appreciated. 21:05 Back: pain, that is moderate, of the mid back area, ROM is painful, with all movement. 21:05 Neuro: Orientation: to person, place \T\ time. Mentation: is normal, Motor: moves all fours, strength is normal. Vital Signs: 20:33 BP 146 / 81; Pulse 77; Resp 19 S; Temp 97.6(TE); Pulse Ox 100% on R/A; Weight 129.73 kg jd3 (R); Height 5 ft. 4 in. (162.56 cm) (R); Pain 10/10; 21:00 BP 120 / 76; Pulse 74; Resp 17; Pulse Ox 99% on R/A; vc 22:00 BP 125 / 62; Pulse 72; Resp 16; Pulse Ox 100% on R/A; vc 23:00 BP 118 / 61; Pulse 74; Resp 18; Pulse Ox 100% on R/A; vc 20:33 Body Mass Index 49.09 (129.73 kg, 162.56 cm) jd3 MDM: 20:39 Patient medically screened. cp 21:00 Differential diagnosis: nephrolithiasis, pyelonephritis, UTI, diverticulitis, cp pancreatitis, cholecystitis, appendicitis. 23:16 Data reviewed: vital signs, nurses notes, lab test result(s), radiologic studies, CT cp scan. 23:16 Counseling: I had a detailed discussion with the patient and/or guardian regarding: the cp historical points, exam findings, and any diagnostic results supporting the discharge/admit diagnosis, lab results, radiology results, to return to the emergency department if symptoms worsen or persist or if there are any questions or concerns that arise at home. Response to treatment: the patient's symptoms have markedly improved after treatment, and as a result, I will discharge patient. 09/23 20:41 Order name: Basic Metabolic Panel; Complete Time: :42 cp 09/23 22:43 Interpretation: Normal except: CA 8.3. cp 09/23 20:41 Order name: CBC with Diff; Complete Time: :43 cp 09/23 22:43 Interpretation: Normal except: RBC 3.70; HGB 10.2; HCT 31.2; RDW 16.8. 09/23 20:41 Order name: Creatinine for Radiology; Complete Time: :43 cp 09/23 20:41 Order name: Hepatic Function; Complete Time: :43 cp 09/23 22:43 Interpretation: Normal except: AST 12; BILIT 0.1; ALB 2.8; GLOB 4.0; A/G 0.7. cp 09/23 20:41 Order name: Lipase; Complete Time: 22:43 cp 09/23 20:41 Order name: Urine Microscopic Only; Complete Time: 23:04 cp 09/23 23:04 Interpretation: Reviewed. 09/23 20:41 Order name: IV Saline Lock; Complete Time: 21:21 cp 09/23 20:41 Order name: Labs collected and sent; Complete Time: 21:21 cp 09/23 20:41 Order name: Urine Dipstick-Ancillary (obtain specimen); Complete Time: 21:18 cp 09/23 20:41 Order name: Urine Test (obtain specimen); Complete Time: 21:18 cp 09/23 20:41 Order name: CT Stone Protocol; Complete Time: :43 cp Administered Medications: 21:17 Drug: morphine 4 mg Route: IVP; Site: left antecubital; vc 22:02 Follow up: Response: No adverse reaction; Pain is decreased vc 21:18 Drug: NS 0.9% 1000 ml Route: IV; Rate: 1 bolus; Site: left antecubital; vc 22:46 Follow up: IV Status: Completed infusion; IV Intake: 1000ml vc Disposition: 09/24 02:18 Co-signature as Attending Physician, Honorio Elkins MD. ma2 Disposition: 09/24/19 23:17 Discharged to Home. Impression: Low back pain. - Condition is Stable. - Discharge Instructions: Back Pain, Adult, Back Exercises. - Prescriptions for Naprosyn 500 mg Oral Tablet - take 1 tablet by ORAL route 2 times per day take with food; 20 tablet. Cyclobenzaprine 10 mg Oral Tablet - take 1 tablet by ORAL route every 8 hours As needed; 20 tablet. - Medication Reconciliation Form, Thank You Letter, Antibiotic Education, Prescription Opioid Use form. - Follow up: Private Physician; When: 2 - 3 days; Reason: Recheck today's complaints. - Problem is new. - Symptoms have improved. Signatures: Dispatcher [employer] EDMS Gadiel Carrizales PA PA cp Davies, Jonathon, RN RN jd3 Honorio Elkins MD MD ma2 Mariana Brennan RN RN vc Corrections: (The following items were deleted from the chart) 09/23 22:43 22:43 Normal except. cp cp 23:44 23:17 09/24/2019 23:17 Discharged to Home. Impression: Low back pain. Condition is vc Stable. Forms are Medication Reconciliation Form, Thank You Letter, Antibiotic Education, Prescription Opioid Use. Follow up: Private Physician; When: 2 - 3 days; Reason: Recheck today's complaints. Problem is new. Symptoms have improved. cp
--- NOTE | 2019-09-24 23:18 | ER ---
Nurse's Notes [facility] Name: Victor M Cortez Age: 34 yrs Sex: Female : 1985 Arrival Date: 09/24/2019 Time: 20:14 Bed 13 Private MD: Diagnosis: Low back pain Presentation: 09/23 20:31 Chief complaint: Patient states: "My kidneys are hurting. it hurts when I pee. it hurts jd3 just all the time for like 3 weeks. I don't know if I have a UTI or STD or a kidney problem,but it is hurting and I can't take it any more.". Coronavirus screen: Proceed with normal triage. Ebola Screen: Patient negative for fever greater than or equal to 101.5 degrees Fahrenheit, and additional compatible Ebola Virus Disease symptoms. Initial Sepsis Screen: Does the patient meet any 2 criteria? No. Patient's initial sepsis screen is negative. Does the patient have a suspected source of infection? No. Patient's initial sepsis screen is negative. Risk Assessment: Do you want to hurt yourself or someone else? Patient reports no desire to harm self or others. Onset of symptoms was September 10, 2019. 20:31 Method Of Arrival: Ambulatory jd3 20:31 Acuity: ALO 3 jd3 Triage Assessment: 20:40 General: Appears in no apparent distress. uncomfortable, ill, Behavior is cooperative, vc agitated, crying. Pain: Complains of pain in left low back and right low back. 20:40 EENT: No signs and/or symptoms were reported regarding the EENT system. Neuro: Level of vc Consciousness is awake, alert, obeys commands, Oriented to person, place, time, situation. Cardiovascular: Patient's skin is warm and dry. Respiratory: Airway is patent Respiratory effort is even, unlabored, Respiratory pattern is regular, symmetrical. GI: No signs and/or symptoms were reported involving the gastrointestinal system. : Reports burning with urination, pain with urination, lower back pain. Derm: Skin temperature is warm. Musculoskeletal: Circulation, motion, and sensation intact. Range of motion: intact in all extremities. 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 - Social history:: Smoking status: Patient denies any tobacco usage or history of. Screenin:00 Abuse screen: Denies threats or abuse. Nutritional screening: No deficits noted. vc Tuberculosis screening: No symptoms or risk factors identified. Fall Risk None identified. Assessment: 20:30 Reassessment: See triage for assessment. vc 21:30 Reassessment: Patient appears in no apparent distress at this time. Patient and/or vc family updated on plan of care and expected duration. Pain level reassessed. Patient states feeling better. Patient states symptoms have improved. 22:00 Reassessment: Patient appears in no apparent distress at this time. Patient and/or vc family updated on plan of care and expected duration. Pain level reassessed. Patient states feeling better. Patient states symptoms have improved. 22:44 Reassessment: Patient appears in no apparent distress at this time. Patient and/or vc family updated on plan of care and expected duration. Pain level reassessed. Patient laying with eyes closed, chest rising and falling evenly, resting comfortably. 23:17 Reassessment: Patient appears in no apparent distress at this time. Patient and/or vc family updated on plan of care and expected duration. Pain level reassessed. Patient states feeling better. Patient states symptoms have improved. Vital Signs: 20:33 BP 146 / 81; Pulse 77; Resp 19 S; Temp 97.6(TE); Pulse Ox 100% on R/A; Weight 129.73 kg jd3 (R); Height 5 ft. 4 in. (162.56 cm) (R); Pain 10/10; 21:00 BP 120 / 76; Pulse 74; Resp 17; Pulse Ox 99% on R/A; vc 22:00 BP 125 / 62; Pulse 72; Resp 16; Pulse Ox 100% on R/A; vc 23:00 BP 118 / 61; Pulse 74; Resp 18; Pulse Ox 100% on R/A; vc 20:33 Body Mass Index 49.09 (129.73 kg, 162.56 cm) jd3 ED Course: 20:14 Patient arrived in ED. cl3 20:33 Triage completed. jd3 20:34 Arm band placed on. jd3 20:35 Gadiel Carrizales PA is PHCP. cp 20:35 Honorio Elkins MD is Attending Physician. cp 20:40 Patient has correct armband on for positive identification. Bed in low position. Side vc rails up X2. Pulse ox on. NIBP on. 20:43 Mariana Brennan, RN is Primary Nurse. vc 21:16 Inserted saline lock: 20 gauge in left antecubital area, using aseptic technique. dh4 21:35 CT Stone Protocol In Process Unspecified. EDMS 23:40 No provider procedures requiring assistance completed. IV discontinued, intact, vc bleeding controlled, No redness/swelling at site. Pressure dressing applied. Administered Medications: 21:17 Drug: morphine 4 mg Route: IVP; Site: left antecubital; vc 22:02 Follow up: Response: No adverse reaction; Pain is decreased vc 21:18 Drug: NS 0.9% 1000 ml Route: IV; Rate: 1 bolus; Site: left antecubital; vc 22:46 Follow up: IV Status: Completed infusion; IV Intake: 1000ml vc Intake: 22:46 IV: 1000ml; Total: 1000ml. vc Outcome: 23:17 Discharge ordered by MD. cp 23:40 Discharged to home via wheelchair. vc 23:40 Condition: good 23:40 Discharge instructions given to patient, Instructed on discharge instructions, follow up and referral plans. no drinking with medication, no driving heavy equipment, medication usage, Demonstrated understanding of instructions, follow-up care, medications, Prescriptions given X 2. 23:44 Patient left the ED. vc Signatures: Dispatcher [employer] EDNY Gadiel Carrizales PA PA cp Davies, Jonathon RN RN Christine Painter clMariana Choe RN RN David Valerio 4
[2019-09-25 00:16] VITALS: TEMP 97.6
[2019-09-25 00:19] VITALS: O2SAT 100
[2019-09-25 00:20] VITALS: BP 118/61
== END 2019-09-24 23:44 | disposition home or self-care (01) ==
LOC: ER 20:12
DX: M54.5 Low back pain (principal); R30.0 Dysuria; I10 Essential (primary) hypertension
CPT/HCPCS: 96361; 85025; 80048; 36415; 80076; 81015; 83690; 76377; 74176; 96374; 99284; J7030

== ENCOUNTER 2020-01-20 06:26 | Emergency (ER) | payer OTHER ==
--- OUTSIDE RECORDS SUMMARY | 2020-01-20 06:29 | XMS REPORT | Clinical Summary ---
:1985 Author Organization [facility] Address [address] [place] [address] Care Team Providers Name Role Phone Claire Granados MD Primary Care Provider Unavailable Allergies No Known Allergies Medications Medication Sig Dispensed Refills Start Date End Date Status cetirizine (ZYRTEC) 10 Take 10 mg by 0 Active MG tablet mouth daily. aspirin 81 MG EC tablet Take 81 mg by 0 Active mouth daily. ALPRAZolam (XANAX) 0.25 Take 0.25 mg by 0 Active MG tablet mouth. QUEtiapine (SEROQUEL) 50 Take 50 mg by 0 Active MG tablet mouth. carBAMazepine (TEGRETOL Take 100 mg by 0 Active XR) 100 MG 12 hr tablet mouth nightly. Active Problems Problem Noted Date Chest pain 03/16/2016 Acute angina 02/29/2016 Immunizations Name Dates Previously Given Next Due Influenza Three-TIV PF 4+YR 03/16/2016 Pneumococcal Polysaccharide (Pneumovax) 03/16/2016 Family History Medical History Relation Name Comments Heart disease Father Hypertension Father Cancer Mother Relation Name Status Comments Father Mother Social History Tobacco Use Types Packs/Day Years Used Date Former Smoker 1 Alcohol Use Drinks/Week oz/Week Comments Yes socially Sex Assigned at Date Recorded Not on file Job Start Date Occupation Industry Not on file Not on file Not on file Travel History Travel Start Travel End No recent travel history available. Last Filed Vital Signs Not on file Plan of Treatment Not on file Results Not on fileafter 01/19/2019 Insurance Payer Benefit Plan / Subscriber ID Type Phone Address Group MEDICAID - MEDICAID [facility] xxxxxxxxx Medicaid Contracted [employer] CARE PLAN Advance Directives For more information, please contact:[place] [address] [place], [place] [phone] Code Status Date Activated Date Inactivated Comments Full Code 11/21/2016 5:39 PM 11/22/2016 10:54 PM This code status was determined by: Patient Full Code 03/16/2016 10:37 AM 03/17/2016 1:07 PM This code status was determined by: Patient Full Code 02/29/2016 3:20 PM 03/01/2016 9:52 AM This code status was determined by: Patient
--- OUTSIDE RECORDS SUMMARY | 2020-01-20 06:29 | XMS REPORT | Clinical Summary ---
:1985 Author Organization [facility] Address [address] [place] [address] Care Team Providers Name Role Phone Kinsey Granados MD Primary Care Provider Allergies Active Allergy Reactions Severity Noted Date Comments Aspirin GI Intolerance 06/06/2018 Medications No known medications Active Problems Problem Noted Date UTI (urinary tract infection), uncomplicated 9 Encounters Date Type Specialty Care Team Description 01/14/2020 Emergency Emergency Medicine Ann-Marie Craig Body ache s (Primary Dx); MD Minda Nonintractable headache, unspecified chronicity pattern, unspecified headache type 01/14/2020 Travel after 01/19/2019 Social History Tobacco Use Types Packs/Day Years Used Date Former Smoker Smokeless Tobacco: Never Used Alcohol Use Drinks/Week oz/Week Comments No Sex Assigned at Date Recorded Not on file Job Start Date Occupation Industry Not on file Not on file Not on file Travel History Travel Start Travel End No recent travel history available. COVID-19 Exposure Response Date Recorded In the last month, have you been in contact with Yes 01/14/2020 10:15 PM CDT someone who was confirmed or suspected to have Coronavirus / COVID-19? Last Filed Vital Signs Vital Sign Reading Time Taken Comments Blood Pressure 127/67 01/14/2020 9:30 PM CDT Pulse 86 01/14/2020 9:26 PM CDT Temperature 36.9 C (98.4 F) 01/14/2020 8:20 PM CDT Respiratory Rate 18 01/14/2020 9:26 PM CDT Oxygen Saturation 99% 01/14/2020 9:27 PM CDT Inhaled Oxygen Concentration - - Weight 143 kg (315 lb) 01/14/2020 9:29 PM CDT Height 154.9 cm (5' 1") 01/14/2020 9:29 PM CDT Body Mass Index 59.52 01/14/2020 9:29 PM CDT Plan of Treatment Health Maintenance Due Date Last Done Comments CERVICAL CANCER SCREENING 2008 INFLUENZA VACCINE 02/04/2020 Procedures Procedure Name Priority Date/Time Associated Comments Diagnosis RESPIRATORY PATHOGEN Routine 01/14/2020 10:22 Res ults for this PANEL PM CDT procedure are i n the results section. COVID-19 QUALITATIVE STAT 01/14/2020 10:22 Res ults for this PCR PM CDT procedure are i n the results section. INFLUENZA ANTIGEN Routine 01/14/2020 10:22 Result s for this TEST, REFLEX NEGATIVE PM CDT proced ure are in TO RPP the results section. HCG QUALITATIVE, Routine 01/14/2020 9:33 Results for this URINE SCREEN PM CDT procedure are i n the results section. URINALYSIS SCREEN AND STAT 01/14/2020 9:33 Re sults for this MICROSCOPY, WITH PM CDT procedure a re in REFLEX TO CULTURE the result s section. URINE CULTURE STAT 01/14/2020 9:33 Results fo r this PM CDT procedure are i n the results section. after 01/19/2019 Results Respiratory pathogen panel (01/14/2020 10:22 PM CDT) Adenovirus PCR Not Detected [facility] Comment: [facility] Specimen Information HOSPITAL Specimen Source: Nasopharyngeal Specimen Site: Left Coronavirus HKU1 PCR Not Detected [facility] Coronavirus NL63 PCR Not Detected [facility] Coronavirus 229E PCR Not Detected [facility] Coronavirus OC43 PCR Not Detected [facility] Human metapneumovirus Not Detected [facility] Human Not Detected [place] rhinovirus/enterovirus [facility] Influenza A PCR Not Detected [facility] Influenza A/H1 PCR Not Reported [facility] Influenza A/H3 PCR Not Reported [facility] Influenza A/H1-2009 Not Reported [facility] Influenza B PCR Not Detected [facility] Parainfluenza virus 1 Not Detected [facility] Parainfluenza virus 2 Not Detected [facility] Parainfluenza virus 3 Not Detected [facility] Parainfluenza virus 4 Not Detected [facility] Respiratory syncytial Not Detected [place] virus PCR [facility] Bordetella pertussis Not Detected [place] PCR [facility] Bordetella Not Detected [facility] parapertussis PCR [facility] Chlamydia pneumoniae Not Detected [facility] Mycoplasma pneumoniae Not Detected [facility] Influenza A no sub Not Reported [place] type PCR [facility] Specimen Nasopharyngeal - Left Performing Organization Address City/[facility]/Zipcode Phone Number [facility] DEPARTMENT OF PATHOLOGY AND [address] [place] [address] [phone] [address] Influenza antigen test, reflex negative to RPP (01/14/2020 10:22 PM CDT) Influenza antigen Negative for Influenza A/B antigen. [facility] Comment: [place] Specimen Information HOSPITAL Specimen Source: Nasopharyngeal Specimen Site: Left Specimen Nasopharyngeal - Left Performing Organization Address [facility]/Zipcode Phone Number [facility] DEPARTMENT OF PATHOLOGY [address] [facility], [place] [address] AND [facility] [id number] [place] [address], X [phone] HOSPITAL COVID-19 qualitative PCR (01/14/2020 10:22 PM CDT) Interpretation Negative results do not prec lude 2019-nCoV infection and should not be used as the sole basis for treatment or other patient management decisions. Negative results must be combined with clinical observations, patient history, and epidemiological [place] information. [facility] COVID-19 qualitative Not-Detected Not-Detecte [place] PCR result d [facility] COVID-19 qualitative See link below for [place] PCR PDF Lab [facility] ReportComment: Case HOSPITAL Number: [id number] Specimen Nasopharyngeal swab Performing Organization Address City/[facility]/Zipcode Phone Number [facility] DEPARTMENT OF PATHOLOGY AND [address] [place] [address] [phone] [address] [facility] Urinalysis screen and microscopy, with reflex to culture (01/14/2020 9:33 PM CDT) Specimen site Clean catch [facility] Color, UA Yellow [facility] Appearance, UA Clear [facility] Specific gravity, UA 1.019 1.001 - 1.030 [facility] pH, UA 5.0 5.0 - 9.0 [facility] Protein, UA Negative Negative [facility] Glucose, UA Negative Negative [facility] Ketones, UA Negative Negative [facility] Bilirubin, UA Negative Negative [facility] Blood, UA Negative Negative [facility] Nitrite, UA Negative Negative [facility] Urobilinogen, UA <2.0 <2.0 E.U./dL [facility] Leukocyte esterase, Negative Negative [facility] Epithelial cells, UA 1 /HPF [facility] WBC, UA 1 0 - 4 /HPF [facility] RBC, UA 3 0 - 5 /HPF [facility] Bacteria, UA None seen None seen [facility] Yeast, UA None seen [facility] Yeast with None seen [facility] pseudohyphae, UA [facility] Specimen Urine Performing Organization Address City/State/Zipcode Phone Number [facility] DEPARTMENT OF PATHOLOGY [phone] [place] [phone] AND [facility] [phone] [place] [phone] [place] [address] hCG qualitative, urine screen (01/14/2020 9:33 PM CDT) hCG qualitative, NegativeComment: [facility] urine Sensitivity of HCG [place] test: 25 mIU/ml HOSPITAL Specimen Urine Performing Organization Address City/State/Zipcode Phone Number [facility] DEPARTMENT OF PATHOLOGY [phone] [place] [address] X [phone] AND [facility] [phone] [place] [phone] [place] [address] Urine culture (01/14/2020 9:33 PM CDT) Pathologist Sig nature Urine culture SEE COMMENTComment: [facility] Bacteriuria screen [facility] negative. Specimen Performing Organization Address City/[facility]/Zipcode Phone Number [facility] DEPARTMENT OF PATHOLOGY [phone] [place] [phone] AND GENOMIC MEDICINE [facility] [phone] [place] [address] X [phone] HOSPITAL after 01/19/2019 Advance Directives For more information, please contact: [phone] Type Date Recorded Patient Regulatory Affairs Associate Explanati on Advance Directives, Living Will and Medical Power of Metal [employer] Advance Directives, Living Will 01/14/2020 10:19 PM and Medical Power of [employer]
--- OUTSIDE RECORDS SUMMARY | 2020-01-20 06:31 | XMS REPORT | Continuity of Care Document ---
:1985 Author Organization [facility] t Address [address] [place] [address] Care Team Providers Name Role Phone Quincy Cason MD Primary Care Physician Unavailable Minda Craig MD Attending Clinician DEEPIKA Attending Clinician Unavailable LUISA Attending Clinician Unavailable SHERIDAN Attending Clinician Unavailable DR AYESHA Attending Clinician Unavailable ISSAC Attending Clinician Unavailable MS Michael TEIXEIRA Attending Clinician Unavailable SIMONE Attending Clinician Unavailable DR AYESHA Admitting Clinician Unavailable MS Michael TEIXEIRA Admitting Clinician Unavailable QUINCY CASON Admitting Clinician Unavailable Payers Payer Name Policy Type Policy Number Effective Expiration Source Date Date [facility] MEDICAIDUNITEDHC xxxxxxxxx 2019 [place] STAR+ 00:00:00 Yarsani MCDxxxxxxxx2019- PresentHMO Problems Condition Condition Condition Status Onset Resolution Last Treating Co mments Source Name Details Category Date Date Treatment Clinician Date UTI UTI Disease Active [place] (urinary (urinary 06-06 Method i tract tract 00:00: st infection) infection) 00 , , uncomplica uncomplica vilma vilma Chest pain Chest pain Disease Active 2015-[address] [facility] Acute Acute Disease Active [facility] Bipolar Bipolar Problem Active [facility] disorder disorder [facility] [place] [facility] Schizophre Schizophre Problem Active U nivers adrianne adrianne [facility] [place] [facility] Depressed Depressed Problem Active Uni vers mood mood [facility] [place] [facility] CHF CHF Problem Active Univers (congestiv (congestiv it y of e heart e heart [place] failure) failure) Physic i ans History of History of Problem Resolve Univers H/O H/O d ity of dilation dilation [place] and and Physici curettage curettage ans History of History of Problem Resolve Univers myocardial myocardial d it y of infarction infarction [place] [facility] Essential Essential Problem Active Uni vers hypertensi hypertensi it y of on on [place] [facility] ans Amenorrhea Amenorrhea Problem Active U nivers [facility] [place] [facility] Ureteral Ureteral Problem Active Unive rs stent stent ity of retained retained [place] [facility] ans Asthma, Asthma, Problem Active Univers moderate moderate [place] persistent persistent [place] [facility] Influenza Influenza Problem Active Uni vers vaccine vaccine ity of needed needed [place] Physici ans BMI BMI Problem Active Univers 50.0-59.9, 50.0-59.9, it y of adult adult [place] Physici ans Allergies, Adverse Reactions, Alerts Allergy Allergy Status Severity Reaction(s) Onset Inactive Treating Comm ents Source Name Type Date Date Clinician Aspirin Propensi Active [facility] [place] ty to Intolerance 06-06 Metho di adverse 00:00: st reaction 00 s to drug aspirin DA Active [place] 2014-06 [facility] [place] [facility] Aspirin drug Active Gatrointesti Uni vers TABS allergy nal upset [facility] [place] [facility] Family History Family Member Diagnosis Comments Start Date Stop Date Source Mother Family history of [facility] [place] diabetes mellitus Physici ans Mother Family history of [facility] [place] malignant neoplasm of Phy sicians breast Mother Family history of [facility] hypertension Physicians Father Family history of [facility] [place] malignant neoplasm of Phy sicians bone Father Family history of [facility] [place] myocardial infarction Phy sicians Natural father Heart disease [facility] Natural father Hypertension [facility] Natural mother Cancer [facility] Social History Social Habit Start Date Stop Date Quantity Comments Source Sex Assigned At [facility] ethodist Exposure to Yes [place] Metho dist SARS-CoV-2 (event) Alcohol intake 2020-01-14 2020-01-14 Current [facility] thodist 00:00:00 00:00:00 non-drinker of alcohol (finding) Cigarettes smoked 2016-11-21 2016-11-21 VIRIDIANA Manley - current (pack per 00:00:00 00:00:00 Medical Center day) - Reported Alcohol Comment 2014-04-29 2014-04-29 socially VIRIDIANA Huang kes - 00:00:00 00:00:00 Medical Center Smoking Status Start Date Stop Date Source Light tobacco smoker [facility] Former smoker 2020-01-14 00:00:00 2020-01-14 00:00:00 [place] Yarsani Medications Ordered Filled Start Stop Current Ordering Indication Dosage Frequency Signature Comments Components Source Medication Medication Date Date Medication? Clinician (SIG) Name Name ProAir HFA ProAir HFA Yes JOHNECA INHALE 1 Univers 108 (90 108 (90 2-05 DEEPIKA TO 2 PUFFS ity of Base) Base) 00:00: D.O. EVERY 4 TO [place] MCG/ACT MCG/ACT 00 6 HOURS Phy sici Inhalation Inhalation NEEDED. ans Aerosol Aerosol Solution Solution Advair HFA Advair HFA Yes JOHNECA INHALE 2 Univers 45-21 45-21 2-05 DEEPIKA PUFFS AT ity of MCG/ACT MCG/ACT 00:00: D.O. 12 HOUR [place] Inhalation Inhalation 00 INTERVALS Physici Aerosol Aerosol (MORNING ans AND EVENING). ALPRAZolam Yes .25mg Take 0.[address] (XANAX) 6-19 mg by [facility] - 0.25 MG 18:01: mouth. Medical tablet 54 Center QUEtiapine Yes 50mg Take [address] (SEROQUEL) 6-19 by mouth. Luke [facility] - 50 MG 18:01: Medical tablet 54 Center carBAMazepi Yes 100mg QD Take [address] ne 6-19 mg by [facility] - (TEGRETOL 18:01: mouth Medical XR) 100 MG 54 nightly. Cente r 12 hr tablet aspirin 81 2015-06 Yes 81mg QD Take [address] MG EC 0-12 by mouth [facility] - tablet 11:10: daily. Medical 41 Center cetirizine 2013-06 Yes 10mg QD Take [address] (ZYRTEC) 10 1-25 by mouth [facility] - MG tablet 18:52: daily. Medica l [address] [place] [address] Lisinopril Lisinopril Yes JOHNECA QD TAKE 1 Univers 5 MG Oral 5 MG Oral DEEPIKA TABLET ity of Tablet Tablet D.O. DAILY [place] DIRECTED. Physici ans Metoprolol Metoprolol Yes JOHNECA .5 Q0.5D TAKE 0.5 Univers Tartrate 25 Tartrate 25 DEEPIKA TABLET ity of MG Oral MG Oral D.O. TWICE [place] Tablet Tablet DAILY Physici ans Immunizations Ordered Immunization Filled Date Status Comments Sour ce Name Immunization Name Fluzone Quadrivalent 2018-07-10 Completed Univ ersity of 0.5 ML Intramuscular 11:38:00 [place] Suspension Prefilled Phys icians Syringe Influenza Three-TIV 2016-03-16 [facility]00 [facility] Pneumococcal 2016-03-[address] [facility] - Polysaccharide 00:00:00 Medical Ce nter (Pneumovax) Varicella Zoster IG Unknown [facility] [place] [facility] Tdap (Adacel) Unknown Completed [facility] Vital Signs Vital Name Observation Time Observation Value Comments Source Systolic blood 2020-01-14 21:30:00 127 mm[Hg] Viet n Yarsani pressure Diastolic blood 2020-01-14 21:30:00 67 mm[Hg] Zoraida on Yarsani pressure Body height 2020-01-14 21:29:00 154.9 cm French Yarsani Body weight 2020-01-14 21:29:00 142.883 kg Manolo Yarsani BMI 2020-01-14 21:29:00 59.52 kg/m2 French Yarsani Oxygen saturation in 2020-01-14 21:27:00 99 /min French Yarsani Arterial blood by Pulse oximetry Heart rate 2020-01-14 21:26:00 86 /min Manolo Yarsani Respiratory rate 2020-01-14 21:26:00 18 /min Raul farias Yarsani Body temperature 2020-01-14 20:20:52 36.89 Kiki Raul farias Yarsani BP Systolic 2018-07-10 09:50:00 114 mm[Hg] Universi ty [facility] Physician s BP Diastolic 2018-07-10 09:50:00 75 mm[Hg] [facility] ty [facility] Physician s Height 2018-07-10 09:50:00 64 [in_us] [facility] [place] [facility] Weight 2018-07-10 09:50:00 295 [lb_av] [facility] [place] [facility] Body Mass Index 2018-07-10 09:50:00 50.64 kg/m2 Unive rsity of Calculated [place] Physician s Temperature 2018-07-10 09:50:00 98.2 [degF] [facility] [place] [facility] Heart Rate 2018-07-10 09:50:00 72 /min [facility] [place] [facility] Respiration Rate 2018-07-10 09:50:00 18 /min Univ ersity of [place] Physician s O2 SAT 2018-07-10 09:50:00 95 % [facility] [place] [facility] BP Systolic 2018-07-05 11:55:00 107 mm[Hg] [facility] [place] [facility] BP Diastolic 2018-07-05 11:55:00 68 mm[Hg] [facility] [place] [facility] BP Systolic 2018-07-05 11:54:00 111 mm[Hg] [facility] [place] [facility] BP Diastolic 2018-07-05 11:54:00 73 mm[Hg] [facility] [place] [facility] Height 2018-07-05 11:54:00 64 [in_us] [facility] [place] [facility] Weight 2018-07-05 11:54:00 198.6 [lb_av] Univers [facility] [place] [facility] Body Mass Index 2018-07-05 11:54:00 34.09 kg/m2 Unive rsity of Calculated [place] Physician s Temperature 2018-07-05 11:54:00 97.7 [degF] [facility] [place] [facility] Heart Rate 2018-07-05 11:54:00 65 /min [facility] [place] [facility] s Respiration Rate 2018-07-05 11:54:00 16 /min Univ ersity of [place] Physician s O2 SAT 2018-07-05 11:54:00 100 % [facility] [place] Phys[facility] s Procedures Procedure Date / Time Performing Clinician Source Performed INFLUENZA ANTIGEN TEST, 2020-01-14 22:22:00 Cooper You REFLEX NEGATIVE TO RPP COVID-19 QUALITATIVE 2020-01-14 22:22:00 Cooper You Yarsani PCR RESPIRATORY PATHOGEN 2020-01-14 22:22:00 Cooper You ton Yarsani PANEL URINE CULTURE 2020-01-14 21:33:00 Ann-Marie Craig Meth odist Minda URINALYSIS SCREEN AND 2020-01-14 21:33:00 Ann[place]Marie Craig [place] Y[facility] MICROSCOPY, WITH REFLEX Minda TO CULTURE HCG QUALITATIVE, URINE 2020-01-14 21:33:00 Cooper You [place] Yarsani SCREEN [O] Urine 2018-07-10 00:00:00 [facility] Test (in office) Physicians History of [facility] [place] section Physicians History of Dilation And [facility] Curettage Physicians Plan of Care Planned Activity Planned Date Details Comments Source Future Scheduled 2020-02-04 INFLUENZA VACCINE [place] [facility] Test 00:00:00 [code = INFLUENZA VACCINE] Future Scheduled 2008 Screening for [facility] thodist Test 00:00:00 malignant neoplasm of cervix (procedure) [code = 506657344] Encounters Start End Encounter Admission Attending Care Care Encounter Source Date/Time Date/Time Type Type Clinicians Facility Department ID 2020-01-14 2020-01-[address] [facility] [id number] [place] 00:00:00 00:00:00 ANN-MARIE [address] 2018-10-08 2018-10-08 EMILY Goncalves [facility] [id number] Univers 10:30:00 10:30:00 t; biju VILLANUEVA D.O. [place] Palmira VILLNAUEVA D.O. ans 2018-08-10 2018-08-10 EMILY Hahn [id number] Univers 14:20:00 14:20:00 t; EDUARDO MORAN ity o f MARTHA, M.D. [place] M.D. Physici ans 2018-07-24 2018-07-24 EMILY Santiago [id number] Univers 11:30:00 11:30:00 t; Courtney CARDONA M.D. [place] Carrillo CARDONA M.D. ans 2018-07-10 2018-07-10 EMILY Goncalves [place] [id number] Univers 09:45:00 09:45:00 t; RICH Health and it y of Tasha POE [facility] Tasha Lund [facility] 2018-07-08 2018-07-08 [facility] [id number] [place] 17:05:00 [facility] 2018-07-08 2018-07-08 Emergency E [facility] [id number] [place] 17:03:00 17:03:00 [facility] 2018-07-05 2018-07-05 Appointmen ISS[facility] [id number] Univers 11:30:00 11:30:00 t; DOROTHY DAVENPORT NP Health and ity of YANETH DE LA CRUZ Wellness [facility] Physici Lund ans 2017-09-18 2017-09-18 Emergency [facility] [id number] [place] 07:05:00 08:40:00 [facility] 2017-02-17 2017-02-17 [id number] [place] 13:04:00 13:45:00 [facility] Results Test Description Test Time Test Comments Results Result Comments Source COVID-19 qualitative PCR 2020-01-15 05:06:14 Test Item Value Reference Range Interpretation Comme nts Interpretation (test code = Negative results do not 2613903) preclude 2019-nCoV infection and should not be used as the sole basis for treatment or other patient management decisions. Negative results must be combined with clinical observations, patient history, and epidemiological information. COVID-19 qualitative PCR Not-Detected Not-Detected result (test code = 92328-2) COVID-19 qualitative PCR See link below for PDF Lab Case Number: (test code = 7070) Report [id number] [facility] [id number] 03:44:39 Test Item Value Reference Interpretation Comments Range Adenovirus PCR Not Detected Specimen (test code = 7092) Informati onSpecimen Source: NasopharyngealS pecimen Site: Left Coronavirus HKU1 Not Detected PCR (test code = 7093) Coronavirus NL63 Not Detected PCR (test code = 7094) Coronavirus 229E Not Detected PCR (test code = 7095) Coronavirus OC43 Not Detected PCR (test code = 7096) Human Not Detected metapneumovirus PCR (test code = 7097) Human Not Detected rhinovirus/enterovi davon PCR (test code = 7098) Influenza A PCR Not Detected (test code = 7099) Influenza A/H1 PCR Not Reported (test code = 7100) Influenza A/H3 PCR Not Reported (test code = 7102) Influenza A/H1-2009 Not Reported PCR (test code = 7101) Influenza B PCR Not Detected (test code = 7104) Parainfluenza virus Not Detected 1 PCR (test code = 7105) Parainfluenza virus Not Detected 2 PCR (test code = 7106) Parainfluenza virus Not Detected 3 PCR (test code = 7107) Parainfluenza virus Not Detected 4 PCR (test code = 7108) Respiratory Not Detected syncytial virus PCR (test code = 7109) Bordetella Not Detected pertussis PCR (test code = 2506188) Bordetella Not Detected parapertussis PCR (test code = 1764562) Chlamydia Not Detected pneumoniae PCR (test code = 3753) Mycoplasma Not Detected pneumoniae PCR (test code = 7110) Influenza A no sub Not Reported type PCR (test code = 7127) [place] MethodistInfluenza antigen test, reflex negative to [id number] 22:58:26 Test Item Value Reference Interpretation Comments Range Influenza Negative for Specimen antigen (test Influenza A/B InformationSSM DePaul Health Centerimen Source: code = 77094-0) antigen. Nasopharynge alSpecimen Site: Left [place] MethodisthCG qualitative, urine [id number] 21:55:19 Test Item Value Reference Range Interpretation Comments hCG qualitative, Negative Sensitivity of HCG test: urine (test code = 25 mIU/ml 6-3) [place] MethodistUrine [id number] 21:45:50 Test Item Value Reference Range Interpretation Comments Urine culture (test SEE COMMENT Bacteriu nate screen code = 1119006) negative. [place] MethodistUrinalysis screen and microscopy, with reflex to culture 2020-01-14 21:45:49 Test Item Value Reference Range Interpretation Comments Specimen site (test code = Clean catch 4433885) Color, UA (test code = 5778-6) Yellow Appearance, UA (test code = Clear 5767-9) Specific gravity, UA (test code = 1.019 1.001-1.030 5811-5) pH, UA (test code = 5803-2) 5.0 5.0-9.0 Protein, UA (test code = 20992-9) Negative Negative Glucose, UA (test code = 28456-9) Negative Negative Ketones, UA (test code = 2514-8) Negative Negative Bilirubin, UA (test code = Negative Negative 5770-3) Blood, UA (test code = 5794-3) Negative Negative Nitrite, UA (test code = 5802-4) Negative Negative Urobilinogen, UA (test code = <2.0 <2.0 E.U./dL 29214-5) Leukocyte esterase, UA (test code Negative Negative = 5799-2) Epithelial cells, UA (test code = 1 /HPF 5787-7) WBC, UA (test code = 5821-4) 1 0- 4 /HPF RBC, UA (test code = 84106-6) 3 0- 5 /HPF Bacteria, UA (test code = None seen None seen 08978-9) Yeast, UA (test code = 03531-7) None seen Yeast with pseudohyphae, UA (test None seen code = 27735-0) [place] Yarsani- XR FOREARM 2 VIEWS [id number] 17:02:00 Name: MARIAM CURIEL [facility] : 1985 Age/S: 33 / F [address] Unit #: [id number] Loc: [place] [address] Phys: Lina Blair MD Acct: [id number] Dis Date: Status: REG ER PHONE #: [phone] Exam Date: 03/03/2019 1659 FAX #: Reason: right forearm and hand injury EXAMS: CPT: [id number] XR [place] [address] [place] [address] Fluoro Time: DAP (Gy m2): Air Kerma (mGy): EXAMINATION: - XR HAND 3+V RT, - XR FOREARM2 VIEWS RT. LOCATION: R16. HISTORY: Right forearm and hand injury. COMPARISON: None. FINDINGS/ IMPRESSION: Two views ofRIGHT forearm demonstrates no radiographic evidence of acute osseous abnormality no radiopaque foreign body. Visualized left elbow joint appears intact. Three views of RIGHT hand demonstrates no dorsal soft tissue swelling. No radiographic evidence of acute o sseous abnormality. Articular spaces are well-maintained. There are lucencies involving capitate, nonspecific. at 1702 Reported and signed by: Iza Cason M.D. CC: Lina Blair MD; Kirsten PLASENCIA PAGE 1 Signed Report Name: [facility] [place] : 1985 Age/S: 33 / F [address] Unit #: [id number] Loc: [place] [address] Phys: Lina Blair MD Acct: [id number] Dis Date: Status: REG ER PHONE #: [phone] Exam Date: 03/03/2019 165 FAX #: Reason: right forearm and hand injury EXAMS: CPT: [id number] XR [place] [address] [place] [address] Fluoro Time: DAP (Gy m2): Air Kerma (mGy): <Continued> Technologist: Nayana Marrufo RT(R)(CT)(MRI) Trnscb Date/Time: 03/03/2019 (1702) t.[email or web address].[email or web address] Orig Print D/T: S: 03/03/2019 (1706) PAGE 2 Signed Report- XR HAND 3+V [id number] 17:02:00 Name: MARIAM CURIEL [place] : 1985 Age/S: 33 / F [address] Unit #: [id number] Loc: [place] [address] Phys: Lina Blair MD Acct: [id number] Dis Date: Status: REG ER PHONE #: [phone] Exam Date: 03/03/2019 165 FAX #: Reason: right forearm and hand injury EXAMS: CPT: [id number] XR HAND 3+[place] [address] Fluoro Time: DAP (Gy m2): Air Kerma (mGy): EXAMINATION: - XR HAND 3+V RT, - XR FOREARM2 VIEWS RT. LOCATION: R16. HISTORY: Right forearm and hand injury. COMPARISON: None. FINDINGS/ IMPRESSION: Two views ofRIGHT forearm demonstrates no radiographic evidence of acute osseous abnormality no radiopaque foreign body. Visualized left elbow joint appears intact. Three views of RIGHT hand demonstrates no dorsal soft tissue swelling. No radiographic evidence of acute osseous abnormality. Articular spaces are well-maintained. There are lucencies involving capitate, nonspecific. at 1702 Reported and signed by: Iza Cason M.D. CC: Lina Blair MD; Kirsten PLASENCIA PAGE 1 Signed Report Name: MARIAM CURIEL [facility] [place] : 1985 Age/S: 33 / F [address] Unit #: [id number] Loc: [place] [address] Phys: Lina Blair MD Acct: [id number] Dis Date: Status: REG ER PHONE #: [phone] Exam Date: 03/03/2019 1654 FAX #: Reason: right forearm and hand injury EXAMS: CPT: [id number] XR HAND 3+VRT 30701 Fluoro Time: DAP (Gy m2): Air Kerma (mGy): <Continued> Technologist: Nayana Marrufo RT(R)(CT)(MRI) Trnscb Date/Time: 03/03/2019 (1702) [email or web address] Orig Print D/T: S: 03/03/2019 (1706) PAGE 2 Signed ReportUR HCG [id number] 16:35:00 Test Item Value Reference Range Interpretation Comments UR HCG QUAL (test code = HCGQLU) NEGATIVE NEGATIVE [O] Urine Test (in office)2018-07-10 11:38:00 Test Item Value Reference Range Interpretation Comments Test, Urine; Normal (test negative N code = 2106-3) [facility] 1 VIEW [id number] 18:54:47 LOCATION: V20 EXAM: XR CHEST 1 VIEW PORTABLEHISTORY: [id number]: Chest pain TECHNIQUE: Frontal view ofthe chest.COMPARISON: None.FINDINGS:The study is limited due to underpenetration of the overlying soft tissues.No confluent consolidation. No evidence of pneumothorax or pleural effusion. The heart is n ormal in size. The mediastinal contours are unremarkable. Osseous structures are intact. IMPRESSION:Limited examination, without evidence of acute cardiopulmonary disease.COMPREHENSIVE METABOLIC [id number] 18:20:00 Test Item Value Reference Range Interpretation Comments GLUCOSE (test code = 06D) 85 [...] (test code = GLB) 4.3 g/dL 1.5-3.8 H ALB/GLOB (test code = AGRR) 0.8 1.0-2.6 L ALK PHOS (test code = 35A) 80 IU/L 42-121 AST (test code = 30A) 77 IU/L <=42 H ALT (test code = 31A) 47 IU/L <=78 TROPONIN [id number] 18:19:00 Test Item Value Reference Range Interpretation Comments TROPONIN I (test code = A84) <0.015 ng/mL 0.000-0.045 CBC (INCLUDES AUTOMATED DIFFERENTIAL)2018-07-08 18:02:00 Test Item Value Reference Range Interpretation Comments WBC (test code = WBC) 9.7 10\S\3/uL 4.5-11.0 RBC (test code = RBC) 4.19 10\S\6/uL 4.30-5.70 L HGB (test code = HBG) 11.0 g/dL 12.0-15.5 L HCT (test code = HCT) 35.4 % 35.0-44.0 MCV (test code = MCV) 84.5 fL 81.0-99.0 MCH (test code = MCH) 26.3 pg 27.0-31.0 L MCHC (test code = MCHC) 31.1 g/dL 32.0-36.0 L RDW (test code = RDW) 15.9 % 11.5-14.5 H PLT (test code = PLT) 237 10\S\3/uL [...] (test code = RBCMOR) NORMAL DIRECT CHLAMYDIA [id number] 15:43:00 Test Item Value Reference Range Interpretation Comments CHLAMYDIA NOT DETECTED NOT DETECTED TRACHOMATIS (test code = 74590056) NEISSERIA NOT DETECTED NOT DETECTED GONORRHOEAE (test code = 46003558) Endnote (test code This test was = 41877173) performed using the APTIMA COMBO2 Assay([employer]The zayda tical performance characteristics of thisassay, when used to test SurePat h specimens haveb een determined by [facility].AARON T PERFORMED AT:[employer] [id number] [place] [id number] ORO M.D. URINALYSIS WITH [id number] 08:22:00 Test Item Value Reference Range Interpretation Comments COLOR (test code = COLU) YELLOW YELLOW CLARITY (test code = CLA) CLOUDY CLEAR A GLUCOSE UR (test code = UA NEGATIVE NEGATIVE GLUCOSE) BILI UR (test code = BILE) NEGATIVE NEGATIVE KETONES UR (test code = DELIA) NEGATIVE NEGATIVE SP GRAVITY (test code = SPGR) 1.022 1.005-1.030 PH UR (test code = PH) 6.0 4.5-8.0 PROTEIN UR (test code = PU) NEGATIVE NEGATIVE UROBIL UR (test code = UROQ) 1.0 EU/dL 0.2-1.0 NITRITE UR (test code = NEGATIVE NEGATIVE NITRITE) BLOOD UR (test code = UA BLOOD) NEGATIVE NEGATIVE LEUK ES UR (test code = LEUK) NEGATIVE NEGATIVE WBC UR (test code = UWBC) 0 /HPF 0-5 RBC UR (test code = URBC) 0 /HPF 0-2 EPITH UR (test code = UEPC) MODERATE /LPF FEW A BACTERIA UR (test code = UBACT) FEW /HPF NONE A CAST UR (test code = CAST) /LPF NONE CRYSTAL UR (test code = CRYU) / LPF NONE MUCUS UR (test code = MUC) / HPF NONE AMORPH UR (test code = LORI) MANY / HPF NONE A TRICH UR (test code = UTRICH) /HPF NONE YEAST UR (test code = UY) /HPF NONE SPERM UR (test code = USPERM) /HPF NONE WET [id number] 08:06:00 Test Item Value Reference Range Interpretation Comments Direct Exam (test RARE WHITE BLOOD CELLS code = DE1) SEEN Direct Exam (test FEW CLUE CELLS SEEN code = DE2) Direct Exam (test NO TRICHOMONAS SEEN code = DE3) Direct Exam (test NO YEAST SEEN code = DE4) CREATINE KINASE (CK), TOTAL AND [id number] 09:27:00 Test Item Value Reference Range Interpretation Comments CREATINE KINASE TOTAL (BEAKER) 224 U/L 25-235 (test code = 380) CREATINE KINASE-MB (BEAKER) (test 1.0 ng/mL 0.0-4.9 code = 750) CREATINE KINASE-MB INDEX (BEAKER) 0.4 % (test code = 395) CK-MB Reference Range:<5 Normal5-10 Borderline>10 AbnormalTROPONIN I 2016-11-22 09:27:00 Test Item Value Reference Range Interpretation Comments TROPONIN I (BEAKER) (test code = [...] acidosis, acute neurological disease, and persistent tachyarrhythmia.TROPONIN [id number] 22:50:00 Test Item Value Reference Range Interpretation Comments TROPONIN I (BEAKER) (test code = [...] 2016-11-21 22:49:00 Test Item Value Reference Range Interpretation Comments CREATINE KINASE TOTAL (BEAKER) 264 U/L 25-235 H (test code = 380) CREATINE KINASE-MB (BEAKER) (test 1.4 ng/mL 0.0-4.9 code = 750) CREATINE KINASE-MB INDEX (BEAKER) 0.5 % (test code = 395) CK-MB Reference Range:<5 Normal5-10 Borderline>10 AbnormalCBC W/PLT COUNT & AUTO [id number] 15:34:00 Test Item Value Reference Range Interpretation Comments WHITE BLOOD CELL COUNT (BEAKER) 8.8 K/ L 4.0-10.0 (test code = 775) RED BLOOD CELL COUNT (BEAKER) 4.14 M/ L 4.00-5.00 (test code = 761) HEMOGLOBIN (BEAKER) (test code = 10.1 GM/DL 12.0-15.0 L 410) HEMATOCRIT (BEAKER) (test code = 31.9 % 36.0-45.0 L 411) MEAN CORPUSCULAR VOLUME (BEAKER) 77.1 fL 82.0-99.0 L (test code = 753) MEAN CORPUSCULAR HEMOGLOBIN 24.4 pg 27.0-33.0 L (BEAKER) (test code = 751) MEAN CORPUSCULAR HEMOGLOBIN CONC 31.6 GM/DL 32.0-36.0 L (BEAKER) (test code = 752) RED CELL DISTRIBUTION WIDTH 17.4 % 10.3-14.2 H (BEAKER) (test code = 412) PLATELET COUNT (BEAKER) (test 263 K/CU MM 150-430 code = 756) MEAN PLATELET VOLUME (BEAKER) 8.5 fL 6.5-10.5 (test code = 754) NEUTROPHILS RELATIVE PERCENT 52 % (BEAKER) (test code = 429) LYMPHOCYTES RELATIVE PERCENT 37 % (BEAKER) (test code = 430) MONOCYTES RELATIVE PERCENT 8 % (BEAKER) (test code = 431) EOSINOPHILS RELATIVE PERCENT 3 % (BEAKER) (test code = 432) BASOPHILS RELATIVE PERCENT 1 % (BEAKER) (test code = 437) NEUTROPHILS ABSOLUTE COUNT 4.50 K/ L 1.80-8.00 (BEAKER) (test code = 670) LYMPHOCYTES ABSOLUTE COUNT 3.30 K/ L 1.48-4.50 (BEAKER) (test code = 414) MONOCYTES ABSOLUTE COUNT (BEAKER) 0.70 K/ L 0.00-1.30 (test code = 415) EOSINOPHILS ABSOLUTE COUNT 0.30 K/ L 0.00-0.50 (BEAKER) (test code = 416) BASOPHILS ABSOLUTE COUNT (BEAKER) 0.00 K/ L 0.00-0.20 (test code = 417) (MANUAL DIFFERENTIAL)2016-11-21 15:34:00 Test Item Value Reference Range Interpretation Comments NEUTROPHILS - REL (DIFF) (BEAKER) 48 % (test code = 1359) LYMPHOCYTES - REL (DIFF) (BEAKER) 43 % (test code = 1360) MONOCYTES - REL (DIFF) (BEAKER) 5 % (test code = 1361) EOSINOPHILS - REL (DIFF) (BEAKER) 2 % (test code = 1362) BANDS - REL (DIFF) (BEAKER) (test 2 % 0-10 code = 1348) NEUTROPHILS - ABS (DIFF) (BEAKER) 4.22 K/ L 1.80-8.00 (test code = 1365) LYMPHOCYTES - ABS (DIFF) (BEAKER) 3.78 K/ L 1.48-4.50 (test code = 1366) MONOCYTES - ABS (DIFF) (BEAKER) 0.44 K/ L 0.00-1.30 (test code = 1367) EOSINOPHILS - ABS (DIFF) (BEAKER) 0.18 K/ L 0.00-0.50 (test code = 1368) BANDS-ABS (DIFF) (BEAKER) (test 0.2 K/ L 0.0-0.8 code = 1349) TOTAL COUNTED (BEAKER) (test code 100 = 1351) BANDS + SEGMENTED NEUTROPHILS 4.40 (BEAKER) (test code = 1352) WBC MORPHOLOGY (BEAKER) (test Normal code = 487) PLT MORPHOLOGY (BEAKER) (test Normal code = 486) HYPOCHROMIA (BEAKER) (test code = 2+ moderate 963) [id number] 15:30:00 Test Item Value Reference Range Interpretation Comments D-DIMER QUANTITATIVE (BEAKER) 0.33 MG/L FEU <0.50 (test code = 671) REGARDING D-DIMER RESULTS: The 98% NPV (Negative Predictive Value) for DVT/PE exclusion is 0.50 mg/LFEU as suggested by the manager of revenue and as approved by the FDA.RAPID DRUG SCREEN, [id number] 15:16:00 Test Item Value Reference Range Interpretation Comments BARBITURATE URINE (BEAKER) (test Negative Negative code = 725) BENZODIAZEPINE SCREEN URINE (BEAKER) Negative Negative (test code = 726) COCAINE (METAB.) SCREEN (BEAKER) Negative Negative (test code = 1164) METHADONE SCREEN (BEAKER) (test code Negative Negative = 1436) OPIATE SCREEN URINE (BEAKER) (test Negative Negative code = 734) CANNABINOID SCREEN URINE (BEAKER) Negative Negative (test code = 727) AMPH/METHAMPH SCREEN (BEAKER) (test Negative Negative code = 1438) PHENCYCLIDINE SCREEN URINE (BEAKER) Negative Negative (test code = 608) DRUG CUTOFF CONC.Cocaine 300 ng/mL Cannabinoid 50 ng/mLBenzodiazepine 200 ng/mLBarbiturate 200 ng/mLPhencyclidine 25 ng/mLOpiate 300 ng/mLMethadone 300 ng/mLAmphetamine/ 1000 ng/mL MethamphetamineThis assay provides an unconfirmed qualitative test result for the clinical management of patients in emergency situations. Chain of custody not maintained. Some aaim-ydd-ieyzhhz medications, as well as adulterants, may cause inaccurate results. Clinical correlation should be applied. A more comprehensivedrug screen or confirmation of a detected drug may be performed upon request.CREATINE KINASE (CK), TOTAL AND [id number] 15:13:00 Test Item Value Reference Range Interpretation Comments CREATINE KINASE TOTAL (BEAKER) 329 U/L 25-235 H (test code = 380) CREATINE KINASE-MB (BEAKER) (test 1.5 ng/mL 0.0-4.9 code = 750) CREATINE KINASE-MB INDEX (BEAKER) 0.5 % (test code = 395) CK-MB Reference Range:<5 Normal5-10 Borderline>10 AbnormalTROPONIN I 2016-11-21 15:13:00 Test Item Value Reference Range Interpretation Comments TROPONIN I (BEAKER) (test code = [...] 2016-11-21 15:12:00 Test Item Value Reference Range Interpretation Comments COLOR (BEAKER) (test code = 470) Yellow CLARITY (BEAKER) (test code = 469) Clear SPECIFIC GRAVITY UA (BEAKER) (test 1.010 1.001-1.035 code = 468) PH UA (BEAKER) (test code = 467) 7.0 5.0-8.0 PROTEIN UA (BEAKER) (test code = Negative Negative 464) GLUCOSE UA (BEAKER) (test code = Negative Negative 365) KETONES UA (BEAKER) (test code = Negative Negative 371) BILIRUBIN UA (BEAKER) (test code = Negative Negative 462) BLOOD UA (BEAKER) (test code = 461) Negative Negative NITRITE UA (BEAKER) (test code = Negative Negative 465) LEUKOCYTE ESTERASE UA (BEAKER) Negative Negative (test code = 466) UROBILINOGEN UA (BEAKER) (test code 1.0 mg/dL 0.2-1.0 = 463) BACTERIA (BEAKER) (test code = 517) Few RBC UA-MANUAL (BEAKER) (test code = <5 /HPF 1659) WBC UA-MANUAL (BEAKER) (test code = <5 /HPF 1661) SQUAMOUS EPITHELIAL MANUAL (BEAKER) 5-10 /HPF (test code = 1663) SOURCE(BEAKER) (test code = 8384) B-TYPE NATRIURETIC FACTOR (BNP)2016-11-21 15:12:00 Test Item Value Reference Range Interpretation Comments B-TYPE NATRIURETIC PEPTIDE (BEAKER) < pg/mL 0-100 (test code = 700) COMPREHENSIVE METABOLIC [id number] 15:05:00 Test Item Value Reference Range Interpretation Comments TOTAL PROTEIN 7.5 gm/dL 6.0-8.5 (BEAKER) (test code = 770) ALBUMIN (BEAKER) 3.8 g/dL 3.5-5.0 (test code = 1145) ALKALINE PHOSPHATASE 78 U/L 30-115 (BEAKER) (test code = 346) BILIRUBIN TOTAL 0.2 mg/dL 0.1-1.2 (BEAKER) (test code = 377) SODIUM (BEAKER) (test 141 meq/L 135-148 code = 381) POTASSIUM (BEAKER) 3.8 meq/L 3.6-5.5 (test code = 379) CHLORIDE (BEAKER) 107 meq/L 98-106 H (test code = 382) CO2 (BEAKER) (test 26 meq/L 20-29 code = 355) BLOOD UREA NITROGEN 13 mg/dL 10-26 (BEAKER) (test code = 354) CREATININE (BEAKER) 0.90 mg/dL 0.50-1.20 (test code = 358) GLUCOSE RANDOM 89 mg/dL 70-110 (BEAKER) (test code = 652) CALCIUM (BEAKER) 8.8 mg/dL 8.5-10.5 (test code = 697) AST (SGOT) (BEAKER) 16 U/L 5-40 (test code = 353) ALT (SGPT) (BEAKER) 11 U/L 5-50 (test code = 347) EGFR (BEAKER) (test 90 mL/min/1.73 ESTIMA VILMA GFR IS code = 1092) sq m NOT ACCURATE CREATININE CLEARANCE IN PREDICTING GLOMERULAR FILTRATION RATE . ESTIMATED GFR I S NOT APPLICABLE FOR DIALYSIS PATIEN TS. SCREEN, [id number] 15:02:00 Test Item Value Reference Range Interpretation Comments TEST URINE (BEAKER) (test Negative code = 583)
[2020-01-20 07:04] LABS: Urine Glucose NEGATIVE (NEG); Urine Specific Gravity >1.030 (1.005-1.030)
[2020-01-20 07:05] LABS: Urine Blood NEGATIVE (NEG); Urine Protein NEGATIVE (NEG)
[2020-01-20 07:14] LABS: Urine Bacteria >50 /HPF (<20); Urine Culture Reflex Order NOT NEEDED; Urine Mucus MOD /HPF (NONE SEEN); Urine RBC <5 /HPF (NONE SEEN)
[2020-01-20] MEDS ORDERED: HYDROCODONE/APAP 5/325 MG TAB ONE (07:45)
--- NOTE | 2020-01-20 08:31 | RAD REPORT ---
EXAM DESCRIPTION: US - Transvaginal Study Probe - 01/20/2020 8:14 am CLINICAL HISTORY: Pelvic pain COMPARISON: none FINDINGS: The uterus measures 10 x 5 x 6cm. A fibroid is not seen. Endometrial stripe measures 8 mil limeters Left ovary normal in size and echotexture. The right ovary was not seen secondary to overlying bowel gas The right and left adnexal unremarkable No significant free fluid is seen. IMPRESSION: No acute abnormality displayed
[2020-01-20] MEDS ORDERED: AZITHROMYCIN 250 MG TAB ONE (09:03)
[2020-01-20] MEDS ORDERED: CEFTRIAXONE 1000 MG/VIAL ONE (09:04)
[2020-01-20] MEDS ORDERED: WATER FOR INJ,STERILE 10 ML ONE (09:04)
--- NOTE | 2020-01-20 09:11 | EDPHYS ---
Physician Documentation [facility] Name: Victor M Cortez Age: 34 yrs Sex: Female : 1985 Arrival Date: 01/20/2020 Time: 06:27 Bed 19 Private MD: ED Physician John Kwok HPI: 01/19 06:51 This 34 yrs old Black Female presents to ER via Ambulatory with complaints of Headache, jmm Pain With Urination. 06:51 The patient presents with a possible exposure to a sexually transmitted disease, jmm urinary symptoms, dysuria, vaginal discharge. Onset: The symptoms/episode began/occurred gradually, 3 week(s) ago. Modifying factors: The symptoms are alleviated by nothing, the symptoms are aggravated by urinating. Associated signs and symptoms: Pertinent positives: vaginal discharge, Pertinent negatives: fever. This is a 34 year old female with a history of CHF, HTN, that presents to the ED with complaint vaginal mal-odour, dysuria, pelvic pain beginning approx 3 weeks ago. Patient is concerned she may have an STI. . 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 - Social history:: Smoking status: Patient/guardian denies using tobacco, the patient reports quitting approximately 5 years ago. ROS: 06:51 Constitutional: Negative for fever, chills, and weight loss, Cardiovascular: Negative jmm for chest pain, palpitations, and edema, Respiratory: Negative for shortness of breath, cough, wheezing, and pleuritic chest pain. 06:51 : Positive for urinary symptoms, pelvic pain. 06:51 All other systems are negative. Exam: 06:51 Constitutional: This is a well developed, well nourished patient who is awake, alert, jmm and in no acute distress. Head/Face: atraumatic. Eyes: EOMI, no conjunctival erythema appreciated ENT: Moist Mucus Membranes Neck: Trachea midline, Supple Chest/axilla: Normal chest wall appearance and motion. Cardiovascular: Regular rate and rhythm. No edema appreciated Respiratory: Normal respirations, no respiratory distress appreciated Abdomen/GI: Non distended, soft Back: Normal ROM Skin: General appearance color normal MS/ Extremity: Moves all extremities, no obvious deformities appreciated, no edema noted to the lower extremities Neuro: Awake and alert, normal gait Psych: Behavior is normal, Mood is normal, Patient is cooperative and pleasant Vital Signs: 06:49 Pulse 91; Resp 17; Temp 98.0(O); Pulse Ox 100% ; Weight 142.88 kg; Pain 10/10; mt2 07:15 BP 157 / 91; mt2 09:22 Pulse 89; Resp 16; Pulse Ox 100% ; jl7 MDM: 06:50 Patient medically screened. [facility] 08:43 Data reviewed: vital signs, nurses notes. Counseling: I had a detailed discussion with [facility] the patient and/or guardian regarding: the historical points, exam findings, and any diagnostic results supporting the discharge/admit diagnosis, lab results, radiology results, the need for outpatient follow up, to return to the emergency department if symptoms worsen or persist or if there are any questions or concerns that arise at home. ED course: Patient is alert and non toxic in appearance in the ED. Patient advised to follow up with obgyn for further evaluation and otherwise given strict return precautions. patient understood and agrees with the plan of care. . 01/19 06:50 Order name: GC (GONORR/CHLAMYDIA) Probe [facility] 01/19 06:51 Order name: Wet Prep; Complete Time: 08:43 [facility] 01/19 06:51 Order name: Urine Microscopic Only; Complete Time: 07:17 [facility] 01/19 07:01 Order name: Urine Dipstick--Ancillary (enter results); Complete Time: 07:17 [facility] 01/19 07:01 Order name: Urine --Ancillary (enter results); Complete Time: 07:17 [facility] 01/19 06:44 Order name: Urine Dipstick-Ancillary (obtain specimen); Complete Time: 07:08 [facility] 01/19 06:44 Order name: Urine Test (obtain specimen); Complete Time: 07:08 [facility] 01/19 06:51 Order name: Pelvic Exam Setup; Complete Time: 07:17 [facility] 01/19 07:47 Order name: Transvaginal Study Probe; Complete Time: 08:43 EDMS Administered Medications: 07:39 Drug: [place] 5 mg-325 mg 1 tabs Route: PO; jl7 08:00 Follow up: Response: No adverse reaction; Pain is decreased jl7 09:06 Drug: Rocephin (cefTRIAXone) 250 mg Route: IM; Site: right deltoid; :22 Follow up: Response: No adverse reaction :22 Drug: AZITHromycin 1 grams Route: PO; :22 Follow up: Response: Medication administered at discharge. [facility] Disposition: 01/20/20 09:10 Discharged to Home. Impression: Urinary tract infection, site not specified, Pelvic and perineal pain. - Condition is Stable. - Discharge Instructions: Dysuria, Pelvic Pain, Female, Urinary Tract Infection, Adult. - Prescriptions for Flagyl 500 mg Oral Tablet - take 1 tablet by ORAL route every 12 hours for 7 days; 14 tablet. Bactrim DS 800- 160 mg Oral Tablet - take 1 tablet by ORAL route every 12 hours for 7 days; 14 tablet. - Medication Reconciliation Form, Thank You Letter, Antibiotic Education, Prescription Opioid Use form. - Follow up: Private Physician; When: 2 - 3 days; Reason: Recheck today's complaints, Continuance of care, Re-evaluation by your physician. Addendum: 01/21/2020 10:51 Co-signature as Attending Physician, John Kwok MD I agree with the assessment and t w4 plan of care. Signatures: Dispatcher [employer] [facility] Derek Hightower PA PA jmm Leal, Jahala, RN RN jl7 John Kwok MD MD tw4 Jie Zepeda RN RN mt2 Corrections: (The following items were deleted from the chart) 01/19 07:47 07:31 Pelvis Complete+US.RAD.BRZ ordered. [facility] 09:30 09:10 01/20/2020 09:10 Discharged to Home. Impression: Urinary tract infection, site jl7 not specified; Pelvic and perineal pain. Condition is Stable. Forms are Medication Reconciliation Form, Thank You Letter, Antibiotic Education, Prescription Opioid Use. Follow up: Private Physician; When: 2 - 3 days; Reason: Recheck today's complaints, Continuance of care, Re-evaluation by your physician. enma
--- NOTE | 2020-01-20 09:11 | ER ---
Nurse's Notes [facility] Name: Victor M Cortez Age: 34 yrs Sex: Female : 1985 Arrival Date: 01/20/2020 Time: 06:27 Bed 19 Private MD: Diagnosis: Urinary tract infection, site not specified;Pelvic and perineal pain Presentation: 01/19 06:49 Chief complaint: Patient states: PER PT " IT HURTS SO BAD WHEN I PEE. I ALSO THINK I mt2 HAVE AN STD. I HAVE A FISHY DISCHARGE. LOWER ABD PAIN AND BACK PAIN. Coronavirus screen: At this time, the client does not indicate any symptoms associated with coronavirus-19. Ebola Screen: No symptoms or risks identified at this time. Initial Sepsis Screen: Does the patient meet any 2 criteria? No. Patient's initial sepsis screen is negative. Does the patient have a suspected source of infection? No. Patient's initial sepsis screen is negative. Risk Assessment: Do you want to hurt yourself or someone else? Patient reports no desire to harm self or others. Onset of symptoms was January 06, 2020. 06:49 Method Of Arrival: Ambulatory mt2 06:49 Acuity: ALO 3 mt2 Triage Assessment: 06:52 Headache History: The patient has had previous headaches and this one is similar to mt2 previous episodes. General: Appears uncomfortable, Behavior is restless. Pain: Complains of pain in back, abdomen and pelvis Pain currently is 10 out of 10 on a pain scale. Pain began gradually, Also complains of sleeplessness. EENT: No deficits noted. Neuro: Reports headache. Cardiovascular: No deficits noted. Respiratory: No deficits noted. GI: Reports lower abdominal pain, nausea. : Reports burning with urination, discharge, from vagina that is malodorous. Derm: No deficits noted. Derm: No deficits noted. Musculoskeletal: No deficits noted. [employer]SC[employer] DIRECTOR: 06:54 LMP 01/20/2020, UNCLEAR mt2 Historical: - Allergies: 06:52 No Known Allergies; mt2 - PMHx: 06:52 Bipolar disorder; CHF; Hypertension; mt2 - Immunization history:: Adult Immunizations up to date. - Social history:: Smoking status: Patient/guardian denies using tobacco, the patient reports quitting approximately 5 years ago. Screenin:53 Abuse screen: Denies threats or abuse. Nutritional screening: No deficits noted. mt2 Tuberculosis screening: No symptoms or risk factors identified. Fall Risk None identified. Assessment: 07:36 General: Appears in no apparent distress. uncomfortable, obese, Behavior is jl7 cooperative, flat. Pain: Complains of pain in pelvis and back Pain currently is 10 out of 10 on a pain scale. Neuro: Level of Consciousness is awake, alert, obeys commands, Oriented to person, place, time, situation. Cardiovascular: Patient's skin is warm and dry. Respiratory: Airway is patent Respiratory effort is even, unlabored, Respiratory pattern is regular, symmetrical. GI: Abdomen is non-distended, obese. : malodorous, Reports burning with urination, discharge, from vagina that is malodorous, pain in suprapubic area with urination. Derm: Skin is pink, warm \\T\\ dry. Vital Signs: 06:49 Pulse 91; Resp 17; Temp 98.0(O); Pulse Ox 100% ; Weight 142.88 kg; Pain 10/10; mt2 07:15 BP 157 / 91; mt2 09:22 Pulse 89; Resp 16; Pulse Ox 100% ; jl7 ED Course: 06:27 Patient arrived in ED. cl3 06:39 [facility] jm 06:39 John Kwok MD is Attending Physician. [facility] 06:43 Jie Zepeda, TIARA is Primary Nurse. mt2 06:51 Triage completed. mt2 06:53 Arm band placed on right wrist. mt2 06:53 Patient has correct armband on for positive identification. Bed in low position. Call mt2 light in reach. Side rails up X 1. Side rails up X2. 07:36 Assist provider with pelvic exam: Set up pelvic tray. Performed by Derek PLASENCIA jl7 Specimens sent to lab. Patient tolerated well. Wet prep swab sent to lab. GC swab sent to lab. 08:12 Transvaginal Study Probe In Process Unspecified. EDMS 08:19 Ultrasound completed. Patient tolerated well. aa4 09:22 Patient did not have IV access during this emergency room visit. jl7 Administered Medications: 07:39 Drug: [place] 5 mg-325 mg 1 tabs Route: PO; jl7 08:00 Follow up: Response: No adverse reaction; Pain is decreased 09: Drug: Rocephin (cefTRIAXone) 250 mg Route: IM; Site: right deltoid; Follow up: Response: No adverse reaction : Drug: AZITHromycin 1 grams Route: PO; Follow up: Response: Medication administered at discharge. Outcome: 09:10 Discharge ordered by MD. hunter : Discharged to home ambulatory. Condition: stable : Discharge instructions given to patient, Instructed on discharge instructions, follow up and referral plans. medication usage, Demonstrated understanding of instructions, follow-up care, medications, Prescriptions given X 2. :30 Patient left the ED. Signatures: Dispatcher [employer] EDMS Derek Hightower PA PA jmm Frazier, Amanda aa4 Tierra Rascon RN RN jl7 Christine Jackson cl3 Jie Zepeda RN RN mt2
[2020-01-20 09:35] VITALS: TEMP 98; O2SAT 100
[2020-01-20 09:36] VITALS: BP 157/91
== END 2020-01-20 09:30 | disposition home or self-care (01) ==
LOC: ER 06:26
DX: N39.0 Urinary tract infection, site not specified (principal); I10 Essential (primary) hypertension
CPT/HCPCS: 76830; 81003; 81015; 81025; 87210; 87490; 87590; 96372; 99284

== ENCOUNTER 2020-06-03 12:45 | Emergency (ER) | payer OTHER ==
--- OUTSIDE RECORDS SUMMARY | 2020-06-03 12:47 | XMS REPORT | Clinical Summary ---
:1985 Author Organization [facility] Address [address] [place] [address] Care Team Providers Name Role Phone Kinsey [...] pattern, unspecified headache type 01/14/2020 Travel after 06/03/2019 Surgical History Surgery Date Site/Laterality Comments SECTION BLADDER SURGERY Medical History Medical History Date Comments Hypertension High cholesterol Irregular heart beat CHF (congestive heart failure) (HCC) Social History Tobacco Use Types Packs/Day Years Used Date Former Smoker Smokeless Tobacco: Never Used Alcohol Use Drinks/Week oz/Week Comments No Sex Assigned at Date Recorded Not on file Last Filed Vital Signs Vital Sign Reading [...] Health Maintenance Due Date Last Done Comments COVID-19 VACCINE (#1) 2003 CERVICAL CANCER SCREENING 2008 INFLUENZA VACCINE 01/04/2020 Procedures Procedure Name Priority Date/Time Associated Comments Diagnosis RESPIRATORY PATHOGEN Routine 01/14/2020 10:22 Res ults for this PANEL WITH COVID-19 PM CDT procedur e are in the results section. COVID-19 QUALITATIVE STAT 01/14/2020 [...] are i n the results section. after 06/03/2019 Results Respiratory pathogen panel (01/14/2020 10:22 PM CDT) Adenovirus PCR Not Detected [place] Comment: Y[place]DANISM Specimen Information HOSPITAL Specimen Source: Nasopharyngeal Specimen Site: Left Coronavirus HKU1 PCR Not Detected [facility] Coronavirus NL63 PCR Not Detected [facility] Coronavirus 229E PCR Not Detected [facility] Coronavirus OC43 PCR Not Detected [facility] Human metapneumovirus Not Detected [facility] Human Not Detected [place] rhinovirus/enterovirus [facility] Influenza A PCR Not Detected [facility] Influenza A/H1 PCR Not Reported [facility] Influenza A/H3 PCR Not Reported [facility] Influenza A/H1-2009 Not Reported [facility] Influenza B PCR Not Detected [facility] Parainfluenza virus 1 Not Detected [facility] Parainfluenza virus 2 Not Detected [facility] Parainfluenza virus 3 Not Detected [facility] Parainfluenza virus 4 Not Detected [facility] Respiratory syncytial Not Detected [place] virus PCR [facility] Bordetella pertussis Not Detected [facility] Bordetella Not Detected [place] parapertussis PCR [facility] Chlamydia pneumoniae Not Detected [place] PCR [facility] Mycoplasma pneumoniae Not Detected [facility] Influenza A no sub Not Reported [facility] Specimen Nasopharyngeal - Left Performing Organization Address City/[facility] Phon e Number [facility] DEPARTMENT OF [facility]OLOG[facility] AND [address] [place], [place] [id number] [address] [address] Influenza antigen test, reflex negative to RPP (01/14/2020 10:22 PM CDT) Influenza antigen Negative for Influenza A/B antigen. [facility] Comment: [place] Specimen Information HOSPITAL Specimen Source: Nasopharyngeal Specimen Site: Left Specimen Nasopharyngeal - Left Performing Organization Address [facility] Phon e Number [facility] DEPARTMENT OF PATHOLOGY [address] [facility] [address] AND [facility] [address] [facility] [place] [address] HOSPITAL COVID-19 qualitative PCR (01/14/2020 10:22 PM CDT) Interpretation Negative results do not prec lude 2019-nCoV infection and should not be used as the sole basis for treatment or other patient management decisions. Negative results must be combined with clinical observations, patient history, and epidemiological [place] information. [facility] COVID-19 qualitative Not-Detected Not-Detecte [place] PCR result d [facility] COVID-19 qualitative See link below for [place] PCR PDF Lab Y[place]AN[place] ReportComment: Case HOSPITAL Number: [id number] Specimen Nasopharyngeal swab Performing Organization Address [facility] Phon e Number [facility] DEPARTMENT OF [facility]OLOG[facility] AND [address] [place] [address] [address] [facility] Urinalysis screen and microscopy, with reflex to culture (01/14/2020 9:33 PM CDT) Specimen site Clean catch [facility] Color, UA Yellow [facility] Appearance, UA Clear [facility] Specific gravity, UA 1.019 1.001 - 1.030 [facility] pH, UA 5.0 5.0 - 9.0 [facility] Protein, UA Negative Negative [facility] Glucose, UA Negative Negative [facility] Ketones, UA Negative Negative [facility] Bilirubin, UA Negative Negative [facility] Blood, UA Negative Negative [facility] Nitrite, UA Negative Negative [facility] Urobilinogen, UA <2.0 <2.0 E.U./dL [facility] Leukocyte esterase, Negative Negative [facility] Epithelial cells, UA 1 /HPF [facility] WBC, UA 1 0 - 4 /HPF [facility] RBC, UA 3 0 - 5 /HPF [facility] Bacteria, UA None seen None seen [facility] Yeast, UA None seen [facility] Yeast with None seen [facility] pseudohyphae, UA [facility] Specimen Urine Performing Organization Address City/State/ZIP Code Phon e Number [facility] DEPARTMENT OF PATHOLOGY [id number] [place] [address] AND [facility] [id number] [place] [address] hCG qualitative, urine screen (01/14/2020 9:33 PM CDT) hCG qualitative, NegativeComment: [facility] urine Sensitivity of HCG [place] test: 25 mIU/ml HOSPITAL Specimen Urine Performing Organization Address City/[facility]/ZIP Code Phon e Number [facility] DEPARTMENT OF PATHOLOGY [id number] [facility] X [facility] AND [facility] [id number] [place] [address] Urine culture (01/14/2020 9:33 PM CDT) Pathologist Sig nature Urine culture SEE COMMENTComment: [facility] Bacteriuria screen [facility] negative. 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
--- OUTSIDE RECORDS SUMMARY | 2020-06-03 12:47 | XMS REPORT | Clinical Summary ---
:1985 Author Organization [facility] Address [address] [place] [address] Care Team Providers Name Role Phone Claire Granados MD Primary Care Provider Allergies No Known Allergies Medications Medication Sig [...] pain 03/16/2016 Acute angina 02/29/2016 Immunizations Name Administration Dates Next Due Influenza Three-TIV PF 4+YR 03/16/2016 Pneumococcal Polysaccharide (Pneumovax) 03/16/2016 Family History Medical History Relation Name Comments Heart disease Father Hypertension Father Cancer Mother Relation Name Status Comments Father Mother Social History Tobacco Use Types Packs/Day Years Used Date Former Smoker 1 Alcohol Use Drinks/Week oz/Week Comments Yes socially Sex Assigned at Date Recorded Not on file Last Filed Vital Signs Not on file Plan of Treatment Not on file Results Not on fileafter 06/03/2019 Insurance Payer Benefit Plan Subscriber ID Effective Dates Phone Address Type / Group MEDICAID - [facility] [id number] 2016-[place] MEDICAID [employer]AN [facility] Advance Directives For more information, please contact: [phone] Code Status Date Activated Date Inactivated Comments Full Code 11/21/2016 5:39 PM 11/22/2016 10:54 PM This code status was determined by: Patient Full Code 03/16/2016 10:37 AM 03/17/2016 1:07 PM This code status was determined by: Patient Full Code 02/29/2016 3:20 PM 03/01/2016 9:52 AM This code status was determined by: Patient
--- OUTSIDE RECORDS SUMMARY | 2020-06-03 12:48 | XMS REPORT | Continuity of Care Document ---
:1985 Author Organization [facility] t Address [address] [place] [address] Care Team Providers Name Role Phone Roberta MCKINNEY, N. Primary Care Physician Minda Craig MD Attending Clinician DEEPIKA Attending Clinician Unavailable LUISA Attending Clinician Unavailable SHERIDAN Attending Clinician Unavailable DR AYESHA Attending Clinician Unavailable ISSAC Attending Clinician Unavailable MS Michael TEIXEIRA Attending Clinician Unavailable SIMONE Attending Clinician Unavailable DR AYESHA Admitting Clinician Unavailable MS Michael TEIXEIRA Admitting Clinician Unavailable QUINCY GRANADOS Admitting Clinician Unavailable Payers Payer Name Policy Type Policy Effective Date Expiration Date Sour ce Number [facility] MEDICAIDUNITED [id number] 2019 [place] [employer]+ 00:00:00 [facility] [id number] 2019- PresentHMO Problems Condition Condition Condition Status Onset Resolution Last Treating Co mments Source Name Details Category Date Date Treatment Clinician Date UTI UTI Disease Active [facility] (urinary (urinary 06-06 Method i tract tract 00:00: st infection) infection) 00 , , uncomplica uncomplica vilma vilma Chest pain Chest pain Disease Active 2015-[address] [facility] Acute Acute Disease [facility] Bipolar Bipolar Problem Active [facility] disorder [facility] [place] [facility] Schizophre Schizophre Problem Active U [...] Date Date Clinician Aspirin Propensi Active [facility] [place] ty to Intolerance 06-06 Metho di adverse 00:00: st reaction 00 s to drug aspirin DA Active [place] 2014-06 [facility] [place] [facility] Aspirin drug Active Gatro[facility] Uni vers TABS allergy nal upset [facility] [place] [facility] Family History Family Member Diagnosis Comments Start Date Stop Date Source Mother Family history of [facility] [place] diabetes mellitus [facility] Mother Family history of [facility] [place] malignant neoplasm of Phy sicians breast Mother Family history of [facility] [place] hypertension Physicians Father Family history of [facility] [place] malignant neoplasm of Phy sicians bone Father Family history of [facility] [place] myocardial infarction Phy [facility] Natural father Heart disease [facility] Natural father Hypertension [facility] Natural mother Cancer [facility] Social History Social Habit Start Date Stop Date Quantity Comments Source Sex Assigned At [facility] Tobacco use and 2020-01-14 2020-01-14 Never used Manolo Pa ethodist exposure 00:00:00 00:00:00 Cigarettes smoked 2016-11-21 2016-11-21 VIRIDIANA Manley - current (pack per 00:00:00 00:00:00 Medical Center day) - Reported Alcohol intake 2016-11-21 2016-11-21 Current drinker VIRIDIANA Davis - 00:00:00 00:00:00 of alcohol [facility] (finding) Alcohol Comment 2014-04-29 2014-04-29 socially VIRIDIANA Huang kes - 00:00:00 00:00:00 Medical Center Smoking Status Start Date Stop Date Source Light tobacco smoker [facility] Former smoker 2016-11-21 00:00:00 2016-11-21 00:00:00 VIRIDIANA Schmid - [facility] Medications Ordered Filled Start Stop Current Ordering [...] Physici Aerosol Aerosol (MORNING ans AND EVENING). cetirizine Yes 10mg QD Take [address] (ZYRTEC) 10 6-20 by mouth [facility] - MG tablet 20:54: daily. Medica l [address] [place] [address] aspirin 81 Yes 81mg QD Take [address] MG EC 6-20 by mouth [facility] - tablet 20:54: daily. Medical [address] [place] [address] ALPRAZolam Yes .25mg Take 0.[address] (XANAX) 6-20 mg by [facility] - 0.25 MG 20:54: mouth. Medical tablet [address] [place] [address] QUEtiapine Yes 50mg Take [address] (SEROQUEL) 6-20 by mouth. Luke s - 50 MG 20:54: Medical tablet 25 Center carBAMazepi 2017-0 Yes 100mg QD Take [address] ne 6-20 mg by [facility] - (TEGRETOL 20:54: mouth Medical XR) 100 MG 25 nightly. Cente r 12 hr tablet Lisinopril Lisinopril Yes JOHNECA QD TAKE 1 [...] Phys icians Syringe Influenza Three-TIV 2016-03-16 Completed VIRIDIANA S t Lukathi - PF 4+YR 00:00:00 [facility] Pneumococcal 2016-03-[address] [facility] - Polysaccharide 00:00:00 Medical Ce nter (Pneumovax) Varicella Zoster IG Unknown Completed [facility] Tdap (Adacel) Unknown Completed [facility] Vital Signs Vital Name Observation Time Observation Value Comments Source Systolic blood 2020-01-14 21:30:00 127 mm[Hg] Viet maldonado [facility] pressure Diastolic blood 2020-01-14 21:30:00 67 mm[Hg] Zoraida on [facility] pressure Body height 2020-01-14 21:29:00 154.9 cm Manolo Le Body weight 2020-01-14 21:29:00 142.883 kg Manolo Le BMI 2020-01-14 21:29:00 59.52 kg/m2 [facility] Oxygen saturation in 2020-01-14 21:27:00 99 /min Manolo Le Arterial blood by Pulse oximetry Heart rate 2020-01-14 21:26:00 86 /min Manolo Mcmullenist Respiratory rate 2020-01-14 21:26:00 18 /min Raul farias [facility] Body temperature 2020-01-14 20:20:52 36.89 Kiki Raul farias [facility] BP Systolic 2018-07-10 09:50:00 114 mm[Hg] [facility] [place] [facility] BP Diastolic 2018-07-10 09:50:00 75 mm[Hg] [facility] [place] [facility] Height 2018-07-10 09:50:00 64 [in_us] [...] INFLUENZA ANTIGEN TEST, 2020-01-14 22:22:00 Cooper You [facility] REFLEX NEGATIVE TO RPP COVID-19 QUALITATIVE 2020-01-14 22:22:00 Cooper You jarrett [facility] PCR RESPIRATORY PATHOGEN 2020-01-14 22:22:00 Cooper You jarrett [facility] PANEL WITH COVID-19 URINE CULTURE 2020-01-14 21:33:00 Ann-Marie Craig odist Minda URINALYSIS SCREEN AND 2020-01-14 21:33:00 Ann-Marie Craigto n [facility] MICROSCOPY, WITH REFLEX Minda TO CULTURE HCG QUALITATIVE, URINE 2020-01-14 21:33:00 Cooper You Ho usjarrett [facility] SCREEN [O] Urine 2018-07-10 00:00:00 [facility] Test (in office) Physicians History of [facility] [place] section Physicians History of Dilation [facility] Curettage Physicians Plan of Care Planned Activity Planned Date Details Comments Source Future Scheduled 2020-01-04 INFLUENZA VACCINE [place] [facility] Test 00:00:00 [code = INFLUENZA VACCINE] Future Scheduled 2008 Screening for [facility] thodist Test 00:00:00 malignant neoplasm of cervix (procedure) [code = 656408832] Future Scheduled 2003 COVID-19 VACCINE [facility] [facility] Test 00:00:00 (#1) [code = COVID-19 VACCINE (#1)] Encounters Start End Encounter Admission Attending Care Care Encounter Source Date/Time Date/Time Type Type Clinicians Facility Department ID 2020-01-14 2020-01-14 Emergency [facility] [id number] [place] 00:00:00 00:00:00 ANN-MARIE [address] 2018-10-08 2018-10-08 Ning POE, [facility] UTP [id number] Univers 10:30:00 10:30:00 t; biju VILLANUEVA D.O. [place] Palmira VILLANUEVA D.O. ans 2018-08-10 2018-08-10 EMILY Hahn UTP [id number] Univers 14:20:00 14:20:00 t; EDUARDO MORAN ity o f MARTHA, M.D. [place] Sage Chavis ans 2018-07-24 2018-07-24 EMILY Santiago [facility] [id number] Univers 11:30:00 11:30:00 t; DULCE ity tanmay SWARTZ M.D. [place] Carrillo CARDONA M.D. [facility] monett 2018-07-10 2018-07-10 Appointrhianna DEEPIKACentinela [facility] [id number] [facility] 09:45:00 09:45:00 t; RICH, Health and it y of Tasha POE [facility] Phys[facility] DTaran [facility] 2018-07-08 2018-07-08 Emergency [facility] [id number] [place] 17:05:00 18:50:00 [facility] 2018-07-08 2018-07-08 Emergency E [facility] [id number] [place] 17:03:00 17:03:00 Medica l [facility] 2018-07-05 2018-07-05 Appointrhianna ISSACCentinela [facility] [id number] [facility] 11:30:00 11:30:00 t; DOROTHY DAVENPORT WELDER Health and ity tanmay DE LA CRUZ NP [facility] s [facility] 2017-09-18 2017-09-18 Emergency [facility] [id number] [place] 07:05:00 08:40:00 [facility] 2017-02-17 2017-02-17 Emergency [facility] [id number] [place] 13:04:00 13:45:00 [facility] Results Test Description Test Time Test Comments Results Result Comments Source COVID-19 qualitative PCR 2020-01-15 05:06:14 Test Item Value Reference Range Interpretation Comme nts Interpretation (test code = Negative results do not 6429919) preclude 2019-nCoV infection and should not be used as the sole basis for treatment or other patient management decisions. Negative results must be combined with clinical observations, patient history, and epidemiological information. COVID-19 qualitative PCR Not-Detected Not-Detected result (test code = 16593-9) COVID-19 qualitative PCR See link below for PDF Lab Case Number: (test code = 7070) Report [id number] [facility] [id number] 03:44:39 Test Item Value Reference Interpretation Comments [...] Not Detected pertussis PCR (test code = 7983880) Bordetella Not Detected parapertussis PCR (test code = 4332612) Chlamydia Not Detected pneumoniae PCR (test code = 3753) Mycoplasma Not Detected pneumoniae PCR (test code = 7110) Influenza A no sub Not Reported type PCR (test code = 7127) Manolo MethodistInfluenza antigen test, reflex negative to [id number] 22:58:26 Test Item Value Reference Interpretation Comments Range Influenza Negative for Specimen antigen (test Influenza A/B InformationSp ecimen Source: code = 83055-6) antigen. Nasopharynge alSpecimen Site: Left French MethodisthCG qualitative, urine [id number] 21:55:19 Test Item Value Reference Range Interpretation Comments hCG qualitative, Negative Sensitivity of HCG test: urine (test code = 25 mIU/ml 2106-3) Manolo McmullenistUrine [id number] 21:45:50 Test Item Value Reference Range Interpretation Comments Urine culture (test SEE COMMENT Bacteriu nate screen code = 1146959) negative. Manolo MethodistUrinalysis screen and microscopy, with reflex to culture 2020-01-14 21:45:49 Test Item Value Reference Range Interpretation Comments Specimen site (test code = Clean catch 1528372) Color, UA (test code = 5778-6) Yellow Appearance, UA (test code = Clear 5767-9) Specific gravity, UA (test code = 1.019 1.001-1.030 5811-5) pH, UA (test code = 5803-2) 5.0 5.0-9.0 Protein, UA (test code = 52253-8) Negative Negative Glucose, UA (test code = 19451-2) Negative Negative Ketones, UA (test code = 2514-8) Negative Negative Bilirubin, UA (test code = Negative Negative 5770-3) Blood, UA (test code = 5794-3) Negative Negative Nitrite, UA (test code = 5802-4) Negative Negative Urobilinogen, UA (test code = <2.0 <2.0 E.U./dL 51872-7) Leukocyte esterase, UA (test code Negative Negative = 5799-2) Epithelial cells, UA (test code = 1 /HPF 5787-7) WBC, UA (test code = 5821-4) 1 0- 4 /HPF RBC, UA (test code = 56475-1) 3 0- 5 /HPF Bacteria, UA (test code = None seen None seen 55740-5) Yeast, UA (test code = 35114-7) None seen Yeast with pseudohyphae, UA (test None seen code = 76128-4) [facility] [facility]- XR FOREARM 2 VIEWS [id number] 17:02:00 Name: MARIAM CURIEL [facility] ED : 1985 Age/S: 33 / F [id number] [facility] Unit #: [id number] Loc: [place] [address] Phys: Lina Blair MD Acct: [id number] Dis Date: Status: REG ER PHONE #: [phone] Exam Date: 03/03/2019 0084 FAX #: Reason: right forearm and hand injury EXAMS: CPT: [id number] [place]R [place] [address] [place] [address] Fluoro Time: DAP (Gy m2): Air Kerma [...] PAGE 1 Signed Report Name: MARIAM CURIEL [place] : 1985 Age/S: 33 / F [address] [address] Unit #: [id number] Loc: [place] [address] Phys: Lina Blair MD Acct: [id number] Dis Date: Status: REG ER PHONE #: [phone] Exam Date: 03/03/2019 1651 FAX #: Reason: right forearm and hand injury EXAMS: CPT: [id number] XR [place] [address] [place] [address] Fluoro Time: DAP (Gy m2): Air Kerma (mGy): <Continued> Technologist: Nayana Hodge RT(R)(CT)(MRI) Trntxb Date/Time: 03/03/2019 (1702) [email or web address] Orig Print D/T: S: 03/03/2019 (1706) PAGE 2 Signed Report- XR HAND 3+V [id number] 17:02:00 Name: MARIAM CURIEL [place] : 1985 Age/S: 33 / F [address] [address] Unit #: [id number] Loc: [place] [address] Phys: Lina Blair MD Acct: [id number] Dis Date: Status: REG ER PHONE #: [phone] Exam Date: 03/03/2019 165 FAX #: Reason: right forearm and hand injury EXAMS: CPT: [id number] XR HAND 3+[place] [address] Fluoro Time: DAP (Gy m2): Air Kerma [...] PAGE 1 Signed Report Name: MARIAM CURIEL [facility] ED : 1985 Age/S: 33 / F [address] [address] Unit #: [id number] Loc: [place] [address] Phys: Lina Blair MD Acct: [id number] Dis Date: Status: REG ER PHONE #: [phone] Exam Date: 03/03/2019 1651 FAX #: Reason: right forearm and hand injury EXAMS: CPT: [id number] XR HAND 3+VRT 35660 Fluoro Time: DAP (Gy m2): Air Kerma (mGy): <Continued> Technologist: Nayana Hodge RT(R)(CT)(MRI) Trnscb Date/Time: 03/03/2019 (170) [email or web address] Orig Print D/T: S: 03/03/2019 (1706) PAGE 2 Signed ReportUR HCG [id number] 16:35:00 Test Item Value Reference Range Interpretation Comments UR HCG QUAL (test code = HCGQLU) NEGATIVE NEGATIVE [O] Urine Test (in office)2018-07-10 11:38:00 Test Item Value Reference Range Interpretation Comments Test, Urine; Normal (test negative N code = 2106-3) [facility] VIEW [id number] 18:54:47 LOCATION: V20 EXAM: XR CHEST 1 VIEW PORTABLEHISTORY: [id number]: Chest pain TECHNIQUE: Frontal view ofthe chest.COMPARISON: None.FINDINGS:The study is limited due to underpenetration of the overlying soft tissues.No confluent consolidation. No evidence of pneumothorax or pleural effusion. The heart is n ormal in size. The mediastinal contours are unremarkable. Osseous structures are intact. IMPRESSION:Limited examination, without evidence of acute cardiopulmonary disease.COMPREHENSIVE METABOLIC [id number] 18:20:00 Test Item Value Reference Range Interpretation [...] code = 31A) 47 IU/L <=78 TROPONIN [id number] 18:19:00 Test Item Value Reference Range Interpretation [...] (test code = RBCMOR) NORMAL DIRECT CHLAMYDIA [id number] 15:43:00 Test Item Value Reference Range Interpretation Comments CHLAMYDIA NOT DETECTED NOT DETECTED TRACHOMATIS (test code = 55671149) NEISSERIA NOT DETECTED NOT DETECTED GONORRHOEAE (test code = 33565611) Endnote (test code This test was = 14523073) performed using the APTIMA COMBO2 Assay([employer]The zayda tical performance characteristics of thisassay, when used to test SurePat h specimens haveb een determined by [employer].AARON T PERFORMED AT:[employer] [id number] [place] [address]AAFYTGRAYSON ORO M.D. URINALYSIS WITH [id number] 08:22:00 Test Item Value Reference Range Interpretation [...] (test code = USPERM) /HPF NONE WET [id number] 08:06:00 Test Item Value Reference Range Interpretation Comments Direct Exam (test RARE WHITE BLOOD CELLS code = DE1) SEEN Direct Exam (test FEW CLUE CELLS SEEN code = DE2) Direct Exam (test NO TRICHOMONAS SEEN code = DE3) Direct Exam (test NO YEAST SEEN code = DE4) CREATINE KINASE (CK), TOTAL AND [id number] 09:27:00 Test Item Value Reference Range Interpretation [...] acidosis, acute neurological disease, and persistent tachyarrhythmia.TROPONIN [id number] 22:50:00 Test Item Value Reference Range Interpretation [...] Normal5-10 Borderline>10 AbnormalCBC W/PLT COUNT & AUTO [id number] 15:34:00 Test Item Value Reference Range Interpretation [...] (BEAKER) (test code = 2+ moderate 963) [id number] 15:30:00 Test Item Value Reference Range Interpretation Comments D-DIMER QUANTITATIVE (BEAKER) 0.33 MG/L FEU <0.50 (test code = 671) REGARDING D-DIMER RESULTS: The 98% NPV (Negative Predictive Value) for DVT/PE exclusion is 0.50 mg/LFEU as suggested by the cafe operator and as approved by the FDA.RAPID DRUG SCREEN, [id number] 15:16:00 Test Item Value Reference Range Interpretation [...] situations. Chain of custody not maintained. Some avkn-elw-watvcfj medications, as well as adulterants, may cause inaccurate results. Clinical correlation should be applied. A more comprehensivedrug screen or confirmation of a detected drug may be performed upon request.CREATINE KINASE (CK), TOTAL AND [id number] 15:13:00 Test Item Value Reference Range Interpretation [...] code = 1663) SOURCE(BEAKER) (test code = 9812) B-TYPE NATRIURETIC FACTOR (BNP)2016-11-21 15:12:00 Test Item Value Reference Range Interpretation Comments B-TYPE NATRIURETIC PEPTIDE (BEAKER) < pg/mL 0-100 (test code = 700) COMPREHENSIVE METABOLIC [id number] 15:05:00 Test Item Value Reference Range Interpretation [...] NOT APPLICABLE FOR DIALYSIS PATIEN TS. SCREEN, [id number] 15:02:00 Test Item Value Reference Range Interpretation Comments TEST URINE (BEAKER) (test Negative code = 583)
--- NOTE | 2020-06-03 13:35 | RAD REPORT ---
EXAM DESCRIPTION: RAD - Chest Single View - 06/03/2020 1:27 pm CLINICAL HISTORY: Cough;Dyspnea Chest pain. COMPARISON: No comparisons FINDINGS: Portable technique limits examination quality. The lungs are grossly clear. The heart is normal in size. No displaced fractures. IMPRESSION: No acute intrathoracic process suspected.
[2020-06-03] MEDS ORDERED: LORAZEPAM 1 MG TABLET ONE (13:36)
[2020-06-03] MEDS ORDERED: dexAMETHasone 10 MG/ML VIAL ONE (13:46)
[2020-06-03] MEDS ORDERED: ASPIRIN 81 MG CHEWABLE TABLET ONE (14:01)
--- NOTE | 2020-06-03 14:20 | EDPHYS ---
Physician Documentation [facility] Name: Victor M Cortez Age: 34 yrs Sex: Female : 1985 Arrival Date: 06/03/2020 Time: 12:45 Bed 7 Private MD: ED Physician Frederick Lim HPI: 06/03 13:26 This 34 yrs old Black Female presents to ER via Ambulatory with complaints of Shortness snw Of Breath, Breathing Difficulty. 13:26 The patient has shortness of breath at rest. Onset: The symptoms/episode began/occurred snw suddenly, yesterday. Duration: The symptoms are continuous. Associated signs and symptoms: Pertinent positives: non-productive cough. Severity of symptoms: At their worst the symptoms were moderate severe. The patient has not experienced similar symptoms in the past, but friend has similar symptoms, but co-worker has similar symptoms. It is unknown whether or not the patient has recently seen a physician. "I think I have CoVid". Historical: - Allergies: 13:03 No Known Allergies; bp - Home Meds: 13:03 Unable to obtain [Active]; bp - PMHx: 13:03 Bipolar disorder; Hypertension; CHF; bp - Immunization history:: Adult Immunizations unknown. - Social history:: Smoking status: unknown. ROS: 13:26 Constitutional: Negative for fever, chills, and weight loss, Eyes: Negative for injury, snw pain, redness, and discharge, ENT: Negative for injury, pain, and discharge, Neck: Negative for injury, pain, and swelling, Cardiovascular: Negative for chest pain, palpitations, and edema, Abdomen/GI: Negative for abdominal pain, nausea, vomiting, diarrhea, and constipation, Back: Negative for injury and pain, : Negative for injury, bleeding, discharge, and swelling, MS/Extremity: Negative for injury and deformity, Skin: Negative for injury, rash, and discoloration, Neuro: Negative for headache, weakness, numbness, tingling, and seizure, Psych: Negative for depression, anxiety, suicide ideation, homicidal ideation, and hallucinations. 13:26 Respiratory: Positive for cough, dyspnea on exertion, orthopnea, shortness of breath, wheezing. Exam: 13:24 Head/Face: Normocephalic, atraumatic. Eyes: Pupils equal round and reactive to light, snw extra-ocular motions intact. Lids and lashes normal. Conjunctiva and sclera are non-icteric and not injected. Cornea within normal limits. Periorbital areas with no swelling, redness, or edema. ENT: Nares patent. No nasal discharge, no septal abnormalities noted. Tympanic membranes are normal and external auditory canals are clear. Oropharynx with no redness, swelling, or masses, exudates, or evidence of obstruction, uvula midline. Mucous membranes moist. Neck: Trachea midline, no thyromegaly or masses palpated, and no cervical lymphadenopathy. Supple, full range of motion without nuchal rigidity, or vertebral point tenderness. No Meningismus. Chest/axilla: Normal chest wall appearance and motion. Nontender with no deformity. No lesions are appreciated. Cardiovascular: Regular rate and rhythm with a normal S1 and S2. No gallops, murmurs, or rubs. Normal PMI, no JVD. No pulse deficits. 13:24 Abdomen/GI: Soft, non-tender, with normal bowel sounds. No distension or tympany. No guarding or rebound. No evidence of tenderness throughout. Back: No spinal tenderness. No costovertebral tenderness. Full range of motion. Skin: Warm, dry with normal turgor. Normal color with no rashes, no lesions, and no evidence of cellulitis. MS/ Extremity: Pulses equal, no cyanosis. Neurovascular intact. Full, normal range of motion. Neuro: Awake and alert, GCS 15, oriented to person, place, time, and situation. Cranial nerves II-XII grossly intact. Motor strength 5/5 in all extremities. Sensory grossly intact. Cerebellar exam normal. Normal gait. 13:24 Constitutional: The patient appears alert, awake, anxious, obese, restless. 13:24 Respiratory: the patient does not display signs of respiratory distress, Respirations: shallow respirations, that is moderate, tachypnea, Breath sounds: wheezing: expiratory is heard diffusely, L >R. 13:24 Psych: Behavior/mood is anxious, uncooperative, Oriented to person, place, time. Vital Signs: 13:00 BP 127 / 71; Pulse 88; Resp 26; Temp 98.3; Pulse Ox 97% on R/A; bp 13:50 BP 115 / 78; Pulse 86; Resp 21; Pulse Ox 98% ; bp 14:40 Resp 22 S; Pulse Ox 98% on R/A; aa5 MDM: 12:57 Patient medically screened. snw 14:21 Data reviewed: vital signs, nurses notes. Data interpreted: Pulse oximetry: on room air snw is 98 %. Counseling: I had a detailed discussion with the patient and/or guardian regarding: the historical points, exam findings, and any diagnostic results supporting the discharge/admit diagnosis, lab results, radiology results, the need for outpatient follow up, to return to the emergency department if symptoms worsen or persist or if there are any questions or concerns that arise at home. Special discussion: Based on the history and exam findings, there is no indication for further emergent testing or inpatient evaluation. I discussed with the patient/guardian the need to see the primary care provider for further evaluation of the symptoms. 06/03 13:10 Order name: COVID-19 snw 06/03 13:10 Order name: Flu snw 06/03 13:10 Order name: Chest Single View XRAY; Complete Time: 13:44 snw 06/03 13:10 Order name: CORONAVIRUS EDMS 06/03 13:10 Order name: Influenza Screen (A ; Complete Time: 14:14 EDMS Administered Medications: 13:26 Drug: Ativan 2 mg Route: PO; jl7 13:30 CANCELLED (Other Intervention Used): Decadron - Dexamethasone 10 mg IVP once snw 13:48 Drug: Aspirin 81 mg Route: PO; jl7 13:49 Drug: Decadron 10 mg Route: IM; Site: right deltoid; jl7 Disposition: 15:42 Co-signature as Attending Physician, Frederick Lim MD I agree with the assessment and kdr plan of care. Disposition: 06/03/20 14:19 Discharged to Home. Impression: Acute bronchitis, unspecified. - Condition is Stable. - Discharge Instructions: Acute Bronchitis, Adult, Rehydration, Adult, COVID-19. - Prescriptions for Zyrtec 10 mg Oral Tablet - take 1 tablet by ORAL route once daily As needed; 20 tablet. Prednisone 20 mg Oral Tablet - take 2 tablet by ORAL route once daily for 5 days; 10 tablet. Albuterol Sulfate 90 mcg/actuation - inhale 1-2 puff by INHALATION route every 4-6 hours; 1 Inhaler. Pepcid 20 mg Oral Tablet - take 1 tablet by ORAL route once daily; 20 tablet. Zithromax 500 mg Oral Tablet - take 1 tablet by ORAL route once daily for 5 days; 5 tablet. - Work release form, Medication Reconciliation Form, Thank You Letter, Antibiotic Education, Prescription Opioid Use form. - Follow up: Emergency Department; When: As needed; Reason: Worsening of condition. Follow up: Private Physician; When: 2 - 3 days; Reason: Recheck today's complaints, Continuance of care, Re-evaluation by your physician. Signatures: Dispatcher [employer] EDMS Frederick Lim MD MD kdr Veronica Shah, ORACLE IAM CONSULTANT-C ORACLE IAM CONSULTANT-Csnw Betsey Dinero, RN RN aa5 Tierra Rascon RN RN jl7 Hussein Ortiz RN RN bp Corrections: (The following items were deleted from the chart) 13:30 13:24 Decadron - Dexamethasone 10 mg IVP once ordered. snw snw 14:46 14:19 06/03/2020 14:19 Discharged to Home. Impression: Acute bronchitis, unspecified. aa5 Condition is Stable. Forms are Medication Reconciliation Form, Thank You Letter, Antibiotic Education, Prescription Opioid Use. Follow up: Emergency Department; When: As needed; Reason: Worsening of condition. Follow up: Private Physician; When: 2 - 3 days; Reason: Recheck today's complaints, Continuance of care, Re-evaluation by your physician. snw
--- NOTE | 2020-06-03 14:20 | ER ---
Nurse's Notes [facility] Name: Victor M Cortez Age: 34 yrs Sex: Female : 1985 Arrival Date: 06/03/2020 Time: 12:45 Bed 7 Private MD: Diagnosis: Acute bronchitis, unspecified Presentation: 06/03 13:00 Chief complaint: Patient states: "I CAN'T BREATH, I DON'T WANNA TALK. I KNOW I GOT THE bp SWAIN". Coronavirus screen: cough unrelated to allergies, difficulty breathing, Client presents with at least one sign or symptom that may indicate coronavirus-19. Standard/surgical mask placed on the client. Provider contacted for isolation considerations. Ebola Screen: No symptoms or risks identified at this time. Initial Sepsis Screen: Does the patient meet any 2 criteria? No. Patient's initial sepsis screen is negative. Does the patient have a suspected source of infection? No. Patient's initial sepsis screen is negative. Risk Assessment: Do you want to hurt yourself or someone else? Patient reports no desire to harm self or others. Onset of symptoms was June 02, 2020 at 09:00. 13:00 Method Of Arrival: Ambulatory bp 13:00 Acuity: ALO 4 bp Triage Assessment: 13:03 General: Appears distressed, uncomfortable, obese, Behavior is appropriate for age, bp agitated, anxious. Pain: Denies pain. EENT: Reports nasal congestion. Neuro: No deficits noted. Cardiovascular: No deficits noted. Respiratory: Reports shortness of breath cough that is Onset: The symptoms/episode began/occurred yesterday, the patient has moderate shortness of breath. GI: No signs and/or symptoms were reported involving the gastrointestinal system. : No signs and/or symptoms were reported regarding the genitourinary system. Derm: No deficits noted. Musculoskeletal: No deficits noted. Historical: - Allergies: 13:03 No Known Allergies; bp - Home Meds: 13:03 Unable to obtain [Active]; bp - PMHx: 13:03 Bipolar disorder; Hypertension; CHF; bp - Immunization history:: Adult Immunizations unknown. - Social history:: Smoking status: unknown. Screenin:00 Abuse screen: Denies threats or abuse. Denies injuries from another. Nutritional bp screening: No deficits noted. Tuberculosis screening: No symptoms or risk factors identified. Fall Risk None identified. Assessment: 13:00 General: SEE TRIAGE NOTE. Cardiovascular: Rhythm is sinus rhythm. Respiratory: Airway bp is patent Respiratory effort is even, labored, Breath sounds are coarse bilaterally. 13:50 Reassessment: No changes from previously documented assessment. Patient and/or family bp updated on plan of care and expected duration. Pain level reassessed. Patient is alert, oriented x 3, equal unlabored respirations, skin warm/dry/pink. 14:40 Respiratory: Airway is patent Respiratory effort is even, unlabored, Respiratory aa5 pattern is tachypnea. Derm: Skin is dry, Skin is normal, Skin temperature is warm. Vital Signs: 13:00 BP 127 / 71; Pulse 88; Resp 26; Temp 98.3; Pulse Ox 97% on R/A; bp 13:50 BP 115 / 78; Pulse 86; Resp 21; Pulse Ox 98% ; bp 14:40 Resp 22 S; Pulse Ox 98% on R/A; aa5 ED Course: 12:45 Patient arrived in ED. ag5 12:48 Veronica Shah [facility]-C [facility]. snw 12:48 Frederick Lim MD is Attending Physician. snw 12:57 Hussein Ortiz, TIARA is Primary Nurse. bp 13:00 Patient has correct armband on for positive identification. Placed in gown. Bed in low bp position. Call light in reach. Side rails up X2. 13:01 Triage completed. bp 13:04 Arm band placed on. bp 13:09 Pillow given. equipment monitor phototypesetting on. Pulse ox on. NIBP on. mh5 13:27 Chest Single View XRAY In Process Unspecified. EDMS 13:37 COVID-19 Sent. mh5 13:37 Flu Sent. mh5 13:38 COVID swab sent to lab. Flu and/or RSV swab sent to lab. mh5 14:40 No provider procedures requiring assistance completed. Patient did not have IV access aa5 during this emergency room visit. Administered Medications: 13:26 Drug: Ativan 2 mg Route: PO; jl7 13:30 CANCELLED (Other Intervention Used): Decadron - Dexamethasone 10 mg IVP once snw 13:48 Drug: Aspirin 81 mg Route: PO; jl7 13:49 Drug: Decadron 10 mg Route: IM; Site: right deltoid; jl7 Outcome: 14:19 Discharge ordered by MD. aguirre 14:40 Discharged to home ambulatory. aa5 14:40 Condition: stable 14:40 Discharge instructions given to patient, Instructed on discharge instructions, follow up and referral plans. medication usage, Demonstrated understanding of instructions, follow-up care, medications, Prescriptions given X 5. Pt instructed to quarantine, pending COVID-19 results, we will call to notify of results. 14:46 Patient left the ED. aa5 Addendum: 06/04/2020 17:15 Addendum: COVID-19 Result: Negative result given to RN to notify pt. Attempted to i w contact pt regarding negative COVID-19 swab results. Unable to leave voice mail due to the number provided was either not a working number, the voice mail has not been set up, or the voice mailbox is full.. 06/11/2020 08:36 Addendum: COVID-19 Result: Negative result given to RN to notify pt. Notified pt of d m5 negative COVID 19 swab results. Pt advised that even with a negative test result they should remain in isolation until symptom free for 3 days without medication. Pt also advised to return to the ED for worsening symptoms. Signatures: Dispatcher [employer] EDMS Azeb Ureña RN RN vernell5 Veronica Shah, CONCRETE BLOCK MAKER-C CONCRETE BLOCK MAKER-Csnw Marilee Brownlee, RN Betsey Batres RN RN Azalia Escudero Tierra Quinones RN RN jl7 Hussein Ortiz RN RN bp [place], Ajare 5 Corrections: (The following items were deleted from the chart) 06/03 14:47 14:40 Discharge instructions given to patient, Instructed on discharge instructions, aa5 follow up and referral plans. medication usage, Demonstrated understanding of instructions, follow-up care, medications, Prescriptions given X 4, Pt instructed to quarantine, pending COVID-19 results, we will call to notify of results. aa5
[2020-06-03 14:53] VITALS: TEMP 98.3
[2020-06-03 14:54] VITALS: BP 115/78; O2SAT 98
== END 2020-06-03 14:46 | disposition home or self-care (01) ==
LOC: ER 12:45
DX: J20.9 Acute bronchitis, unspecified (principal); Z20.828 Contact with and (suspected) exposure to other viral communicable diseases; I10 Essential (primary) hypertension
CPT/HCPCS: 87804 ×2; 71045; 96372; 99284; J1100; U0002